=== PATIENT | female | born 1975 | race Caucasian/White ===

== ENCOUNTER → 2018-04-01 08:39 | Outpatient (CLI) | payer OTHER, SELFPAY ==
--- NOTE | 2018-04-01 08:46 | MM_ITS ---
MM Dig screening mamm BI w/CAD CAD Screening COMPARISON: Digital mammograms 06/22/2016 and 6 month follow-up views left breast 01/04/2017 INDICATION: Is a history of breast cancer patient maternal grandmother. TECHNIQUE: Standard CC and MLO images were obtained. R2 CAD reviewed. FINDINGS: Prominent diffuse fibro-glandular densities are seen throughout both breasts. The findings are fairly symmetrical bilaterally. There are stable small nodular density left breast shown to be a cyst on previous ultrasound exam .There is no new or suspicious lesion in either breast and there are no suspicious microcalcifications. IMPRESSION: Moderate diffuse breast density with no suspicious lesion seen BI-RADS Category: 1 Negative RECOMMENDED FOLLOW-UP: 1YR - 1 YEAR FOLLOW-UP (A letter has been sent to the patient regarding results of the study.)
== END ==
PROVIDERS: Family Provider Family Medicine; PCP Physician Assistant; Visit Provider Obstetrics & Gynecology Gynecology
DX: Z12.31 Encounter for screening mammogram for malignant neoplasm of breast (principal)
CPT/HCPCS: 77067

== ENCOUNTER → 2019-04-18 12:30 | Outpatient (CLI) | payer OTHER, SELFPAY | PROVIDERS: Visit Provider Family Medicine | DX: N30.00 Acute cystitis without hematuria (principal) | CPT/HCPCS: 87086; 87088; 87186 ==

== ENCOUNTER → 2019-08-27 09:18 | Outpatient (CLI) | payer OTHER, SELFPAY ==
--- NOTE | 2019-08-27 09:21 | MM_ITS ---
PROCEDURE: MM DIG SCREENING MAMM BI W/CAD Patient Age:44Y CLINICAL INDICATION: SCREENING COMPARISON: DMSB DIG MAMM-SCREEN DIANE from 06/22/2016 DMDXUAVL DIG MAMM-DX UNI ADD VIEWS-LT from 07/06/2016 DMDXUL DIG MAMM-DX UNI-LT W/CAD from 01/04/2017 [facility] MM Dig screening mamm BI w/CAD from 04/01/2018 TECHNIQUE: Standard CC and MLO images were obtained. R2 CAD reviewed. FINDINGS: Left breast: On today's CC view there is a focal 1 cm area of density at the lateral central left breast but there is a corresponding area on the MLO view... this area believe is been present before and in fact there were spot views of this region Jun 2016. On today's CC view it does appear to be denser and more focal although favor this is most likely merely due to summation shadow, as it this density seems in the TM looks the to dissipate and appear stable on the MLO view. No added axillary CC view included today. his areas was highlighted by CAD computer review as wel. It does warrant additional views to further evaluate: Recommend cc and MLO spot view along with a full 90 degree view and and axillary CC view left breast also suggested The right breast appears stable with no new areas of concern . Today's slightly civil engineering manager technique does slightly accentuates the fibroglandular elements both breast IMPRESSION: Left breast-small focal area of density on the lateral breast on CC view is most likely due to summation shadow but does warrant additional spot views and ultrasound to further survey Right breast: Stable unremarkable. Follow-up 1 year on right recommended BI-RAD Category: 0 Need Additional Imaging Evaluation FOLLOW-UP: IMM Immediate Follow-up Recommended Spot views left breast recommended (A letter has been sent to the patient regarding results of the study.) Dictated by: Bert Wilson MD 08/30/2019 10:13 Electronically signed by Bert Wilson MD in [place] 08/30/2019 10:13
== END ==
PROVIDERS: PCP Physician Assistant; Visit Provider Obstetrics & Gynecology Gynecology
DX: Z12.31 Encounter for screening mammogram for malignant neoplasm of breast (principal)
CPT/HCPCS: 77067

== ENCOUNTER → 2019-09-17 15:08 | Outpatient (CLI) | payer OTHER, SELFPAY ==
--- NOTE | 2019-09-17 15:13 | MM_ITS ---
PROCEDURE: 1. MM DIG MAMM DX UNILAT LT CAD 2. US BREAST LT COMPLETE from 09/17/2019 Patient Age:44Y CLINICAL INDICATION: ABN recent screening MAMM: Asymmetric density left breast on recent screening mammogram COMPARISON: DMSB DIG MAMM-SCREEN DIANE from 06/22/2016 DMDXUAVL DIG MAMM-DX UNI ADD VIEWS-LT from 07/06/2016 DMDXUL DIG MAMM-DX UNI-LT W/CAD from 01/04/2017 [facility] MM Dig screening mamm BI w/CAD from 04/01/2018 MM DIG SCREENING MAMM BI W/CAD from 08/27/2019 US BREAST LT COMPLETE from 09/17/2019 TECHNIQUE: CC rolled CC as well views, 90 degree lateral whole breast image obtained.. In addition rolled CC views and axillary CC view view included FINDINGS: The mild asymmetric area of density upper-outer quadrant left breast DIAGNOSTIC MAMMOGRAM LEFT BREAST, including spot views: Area of minimal focal density seen noted on recent screening mammogram appears to compress out on today's additional views and spot views. This density dissipate on one view vs another, with overall pattern similar to previous studies. No persistent suspicious density or mass of significant concern. LEFT BREAST ULTRASOUND including axillary survey was also performed subsequently : Ultrasound revealed no areas of concern at left breast; the entire left breast was surveyed.. A few nonspecific benign the axillary lymph nodes observed with the axillary survey follow-up in August 2020 recommended. Annual follow-up would be important to further assure stability of this mild asymmetry. IMPRESSION: DIAGNOSTIC MAMMOGRAM LEFT BREAST,: The minimal asymmetric area of density noted on recent screening mammogram appears to compress out on today's additional views and spot views--no areas of significant concern left breast LEFT BREAST ULTRASOUND was unremarkable- Follow-up August 2020 recommended to resume annual schedule . Annual follow-up would be important to further confirm stability of the mild asymmetry BI-RAD Category: 2 Benign Finding(s) FOLLOW-UP: 1YR 1 Year Follow-up (A letter has been sent to the patient regarding results of the study.) Dictated by: Bert Wilson MD 09/21/2019 09:38 Electronically signed by Bert Wilson MD in [place] 09/21/2019 09:38
== END ==
PROVIDERS: PCP Physician Assistant; Visit Provider Obstetrics & Gynecology Gynecology
DX: R92.8 Other abnormal and inconclusive findings on diagnostic imaging of breast (principal)
CPT/HCPCS: 76641; 77065

== ENCOUNTER → 2020-06-20 13:18 | Outpatient (CLI) | payer OTHER, SELFPAY ==
[2020-06-21 16:16] LABS: Covid-19 Nasal PCR Sendout Lex NOT DETECTED
--- NOTE | 2020-06-21 16:47 | PC.NURSE ---
notifed patient of negative covid results.
== END ==
PROVIDERS: Visit Provider Internal Medicine Adolescent Medicine
DX: Z03.818 Encounter for observation for suspected exposure to other biological agents ruled out (principal)
CPT/HCPCS: U0004

== ENCOUNTER → 2020-09-06 16:32 | Outpatient (CLI) | payer OTHER, SELFPAY ==
--- NOTE | 2020-09-06 16:36 | MM_ITS ---
PROCEDURE: MM DIG SCREENING MAMM BI W/CAD Digital Breast Tomosynthesis Included CLINICAL INDICATION: SCREENING There is a history of breast cancer in the patient's paternal grandmother. COMPARISON: MG [facility] MM Dig screening mamm BI w/CAD from 04/01/2018 MG MM DIG SCREENING MAMM BI W/CAD from 08/27/2019 MG MM DIG MAMM DX UNILAT LT CAD from 09/17/2019 TECHNIQUE: Standard CC and MLO images and 3D Tomosynthesis was obtained. R2 CAD reviewed. FINDINGS: Moderate scattered diffuse fibroglandular densities are seen throughout both breasts. The findings are fairly symmetrical bilaterally. There is no suspicious lesion in either breast and no suspicious microcalcifications. IMPRESSION: Moderate breast density with no suspicious lesions seen BI-RAD Category: 1 Negative FOLLOW-UP: 1YR 1 Year Follow-up (A letter has been sent to the patient regarding results of the study.) Dictated by: Dr. Jordon Smith MD 09/09/2020 08:30 Dr. Jordon Smith MD in [place] 09/09/2020 08:30
== END ==
PROVIDERS: PCP Physician Assistant; Visit Provider Obstetrics & Gynecology Gynecology
DX: Z12.31 Encounter for screening mammogram for malignant neoplasm of breast (principal)
CPT/HCPCS: 77063; 77067

== ENCOUNTER → 2020-09-19 14:13 | Outpatient (CLI) | payer OTHER, SELFPAY ==
[2020-09-19 14:51] LABS: Hemoglobin A1C 5.3 % (4.0-6.0)
== END ==
PROVIDERS: Visit Provider Physician Assistant
DX: R73.9 Hyperglycemia, unspecified (principal)
CPT/HCPCS: 83036

== ENCOUNTER → 2020-11-04 07:06 | Outpatient (CLI) | payer OTHER, SELFPAY ==
[2020-11-04 08:40] LABS: Coronavirus 19 IgG Antibody Negative (Negative); Coronavirus 19 IgM Antibody Negative (Negative)
== END ==
PROVIDERS: PCP Physician Assistant; Visit Provider Physician Assistant
DX: Z11.52 Encounter for screening for COVID-19 (principal)
CPT/HCPCS: 36415; 86328; U0003

== ENCOUNTER → 2020-11-14 10:41 | Outpatient (CLI) | payer OTHER, SELFPAY ==
--- NOTE | 2020-11-14 10:41 | US_ITS ---
PROCEDURE: US THYROID CLINICAL INDICATION: thyromegaly COMPARISON: No exams were available for comparison FINDINGS: Right lobe: The right lobe is 3.9 x 1.2 x 1.4 cm. In the lower pole medially at its junction with the isthmus there is a 5 mm slightly hypoechoic well-circumscribed nodule. Left lobe: 3.9 x 1 x 1.2 cm. In the upper pole there is a 3 mm hypoechoic possible cystic nodule. In the lower pole there is a 6 mm mixed nodule well-circumscribed in addition, in the lower pole medially there is a 5 mm slightly hypoechoic nodule. Isthmus: A 3 mm hypoechoic nodules present in the right aspect of the isthmus centrally. Additional findings: IMPRESSION: Small bilateral thyroid nodules probably benign. Consider 6-12 month follow-up to confirm stability otherwise negative. Dictated by: Steve Miranda MD 11/14/2020 12:04 Steve Miranda MD in [place] 11/14/2020 12:04
== END ==
PROVIDERS: PCP Physician Assistant; Visit Provider Physician Assistant
DX: E01.0 Iodine-deficiency related diffuse (endemic) goiter (principal)
CPT/HCPCS: 76536

== ENCOUNTER → 2020-11-22 05:50 | Outpatient (CLI) | payer OTHER, SELFPAY | PROVIDERS: PCP Physician Assistant; Visit Provider Physician Assistant | DX: Z20.822 Contact with and (suspected) exposure to COVID-19 (principal); U07.1 COVID-19 | CPT/HCPCS: U0003 ==

== ENCOUNTER → 2020-12-19 13:45 | Outpatient (CLI) | payer OTHER, SELFPAY | PROVIDERS: Visit Provider Physician Assistant | DX: R30.0 Dysuria (principal) | CPT/HCPCS: 87086 ==

== ENCOUNTER → 2021-05-02 13:43 | Outpatient (CLI) | payer OTHER, SELFPAY ==
[2021-05-02 14:20] LABS: Basophils # 0.1 K/mm3 (0-0.2); Eosinophils # 0.3 K/mm3 (0.0-0.4); Eosinophils % 3.7 % (0.1-12.0); Hematocrit 40.6 % (37.0-47.0); Hemoglobin 13.7 g/dL (12.2-16.2); Lymphocytes # 2.5 K/mm3 (0.7-4.5); Lymphocytes % 34.4 % (10-50); Mean Corpuscular HGB Conc 33.8 g/dL (31.8-35.4); Mean Corpuscular Hemoglobin 29.4 pg (27.0-31.2); Monocytes # 0.3 K/mm3 (0.1-1.0); Monocytes % 4.1 % (1.7-9.3); Neutrophils # 4.2 K/mm3 (1.8-7.8); Neutrophils % 56.7 % (37.0-80.0); Platelet Count 337 K/mm3 (142-424); Red Blood Count 4.66 M/mm3 (4.20-5.40); Red Cell Distribution Width 12.9 % (11.5-17.5); White Blood Count 7.4 K/mm3 (4.8-10.8)
[2021-05-02 14:53] LABS: Erythrocyte Sedimentation Rate 16 mm/hr (0-20)
[2021-05-02 15:03] LABS: Free T4 (Free Thyroxine) 0.86 ng/dl (0.78-2.19)
[2021-05-02 16:29] LABS: Alanine Aminotransferase 27 U/L (12-78); Albumin Level 4.2 g/dl (3.5-5.0); Albumin/Globulin Ratio 1.6 (1.1-1.8); Alkaline Phosphatase 110 U/L (38-126); Anion Gap 15.4 mEq/L (5-15); Aspartate Amino Transferase 28 U/L (14-36); Bilirubin,Total 0.5 mg/dl (0.2-1.3); Blood Urea Nitrogen 11 mg/dl (7-17); Carbon Dioxide 28 mmol/L (22.0-30.0); Chloride 101 mmol/L (98-107); Estimated Glomerular Filt Rate 90 ml/min (>60); GFR (African American) 109 ML/MIN (>60); Gamma Glutamyl Transpeptidase 24 U/L (12-43); Globulin 2.7 g/dL (1.3-3.2); Glucose 74 mg/dl (74-100); Potassium 4.4 mmoL/L (3.5-5.1); Sodium 140 mmol/L (136-145); Total Protein,Serum 6.9 g/dl (6.3-8.2)
[2021-05-02 16:35] LABS: C-Reactive Protein 4.5 mg/L (0-4)
[2021-05-02 18:43] LABS: Thyroid Stimulating Hormone 1.18 uIU/mL (0.465-4.68)
[2021-05-02 19:01] LABS: Vitamin B12 541 pg/mL (239-931)
[2021-05-04 05:30] LABS: HIV Screen 4th Generation wRfx Non Reactive (Non Reactive)
[2021-05-04 09:39] LABS: Thyroid Peroxidase Antibodies <9 IU/mL (0-34)
[2021-05-04 10:25] LABS: Hep A Ab, IgM Negative (Negative); Hepatitis B Core Antibody IgM Negative (Negative); Hepatitis B Surface Antigen Negative (Negative); Hepatitis C Antibody <0.1 s/co ratio (0.0-0.9)
[2021-05-04 12:15] LABS: RA Latex Turbid. <10.0 IU/mL (0.0-13.9)
[2021-05-04 13:45] LABS: Peripheral Smear Review Scanned Result
[2021-05-04 14:21] LABS: Anti-Centromere B Antibodies <0.2 AI (0.0-0.9); Anti-DNA (DS) Ab Qn <1 IU/mL (0-9); Anti-Jo-1 <0.2 AI (0.0-0.9); Anti-Smith Antibody <0.2 AI (0.0-0.9); Antichromatin Antibodies <0.2 AI (0.0-0.9); Antiscleroderma-70 Antibodies 0.2 AI (0.0-0.9); RNP Antibodies 0.2 AI (0.0-0.9); Sjogren's Anti-SS-A <0.2 AI (0.0-0.9); Sjogren's Anti-SS-B <0.2 AI (0.0-0.9)
[2021-05-05 16:56] LABS: Thyroid Stimulating Immunoglob <0.10 IU/L (0.00-0.55)
[2021-05-05 23:07] LABS: Anti-Cyclic Citrullinated Pept 5 units (0-19)
== END ==
PROVIDERS: Visit Provider Physician Assistant
DX: L50.9 Urticaria, unspecified (principal); R53.83 Other fatigue
CPT/HCPCS: 80053; 80074; 82607; 82977; 84439; 84443; 84445; 85025; 85651; 86140; 86200; 86225; 86235; 86376; 86431; 86703; G0432

== ENCOUNTER → 2021-05-24 08:21 | Outpatient (CLI) | payer OTHER, SELFPAY ==
--- NOTE | 2021-05-24 08:22 | US_ITS ---
PROCEDURE: US THYROID CLINICAL INDICATION: 6 mth followup COMPARISON: US US THYROID from 11/14/2020 FINDINGS: Right lobe: Right lobe is 3.7 x 1.2 x 1.2 cm. There is a stable hypoechoic 5 mm nodule in the isthmus region on the right adjacent to the lower pole. This is not significantly changed. Left lobe: 3.9 x 1.2 x 1.5 cm. 4 mm cystic nodule upper pole unchanged. 4 mm mixed nodule lower pole unchanged. 5 mm isoechoic nodule mid pole medially unchanged. Isthmus: A five mm slightly hypoechoic nodules present in the central aspect of the isthmus which appears slightly more prominent compared to the previous exam measuring 3 mm. Additional findings: IMPRESSION: Small bilateral thyroid nodules most of which are unchanged. A small nodule in the central aspect of the isthmus appears slightly larger but still with a fairly benign appearance. Continued six-month follow-up suggested. Dictated by: Steve Miranda MD 05/24/2021 16:27 Steve Miranda MD in [place] 05/24/2021 16:27
== END ==
PROVIDERS: PCP Physician Assistant; Visit Provider Physician Assistant
DX: E04.1 Nontoxic single thyroid nodule (principal)
CPT/HCPCS: 76536

== ENCOUNTER → 2021-12-12 09:37 | Outpatient (CLI) | payer BC, SELFPAY ==
--- NOTE | 2021-12-12 09:47 | MM_ITS ---
PROCEDURE INFORMATION: Exam: MG Bilateral Screening 3D Mammography Exam date and time: 12/12/2021 9:47 AM Age: 46 years old Clinical indication: Encounter for screening mammogram for malignant neoplasm of breast TECHNIQUE: Imaging protocol: Bilateral Screening tomosynthesis and 2D mammography including computer-aided detection (CAD) when performed. COMPARISON: 1. MG MM DIG SCREENING MAMM BI W/CAD 09/06/2020 4:39 PM 2. MG MM DIG MAMM DX UNILAT LT CAD 09/17/2019 3:29 PM FINDINGS: MAMMOGRAPHY: Breast composition: The breast tissue is composed of scattered areas of fibroglandular density. Mass: None. Architectural distortion: None. Calcifications: No suspicious calcifications. Asymmetric density: None. Skin thickening: None. Axillary adenopathy: None. IMPRESSION: No mammographic evidence of malignancy. Annual screening is recommended unless otherwise clinically indicated. ASSESSMENT: BI-RADS Category 1: Negative
== END ==
PROVIDERS: PCP Physician Assistant; Visit Provider Physician Assistant
DX: Z12.31 Encounter for screening mammogram for malignant neoplasm of breast (principal)
CPT/HCPCS: 77063; 77067

== ENCOUNTER → 2022-05-23 16:53 | Outpatient (CLI) | payer BC, SELFPAY ==
[2022-05-23 14:15] LABS: Alanine Aminotransferase 26 U/L (12-78); Albumin/Globulin Ratio 1.4 (1.1-1.8); Alkaline Phosphatase 133 U/L (38-126); Anion Gap 10.5 mEq/L (5-15); Aspartate Amino Transferase 31 U/L (14-36); Bilirubin,Total 0.8 mg/dl (0.2-1.3); Blood Urea Nitrogen 10 mg/dl (7-17); Calcium 9.4 mg/dl (8.4-10.2); Carbon Dioxide 28 mmol/L (22.0-30.0); Chloride 104 mmol/L (98-107); Chol/HDL Ratio 5.7 (1-3.5); Cholesterol 300 mg/dl (140-200); Estimated Glomerular Filt Rate 90 ml/min (>60); GFR (African American) 109 ML/MIN (>60); Globulin 2.8 g/dL (1.3-3.2); Glucose 90 mg/dl (74-100); HDL Cholesterol 53 mg/dl (40-60); Potassium 4.5 mmoL/L (3.5-5.1); Sodium 138 mmol/L (136-145); Total Protein,Serum 6.8 g/dl (6.3-8.2); Triglycerides 195 mg/dl (30-150); VLDL Cholesterol 39 mg/dL (0-40)
[2022-05-23 14:19] LABS: Basophils # 0.1 K/mm3 (0-0.2); Basophils % 1.8 % (0.1-2.0); Eosinophils # 0.2 K/mm3 (0.0-0.4); Eosinophils % 3.3 % (0.1-12.0); Hematocrit 44.6 % (37.0-47.0); Hemoglobin 13.9 g/dL (12.2-16.2); Lymphocytes # 2.2 K/mm3 (0.7-4.5); Lymphocytes % 33.1 % (10-50); Mean Corpuscular HGB Conc 31.1 g/dL (31.8-35.4); Mean Corpuscular Hemoglobin 28.6 pg (27.0-31.2); Mean Corpuscular Volume 91.8 fl (81-99); Mean Platelet Volume 9.9 fl (7.4-10.4); Monocytes # 0.3 K/mm3 (0.1-1.0); Monocytes % 4.9 % (1.7-9.3); Neutrophils # 3.9 K/mm3 (1.8-7.8); Neutrophils % 56.9 % (37.0-80.0); Platelet Count 381 K/mm3 (142-424); Red Blood Count 4.86 M/mm3 (4.20-5.40); White Blood Count 6.8 K/mm3 (4.8-10.8)
[2022-05-23 14:25] LABS: Direct LDL Cholesterol 180.25 mg/dL (100-129)
[2022-05-23 14:32] LABS: Free Thyroxine Index 2.5 ug/dL (5.93-13.13); T4 (Thyroxine) 9.9 ug/dl (5.53-11.0); Triiodothryronine (T3) Uptake 25 % (23.5-40.5)
[2022-05-23 14:33] LABS: 25-OH Vitamin D, Total 28.2 ng/mL (30-100); T4 (Thyroxine) 9.6 ug/dl (5.53-11.0)
[2022-05-23 14:45] LABS: Thyroid Stimulating Hormone 1.44 uIU/mL (0.465-4.68)
[2022-05-23 15:54] LABS: Hemoglobin A1C 5.4 % (4.0-6.0)
[2022-05-25 11:16] LABS: C-Peptide 3.6 ng/mL (1.1-4.4); FSH 4.8 mIU/mL (.); LH 7.6 mIU/mL (.); Progesterone 0.2 ng/mL (.); Testosterone,Total 15 ng/dL (4-50)
[2022-05-29 14:17] LABS: Estrogen 127 pg/mL (.)
== END ==
PROVIDERS: PCP Physician Assistant; Visit Provider Physician Assistant
DX: R23.2 Flushing (principal); R73.9 Hyperglycemia, unspecified; Z80.8 Family history of malignant neoplasm of other organs or systems; E55.9 Vitamin D deficiency, unspecified
CPT/HCPCS: 80053; 80061; 82306; 82672; 83001; 83002; 83036; 84144; 84403; 84436; 84443; 84479; 84681; 85025

== ENCOUNTER → 2022-05-28 11:17 | Outpatient (CLI) | payer BC, SELFPAY ==
--- NOTE | 2022-05-28 11:17 | US_ITS ---
FINAL REPORT CLINICAL HISTORY: 1 year follow up thyroid COMPARISON: May 24, 2021 FINDINGS: THYROID ULTRASOUND The right lobe of the thyroid measures 3.8 x 1.3 x 1.2 cm. The left lobe of the thyroid measures 4.0 x 1.5 x 0.9 cm. There is a solid hypoechoic 5 x 4 x 2 mm TI-RADS 4 nodule in the right lobe adjacent to the isthmus stable from the prior exam. In the right lobe is a 4 x 3 x 2 mm cystic TI-RADS 1 nodule. In the mid left thyroid lobe is a 5 x 4 x 4 mm solid hypoechoic TI-RADS 4 nodule. Also in the left lobe is a 5 x 5 x 3 mm solid hypoechoic TI-RADS 4 nodule. All nodules are stable as compared to the prior exam. IMPRESSION: Multiple bilateral thyroid nodules, stable. Reviewed, Interpreted and Dictated by Chris Scott III, MD Transcribed by Joseph Duran Authenticated and . [facility]
== END ==
PROVIDERS: PCP Physician Assistant; Visit Provider Physician Assistant
DX: Z80.8 Family history of malignant neoplasm of other organs or systems (principal); Z79.899 Other long term (current) drug therapy
CPT/HCPCS: 76536

== ENCOUNTER → 2022-12-18 10:12 | Outpatient (CLI) | payer BC, SELFPAY ==
--- NOTE | 2022-12-18 10:12 | MM_ITS ---
PROCEDURE INFORMATION: Exam: MG Bilateral Screening 3D Mammography Exam date and time: 12/18/2022 10:08 AM Age: 47 years old Clinical indication: Screening mammogram. TECHNIQUE: Imaging protocol: Bilateral Screening tomosynthesis and 2D mammography including computer-aided detection (CAD) when performed. COMPARISON: 1. MG MM DIG SCREENING MAMM BI W/CAD 12/12/2021 9:45 AM 2. MG MM DIG SCREENING MAMM BI W/CAD 09/06/2020 4:39 PM 3. MG MM DIG MAMM DX UNILAT LT CAD 09/17/2019 3:29 PM 4. MG MM DIG SCREENING MAMM BI W/CAD 08/27/2019 9:49 AM FINDINGS: MAMMOGRAPHY: Breast composition: There are scattered areas of fibroglandular density. Mass: None. Architectural distortion: No new or suspicious architectural distortion. Calcifications: No new or suspicious calcifications are present Asymmetric density: No new or suspicious asymmetric density is present Skin thickening: None. Axillary adenopathy: None. IMPRESSION: No mammographic evidence of malignancy. Recommend annual screening mammography unless otherwise clinically indicated. ASSESSMENT: BI-RADS category 1: Negative
== END ==
PROVIDERS: PCP Physician Assistant; Visit Provider Physician Assistant
DX: Z12.31 Encounter for screening mammogram for malignant neoplasm of breast (principal)
CPT/HCPCS: 77063; 77067

== ENCOUNTER → 2023-05-04 09:29 | Outpatient (CLI) | payer BC, SELFPAY ==
[2023-05-04 11:11] LABS: Free T4 (Free Thyroxine) 0.95 ng/dl (0.78-2.19)
[2023-05-05 07:38] LABS: Thyroid Peroxidase Antibodies 17 IU/mL (0-34)
[2023-05-07 17:53] LABS: Thyroid Stimulating Immunoglob <0.10 IU/L (0.00-0.55)
== END ==
PROVIDERS: PCP Physician Assistant; Visit Provider Physician Assistant
DX: E03.9 Hypothyroidism, unspecified (principal)
CPT/HCPCS: 36415; 84436; 84439; 84443; 84445; 86376

== ENCOUNTER → 2023-08-30 14:27 | Outpatient (CLI) | payer BC, SELFPAY ==
--- NOTE | 2023-08-30 14:28 | US_ITS ---
FINAL REPORT TECHNIQUE: Real-time grayscale and color ultrasound of the thyroid was performed. CLINICAL HISTORY: thyroid nodule COMPARISON: 05/28/2022 FINDINGS: The thyroid gland measures 38 mm on the right and 37 mm on the left. The isthmus measures 3 mm. Nodules: Right isthmus 4 x 2 x 5 mm stable solid hypoechoic TR 4 nodule. Multiple other small nodules. IMPRESSION: Multiple small nodules measuring up to 5 mm. No follow-up recommended per TI-RADS criteria. Reviewed, Interpreted and Dictated by Chris Scott III, MD Transcribed by Rocio Freedman Authenticated and [facility]
== END ==
LOC: RAD 14:28
PROVIDERS: PCP Physician Assistant; Visit Provider Physician Assistant
DX: E03.9 Hypothyroidism, unspecified (principal)
CPT/HCPCS: 76536

== ENCOUNTER 2024-01-02 11:13 | Outpatient (CLI) | payer BC, OTHER, SELFPAY ==
[2024-01-02 11:34] LABS: Basophils % 0.7 % (0.1-2.0); Eosinophils # 0.3 K/mm3 (0.0-0.4); Eosinophils % 5.2 % (0.1-12.0); Hematocrit 42.9 % (37.0-47.0); Hemoglobin 13.8 g/dL (12.2-16.2); Lymphocytes # 2.2 K/mm3 (0.7-4.5); Lymphocytes % 36.6 % (10-50); Mean Corpuscular HGB Conc 32.2 g/dL (31.8-35.4); Mean Corpuscular Hemoglobin 30.3 pg (27.0-31.2); Mean Corpuscular Volume 94.3 fl (81-99); Mean Platelet Volume 8.8 fl (7.4-10.4); Monocytes # 0.2 K/mm3 (0.1-1.0); Monocytes % 3.3 % (1.7-9.3); Neutrophils # 3.2 K/mm3 (1.8-7.8); Neutrophils % 54.3 % (37.0-80.0); Platelet Count 288 K/mm3 (142-424); Red Blood Count 4.55 M/mm3 (4.20-5.40); Red Cell Distribution Width 12.7 % (11.5-17.5)
[2024-01-02 11:44] LABS: Alanine Aminotransferase 30 U/L (12-78); Albumin Level 3.9 g/dl (3.5-5.0); Albumin/Globulin Ratio 1.7 (1.1-1.8); Alkaline Phosphatase 97 U/L (38-126); Anion Gap 11.8 mEq/L (5-15); Aspartate Amino Transferase 31 U/L (14-36); Bilirubin,Total 0.8 mg/dl (0.2-1.3); Blood Urea Nitrogen 11 mg/dl (7-17); Calcium 9.1 mg/dl (8.4-10.2); Carbon Dioxide 25 mmol/L (22.0-30.0); Chloride 107 mmol/L (98-107); Cholesterol 258 mg/dl (140-200); Estimated Glomerular Filt Rate 107 ml/min (>60); GFR (African American) 129 ML/MIN (>60); Globulin 2.3 g/dL (1.3-3.2); Glucose 120 mg/dl (74-100); HDL Cholesterol 37 mg/dl (40-60); Potassium 3.8 mmoL/L (3.5-5.1); Sodium 140 mmol/L (136-145); Total Protein,Serum 6.2 g/dl (6.3-8.2); Triglycerides 157 mg/dl (30-150); VLDL Cholesterol 31 mg/dL (0-40)
[2024-01-02 11:59] LABS: Direct LDL Cholesterol 151.96 mg/dL (100-129)
[2024-01-02 12:03] LABS: 25-OH Vitamin D, Total 41.4 ng/mL (30-100)
[2024-01-02 12:04] LABS: Free Thyroxine Index 2.3 ug/dL (5.93-13.13); T4 (Thyroxine) 8.7 ug/dl (5.53-11.0); Triiodothryronine (T3) Uptake 27 % (23.5-40.5)
[2024-01-02 13:01] LABS: Hemoglobin A1C 5.6 % (4.0-6.0)
[2024-01-03 08:26] LABS: Thyroid Peroxidase Antibodies <9 IU/mL (0-34)
== END 2024-01-02 23:59 ==
LOC: LAB.DROPOF 11:14
PROVIDERS: PCP Physician Assistant; Visit Provider Physician Assistant
DX: R73.03 Prediabetes (principal); E78.5 Hyperlipidemia, unspecified; E03.9 Hypothyroidism, unspecified; E66.9 Obesity, unspecified; Z68.36 Body mass index [BMI] 36.0-36.9, adult; Z79.899 Other long term (current) drug therapy
CPT/HCPCS: 80053; 80061; 82306; 83036; 84436; 84443; 84479; 85025; 86376

== ENCOUNTER 2024-01-07 08:25 | Outpatient (CLI) | payer OTHER, BC, SELFPAY ==
[2024-01-10 07:43] LABS: Thyroid Stimulating Immunoglob <0.10 IU/L (0.00-0.55)
== END 2024-01-07 23:59 ==
LOC: LAB 08:26
PROVIDERS: PCP Physician Assistant; Visit Provider Physician Assistant
DX: E03.9 Hypothyroidism, unspecified (principal)
CPT/HCPCS: 36415; 84445

== ENCOUNTER 2024-01-16 07:51 | Outpatient (CLI) | payer OTHER, BC, SELFPAY ==
--- NOTE | 2024-01-16 07:51 | MM_ITS ---
PROCEDURE INFORMATION: Exam: MG Bilateral Screening 3D Mammography Exam date and time: 01/16/2024 7:49 AM Age: 48 years old Clinical indication: Screening examination TECHNIQUE: Imaging protocol: Bilateral Screening tomosynthesis and 2D mammography including computer-aided detection (CAD) when performed. COMPARISON: 1. MG MM DIG SCREENING MAMM BI W/CAD 12/18/2022 10:08 AM 2. MG MM DIG SCREENING MAMM BI W/CAD 12/12/2021 9:45 AM FINDINGS: MAMMOGRAPHY: Breast composition: There are scattered areas of fibroglandular density. Mass: Questionable 0.8 cm mass in the middle third of the left approximately 12 o'clock axis. Architectural distortion: None. Calcifications: No suspicious calcifications. Asymmetric density: None. Skin thickening: None. Axillary adenopathy: None. IMPRESSION: Patient to be recalled for spot compression views of the left breast in the CC and MLO projections, a full 90 degree lateral view, and possible left breast ultrasound for further evaluation of a left breast mass. ASSESSMENT: BI-RADS Category 0: Incomplete- Need Additional Imaging Evaluation and/or Prior Mammograms for Comparison.
== END 2024-01-16 23:59 ==
LOC: RAD 07:51
PROVIDERS: PCP Physician Assistant; Visit Provider Physician Assistant
DX: Z12.31 Encounter for screening mammogram for malignant neoplasm of breast (principal)
CPT/HCPCS: 77063; 77067

== ENCOUNTER 2024-02-05 07:51 | Outpatient (CLI) | payer OTHER, BC, SELFPAY ==
--- NOTE | 2024-02-05 07:52 | US_ITS ---
PROCEDURE INFORMATION: Exam: US Left Breast, Complete MG Left Diagnostic Breast Tomosynthesis Exam date and time: 02/05/2024 8:07 AM Age: 48 years old Clinical indication: Callback for additional assessment of possible 0.8 cm mass in the 12 o'clock left breast identified on screening mammogram 01/16/2024 TECHNIQUE: Imaging protocol: Complete ultrasound of all four quadrants of the left breast and the retroareolar regions, including ultrasound of the axilla when performed. Left Diagnostic tomosynthesis and 2D mammography including computer-aided detection (CAD) when performed. Unilateral or bilateral exam. COMPARISON: 09/17/2019,, 12/12/2021, 12/18/2022 FINDINGS: MAMMOGRAPHY: Breast composition: There are scattered areas of fibroglandular density. Breast mammogram findings: There is of a largely obscured 0.8 cm mass approximating 12 o'clock about 9 cm from the left nipple this demonstrates irregular margins and is mostly obscured. No associated suspicious calcifications ULTRASOUND: Breast ultrasound findings: In the region of mammographic interest, 12 o'clock 5 cm from the nipple, there is an irregular hypoechoic morphologically suspicious 0.8 x 0.5 x 0.8 cm mass IMPRESSION: Ultrasound-guided biopsy is recommended to definitively characterize a mammographically new left 12 o'clock morphologically suspicious breast mass ASSESSMENT: BI-RADS category 4: Suspicious
== END 2024-02-05 23:59 | disposition home or self-care (01) ==
LOC: RAD 07:52
PROVIDERS: PCP Physician Assistant; Visit Provider Physician Assistant
DX: R92.8 Other abnormal and inconclusive findings on diagnostic imaging of breast (principal)
CPT/HCPCS: 76641; 77061; 77065; G0279

== ENCOUNTER 2024-02-20 07:30 | Outpatient (CLI) | payer OTHER, BC, SELFPAY ==
--- NOTE | 2024-02-20 07:30 | US_ITS ---
FINAL REPORT CLINICAL HISTORY: abnormal mammogram--left breast mammatome-- dr lainez, left breast nodule FINDINGS: ULTRASOUND-GUIDED LEFT BREAST CORE BIOPSY TECHNIQUE: Limited images were obtained to localize region of interest. Subcentimeter hypoechoic lesion was again localized at 12:00. The left was prepped in a routine sterile fashion and locally anesthetized with 1% lidocaine. Standard written informed consent was obtained. An 11-gauge vacuum assisted hand-held device was utilized. The needle was positioned posterior to the lesion. Multiple vacuum assisted core samples were obtained. The lesion was noted to be significantly smaller following biopsy. A biopsy marker clip was deployed in satisfactory position. Postbiopsy mammogram showed postbiopsy changes with clip in satisfactory position. Procedure was well tolerated . CONCLUSION: 1. Technically successful ultrasound guided core vacuum assisted biopsy of left breast lesion as above. 2. Biopsy marker clip deployed Authenticated and [facility]N
--- NOTE | 2024-02-20 08:39 | MM_ITS ---
FINAL REPORT CLINICAL HISTORY: .s/p bx clip placement left breast nodule with biopsy FINDINGS: MAMMOGRAM LEFT TECHNIQUE: Standard digital 2-D views COMPARISON: 02/05/2024 and 01/06/2024 DENSITY: There are scattered areas of fibroglandular density FINDINGS: Post biopsy marker clip is noted to be in satisfactory position. The biopsy marker clip is noted to be at approximately 12:00. No discrete lesion is seen mammographically. Postbiopsy changes are noted. IMPRESSION: Biopsy marker clip in good position RECOMMENDATION: Pending histopathology evaluation Authenticated and ERN
== END 2024-02-20 23:59 | disposition home or self-care (01) ==
LOC: RAD 07:30
PROVIDERS: PCP Physician Assistant; Visit Provider Physician Assistant
DX: R92.8 Other abnormal and inconclusive findings on diagnostic imaging of breast (principal)
CPT/HCPCS: 19083; 77065; C2618

== ENCOUNTER 2024-04-23 09:50 | Outpatient (CLI) | payer OTHER, BC, SELFPAY | END 2024-04-23 23:59 | disposition home or self-care (01) | LOC: LAB.DROPOF 04-24 09:50 | PROVIDERS: PCP Physician Assistant; Visit Provider Physician Assistant | DX: N39.0 Urinary tract infection, site not specified (principal) | CPT/HCPCS: 87086 ==

== ENCOUNTER 2024-10-06 15:01 | Outpatient (CLI) | payer OTHER, BC, SELFPAY ==
--- NOTE | 2024-10-06 15:07 | CA_ITS ---
FINAL REPORT TECHNIQUE: Color Doppler, duplex Doppler and compression sonography of the left lower extremity deep venous systems was performed. CLINICAL HISTORY: Breast Cancer, Radiation therapy, painful Varicosities COMPARISON: None FINDINGS: There is no evidence of deep venous thrombosis from the level of the groin to the calf. There is superficial thrombophlebitis in a superficial calf vein. IMPRESSION: No evidence of deep venous thrombosis left lower extremity. Superficial thrombophlebitis in a superficial calf vein. Reviewed, Interpreted and Dictated by Chris Scott III, MD Transcribed by Carmela Pizarro Authenticated and [facility]
== END 2024-10-06 23:59 | disposition home or self-care (01) ==
LOC: RT 15:02
PROVIDERS: PCP Nurse Practitioner Family; Visit Provider Nurse Practitioner Family
DX: I80.02 Phlebitis and thrombophlebitis of superficial vessels of left lower extremity (principal)
CPT/HCPCS: 93971

== ENCOUNTER 2024-10-08 02:23 | Emergency (ER) | payer OTHER, BC, SELFPAY ==
[2024-10-08 02:25] VITALS: BP 133/73; PULSE 120; RESP 16; TEMP 37.4; O2SAT 96; BMI 37.4
--- NOTE | 2024-10-08 02:34 | XR_ITS ---
PROCEDURE INFORMATION: Exam: XR Chest Exam date and time: 10/08/2024 2:36 AM Age: 49 years old Clinical indication: Fever; Additional info: Fever unknown source, chemo TECHNIQUE: Imaging protocol: Radiologic exam of the chest. Views: 1 view. COMPARISON: No relevant prior studies available. FINDINGS: Tubes, catheters and devices: Central venous catheter distal tip is in the superior vena cava. Lungs: Unremarkable. No consolidation. Pleural spaces: Unremarkable. No pleural effusion. No pneumothorax. Heart/Mediastinum: Unremarkable. No cardiomegaly. Bones/joints: Unremarkable. IMPRESSION: No evidence of infiltrate or other acute process.
[2024-10-08] MEDS: ACETAMINOPHEN 500MG TAB 1000 MG PO (02:42)
[2024-10-08] MEDS: LACTATED RINGERS 1000ML 1,000 ML 999 ML IV (02:42)
--- NOTE | 2024-10-08 02:47 | [facility].EDGENADL ---
Discharge Plan Disposition Patient Disposition: Home, Self-Care Condition: Good Prescriptions Prescriptions: No Action cholecalciferol (vitamin D3) 25 mcg (1,000 unit) capsule 25 mcg PO DAILY Qty: 90 3RF esomeprazole magnesium [Nexium] 40 mg capsule,delayed release(DR/EC) 40 mg PO DAILY Qty: 90 3RF losartan 25 mg tablet 25 mg PO DAILY Qty: 30 2RF ergocalciferol (vitamin D2) 1,250 mcg (50,000 unit) capsule See Rx Instructions .ROUTE .COMPLEX Qty: 14 0RF Dose Instruction: Take 1 capsule by mouth once a week Rx Instructions: Take 1 capsule by mouth once a week thyroid (pork) [SURGERY MANAGER Thyroid] 30 mg tablet See Rx Instructions .ROUTE .COMPLEX Qty: 30 2RF Dose Instruction: Take 1 tablet by mouth once daily Rx Instructions: Take 1 tablet by mouth once daily lorazepam 0.5 mg tablet 0.5 mg PO Q8H PRN (Reason: anxiety) Qty: 30 0RF Referrals Follow up/Referrals: Dave Metzger APRN [Primary Care Provider] - See instructions Activity Restrictions/Add. Instructions Additional Instructions/Restrictions: Please follow-up with your primary care provider. Please return to the emergency department if you develop any new or worsening symptoms or become concerned for your health. Clinical Impressions Clinical Impression: Fever Qualifiers: Encounter type: initial encounter Print Language Print Language: Croatian Discharge ED Provider: Nj Moore Adult HPI General Chief complaint: Fever Stated complaint: fever Time Seen by Provider: 10/08/24 02:25 Mode of Arrival: Ambulatory Source of Information: Patient Limitations: No Limitations Description of Symptoms (Recalled from ER Triage Doc. by RN): Patient ambulatory to ED with complaints of fever. Patient with hx of breast cancer with last radiation tx on 09/29 and last chemo tx on 07/29. Patient reports that she was instructed by her oncologist that if she ran a fever for greater than 1 hour to go to emergency room. Patient temp at home was 102 orally. Current temp in ER 99.4. No meds prior to arrival. Denies any further complaints at this time. History of Present Illness HPI narrative: 49-year-old female with history of breast cancer stage II status post chemo and radiation, currently on Herceptin, presents for fever. Temp was 102 orally at home. She does not report any symptoms, denies chest pain abdominal pain shortness of breath cough urinary symptoms changes in bowel or bladder function. Last chemo was on 07/29. Last Herceptin infusion was within the last couple of weeks. Related Data Previous Rx's ?Medication ?Instructions ?Recorded cholecalciferol (vitamin D3) 25 25 mcg PO DAILY #90 caps 05/28/22 mcg (1,000 unit) capsule esomeprazole magnesium 40 mg 40 mg PO DAILY #90 caps 08/29/23 capsule,delayed release (Nexium) ergocalciferol (vitamin D2) 1,250 See Rx Instructions .Route 10/22/23 mcg (50,000 unit) capsule .COMPLEX #14 caps losartan 25 mg tablet 25 mg PO DAILY #30 tabs 10/22/23 thyroid (pork) 30 mg tablet (SURGERY MANAGER See Rx Instructions .Route 01/10/24 Thyroid) .COMPLEX #30 tabs lorazepam 0.5 mg tablet 0.5 mg PO Q8H PRN anxiety #30 tabs 03/17/24 Allergies Allergy/AdvReac Type Severity Reaction Status Date / Time lisinopril AdvReac Intermediate Cough Verified 04/23/24 14:47 rosuvastatin (From Crestor) AdvReac Intermediate Verified 04/23/24 14:47 PFSH PFSH Disclaimer: The information contained in this section may have been updated after the patient was seen, as this information can be updated by other users. Medical History (Updated 10/08/24 @ 04:51 by Nj Moore MD) Blood clot in leg Anxiety Hyperlipidemia Hypertension Hypothyroidism Surgical History History of partial hysterectomy Social History Smoking Status: Never smoker alcohol intake: current alcohol intake frequency: holidays/special occasions only substance use type: denies use current occupational status: employed Travel in the last 8 weeks: None Other Medical History Have you received the Pneumonia Vaccine: No ROS Obtained: Yes All systems reviewed & no additional complaints except as documented Physical Exam General General appearance: alert and in no apparent distress Head Head exam: atraumatic and normocephalic Eye Eye exam: Present normal appearance, PERRL and EOMI ENT ENT exam: Present normal oropharynx and normal external ear exam Neck Neck exam: Present normal inspection and full ROM Chest Chest inspection: Present normal inspection and symmetric chest wall rise; Absent tenderness Respiratory Respiratory exam: Present normal lung sounds bilaterally; Absent respiratory distress Cardiovascular Cardiovascular exam: Present regular rate and normal rhythm Abdominal Exam Abdominal exam: Present soft; Absent distention, tenderness or guarding Extremities Exam Extremities exam: Present normal inspection; Absent edema or joint swelling Back Exam Back exam: Present normal inspection; Absent tenderness Neurological Exam Neurological exam: Present alert and oriented X3; Absent motor sensory deficit Psychiatric Psychiatric exam: Present normal affect and normal mood Skin Skin exam: Present warm, dry and normal color Lymphatic Lymphatic Findings: no adenopathy Medical Decision Making Medical Records Medical records reviewed: Yes I reviewed the patient's medical records. Screening: Per USPSTF and CDC recommendations, given the prevalence of disease in our region, it is our hospital?s policy to screen for HIV and viral Hepatitis for all patients aged 18 and over and those with ongoing risk factors. Owen Inquiry Pt receiving controlled substance: No Owen was queried for this patient: No Vital Signs: 10/08/24 02:25 10/08/24 03:03 10/08/24 04:57 Temperature 99.4 F 98.5 F Temperature Source Oral Oral Oral Pulse Rate 92 H Pulse Rate [Left] 120 H Respiratory Rate 16 17 Blood Pressure 119/66 Blood Pressure [Right Arm] 133/73 Blood Pressure Mean [Right Arm] 93 Blood Pressure Source Automatic Cuff Blood Pressure Source [Right Arm] Automatic Cuff Blood Pressure Position Sitting Blood Pressure Position [Right Arm] Sitting 02 Sat by Pulse Oximetry 96 Oxygen Delivery Method Room Air Room Air Lab Data Lab results reviewed: Yes I reviewed the patient's lab results. Lab Results 10/08/24 02:42: WBC 6.1, RBC 4.32, Hgb 13.0, Hct 39.7, MCV 92.0, MCH 30.2, MCHC 32.8, RDW 13.3, Plt Count 254, MPV 8.0, Neut % (Auto) 74.9, Lymph % (Auto) 17.6, Phillips % (Auto) 5.2, Eos % (Auto) 1.7, Baso % (Auto) 0.6, Neut # (Auto) 4.6, Lymph # (Auto) 1.1, Phillips # (Auto) 0.3, Eos # (Auto) 0.1, Baso # (Auto) 0.0, Sodium 135 L, Potassium 4.1, Chloride 103, Carbon Dioxide 27, Anion Gap 9.1, BUN 10, Creatinine 0.80, Estimated Creat Clear 137, Estimated GFR 76, Est GFR ( Amer) 92, Glucose 126 H, Lactate 1.7, Calcium 9.0, Total Bilirubin 0.5, AST 30, ALT 27, Alkaline Phosphatase 102, Total Protein 6.6, Albumin 4.0, Globulin 2.6, Albumin/Globulin Ratio 1.5, HIV 1&2 Antibody Rapid Nonreactive 10/08/24 02:58: Chlamy pneumoniae PCR Not detected, Adenovirus (PCR) Not detected, B. pertussis DNA (PCR) Not detected, Coronavirus OC43 (PCR) Not detected, Coronavirus HKU1 (PCR) Not detected, Coronavirus 229E (PCR) Not detected, SARS-CoV-2 (PCR) Not detected, Coronavirus NL63 (PCR) Not detected, Human Metapneumovir PCR Not detected, Influenza A (H1) PCR Not detected, Influ A (H1N1/09) PCR Not detected, Influenza A (H3) PCR Not detected, Influenza Type A (PCR) Not detected, Influenza Type B (PCR) Not detected, M. pneumoniae (PCR) Not detected, Parainfluenza 1 (PCR) Not detected, Parainfluenza 2 (PCR) Not detected, Parainfluenza 3 (PCR) Not detected, Parainfluenza 4 (PCR) Not detected, RSV (PCR) Not detected, Entero/Rhino (PCR) Not detected 10/08/24 03:42: Urine Color Yellow, Urine Appearance Clear, Urine pH 7.5, Ur Specific Roberts 1.015, Urine Protein Negative, Urine Glucose (UA) Negative, Urine Ketones Negative, Urine Blood Negative, Urine Nitrate Negative, Urine Bilirubin Negative, Urine Urobilinogen 0.2, Ur Leukocyte Esterase Negative, Urine RBC Occasional, Urine WBC None, Ur Squamous Epith Cells 5-10, Urine Bacteria Trace 10/08/24 02:42 10/08/24 02:42 Orders (Tests/Meds): ED MEDICATIONS Discontinued Medications Generic Name Dose Route Start Last Admin Trade Name Freq PRN Reason Stop Dose Admin Acetaminophen 1,000 mg 10/08/24 02:34 10/08/24 02:42 Acetaminophen 500mg Tab PO 10/08/24 02:35 1,000 mg ONCE ONE Administration Lactated Ringer's 1,000 mls @ 999 mls/hr 10/08/24 02:45 10/08/24 02:42 Lactated Ringer's 1000 Ml Bag IV 10/08/24 03:45 999 mls/hr .Q1H1M LESLEY Administration Cefepime HCl 1 gm/ Sodium 50 mls @ 100 mls/hr 10/08/24 02:34 10/08/24 03:06 Chloride IV 10/08/24 02:35 100 mls/hr ONCE ONE Administration ORDERS Category Date Time Status CXR --portable [XR chest portable] Stat Exams 10/08/24 02:34 Completed CBC w/Auto Diff [Complete Blood Count Auto Diff] Stat Lab 10/08/24 02:42 Completed CMP [Comprehensive Metabolic Panel] Stat Lab 10/08/24 02:42 Completed Full Resp Panel w/COVID ([facility]) Routine Lab 10/08/24 02:58 Completed HIV (1&2) Antibody Rapid Stat Lab 10/08/24 02:42 Completed Hep C Ab with Reflex to RNA Stat Lab 10/08/24 02:42 Received Lactic Acid Stat Lab 10/08/24 02:42 Completed UA [Urinalysis and Microscopic] Stat Lab 10/08/24 03:42 Completed Blood Culture Stat Micro 10/08/24 03:03 Received Urine Culture Stat Micro 10/08/24 03:42 Received Medical Decision Narrative: 49-year-old female with history of breast cancer status post chemoradiation and currently therapy presents for fever with unknown source.. History was obtained via interactive discussion with patient, chart review. On arrival, patient is [afebrile, hemodynamically stable, satting appropriately, alert, oriented x4, GCS 15], moving all extremities spontaneously. Full physical exam performed and significant for no significant physical exam abnormalities. Differential includes but is not limited to neutropenic fever, bacteremia, UTI, pneumonia, viral syndrome. Patient was given 1 L IV fluid bolus, IV cefepime for symptomatic management and correction of underlying abnormalities. Workup initiated including CBC CMP UA urine culture blood culture chest x-ray viral panel. On re-evaluation, patient [remains afebrile, HD stable.] Laboratory workup independently interpreted by me and significant for normal cell lines, no evidence of neutropenia. No significant electrolyte derangement, viral panel negative, urine without evidence of infection. Imaging independently interpreted by me and significant for clear lungs bilaterally without focal opacity. See radiology read for full review of final results. Admission was considered, but deemed unnecessary due to patient is not neutropenic and is generally well-appearing. Given patient history, exam and workup, patient's presentation most likely represents fever of unknown source. Interact discussion was had with patient regarding her presentation. She was encouraged to follow-up with her team, monitor for additional symptoms, and she is given return precautions. Procedures Risk/Benefits of Procedure(s) Were Explained: Yes Critical Care Critical Care Time Critical Care Time: No
[2024-10-08 02:54] LABS: Basophils % 0.6 % (0.1-2.0); Eosinophils # 0.1 K/mm3 (0.0-0.4); Eosinophils % 1.7 % (0.1-12.0); Hematocrit 39.7 % (37.0-47.0); Lymphocytes # 1.1 K/mm3 (0.7-4.5); Lymphocytes % 17.6 % (10-50); Mean Corpuscular HGB Conc 32.8 g/dL (31.8-35.4); Mean Corpuscular Hemoglobin 30.2 pg (27.0-31.2); Monocytes # 0.3 K/mm3 (0.1-1.0); Monocytes % 5.2 % (1.7-9.3); Neutrophils # 4.6 K/mm3 (1.8-7.8); Neutrophils % 74.9 % (37.0-80.0); Platelet Count 254 K/mm3 (142-424); Red Blood Count 4.32 M/mm3 (4.20-5.40); Red Cell Distribution Width 13.3 % (11.5-17.5); White Blood Count 6.1 K/mm3 (4.8-10.8)
[2024-10-08 03:00] LABS: Lactic Acid 1.7 mmol/L (0.7-2.1)
[2024-10-08 03:01] LABS: Alanine Aminotransferase 27 U/L (12-78); Albumin/Globulin Ratio 1.5 (1.1-1.8); Alkaline Phosphatase 102 U/L (38-126); Anion Gap 9.1 mEq/L (5-15); Aspartate Amino Transferase 30 U/L (14-36); Bilirubin,Total 0.5 mg/dl (0.2-1.3); Blood Urea Nitrogen 10 mg/dl (7-17); Carbon Dioxide 27 mmol/L (22.0-30.0); Chloride 103 mmol/L (98-107); Creatinine Clearance Estimated 137 mL/min (50-200); Estimated Glomerular Filt Rate 76 ml/min (>60); GFR (African American) 92 ML/MIN (>60); Globulin 2.6 g/dL (1.3-3.2); Glucose 126 mg/dl (74-100); Potassium 4.1 mmoL/L (3.5-5.1); Sodium 135 mmol/L (136-145); Total Protein,Serum 6.6 g/dl (6.3-8.2)
[2024-10-08 03:03] LABS: Adenovirus,PCR Not Detected (NotDetected); Bordetella Pertussis Not Detected (NotDetected); Chlamydophila Pneumoniae, PCR Not Detected (NotDetected); Coronavirus 19, PCR Not Detected (NotDetected); Coronavirus 229E Not Detected (NotDetected); Coronavirus NL63 Not Detected (NotDetected); Coronavirus OC43 Not Detected (NotDetected); Coronovirus HKU1,PCR Not Detected (NotDetected); Human Metapneumovirus Not Detected (NotDetected); Influenza A, PCR Not Detected (NotDetected); Influenza AH1, 2009 Not Detected (NotDetected); Influenza AH1, PCR Not Detected (NotDetected); Influenza AH3,PCR Not Detected (NotDetected); Influenza B, PCR Not Detected (NotDetected); Mycoplasma Pneumoniae, PCR Not Detected (NotDetected); Parainfluenza 1, PCR Not Detected (NotDetected); Parainfluenza 2, PCR Not Detected (NotDetected); Parainfluenza 3, PCR Not Detected (NotDetected); Parainfluenza 4, PCR Not Detected (NotDetected); Respiratory Syncytial Virus Not Detected (NotDetected); Rhinovirus/Enterovirus Not Detected (NotDetected)
[2024-10-08] MEDS: CEFEPIME HCL 1 GM in 0.9 % SODIUM CHLORIDE 50 ML IV (03:06)
[2024-10-08 03:39] LABS: HIV (1&2) Antibody Rapid NONREACTIVE (NONREACTIVE)
[2024-10-08 03:53] LABS: Microscopic, Urine URINE MICROSCOPIC (MICROSCOPIC)
[2024-10-08 03:57] LABS: Appearance,Urine CLEAR (Clear); Bilirubin,Urine Negative (Negative); Blood, Urine Negative (Negative); Color,Urine YELLOW (Yellow); Glucose,Urine (UA) Negative (Negative); Ketones,Urine Negative (Negative); Leukocyte Esterase,Urine Negative (Negative); Nitrate,Urine Negative (Negative); PH,Urine 7.5 (5.0-8.5); Protein,Urine Negative (Negative); Specific Gravity, Urine 1.015 (1.005-1.030); Urobilinogen,Urine 0.2 EU/dl (0.2)
[2024-10-08 04:05] LABS: Bacteria,Urine Trace /lpf; RBC,Urine Occasional #/hpf (0-3)
[2024-10-08 04:57] VITALS: BP 119/66; PULSE 92; RESP 17; TEMP 36.9; O2SAT 94
[2024-10-09 06:11] LABS: HCV Ab Non Reactive (Non Reactive)
== END 2024-10-08 04:58 | disposition home or self-care (01) ==
PROVIDERS: Emergency Provider Emergency Medicine; PCP Nurse Practitioner Family
DX: R50.9 Fever, unspecified (principal)
CPT/HCPCS: 71045; 80053; 81001; 83605; 85025; 86803; 87040; 87086; 87389; 87633; 96361; 96374; 99283; J0692; J7120

== ENCOUNTER 2024-10-10 07:58 | Emergency (ER) | payer OTHER, BC, SELFPAY ==
[2024-10-10 08:11] VITALS: BP 133/83; PULSE 124; RESP 20; TEMP 37.3; O2SAT 96; BMI 38.2
--- NOTE | 2024-10-10 08:32 | ED_ITS ---
Discharge Plan Disposition Patient Disposition: Home, Self-Care Condition: Good Prescriptions Prescriptions: New methylprednisolone 4 mg Tablets,Dose Pack 4 mg PO DIRECTED 6 Days Qty: 21 0RF Rx Instructions: Take 1 pack as directed for 6 days btvuqflassjptsh-nltnbluta-[id number] [Bromfed DM] 2-30-10 mg/5 mL Syrup 5 ml PO Q6H PRN (Reason: Cough) Qty: 240 0RF azithromycin [Zithromax] 250 mg tablet 250 mg PO UD DOSE PK Qty: 6 0RF Rx Instructions: Take two (2) tablets today, then one (1) tablet days #2 thru #5 amoxicillin 500 mg tablet 500 mg PO TID 10 Days Qty: 30 0RF No Action esomeprazole magnesium [Nexium] 40 mg capsule,delayed release(DR/EC) 40 mg PO DAILY Qty: 90 3RF venlafaxine 75 mg capsule,extended release 24hr 75 mg PO DAILY Patient Comments: TAKE ONE CAPSULE BY MOUTH EVERY DAY Referrals Follow up/Referrals: Dave Metzger APRN [Primary Care Provider] - See instructions Activity Restrictions/Add. Instructions Additional Instructions/Restrictions: Drink plenty of fluids. Take tylenol or ibuprofen for pain or fever. Take the medications as directed. Follow up with your regular doctor. GO TO THE ER FOR ANY WORSENING SYMPTOMS Clinical Impressions Clinical Impression: Acute viral syndrome, Acute bronchitis, UTI (urinary tract infection) Instructions Patient Instructions: Acute Bronchitis, DI for Acute Bronchitis Print Language Print Language: Uzbek Discharge ED Provider: Jose Armando Mulligan [facility] General Stated complaint: fever, cough Mode of Arrival: Ambulatory Source of Information: Patient Time Seen by Provider: 10/10/24 08:32 Description of Symptoms (Recalled from Triage Doc. by RN): fever, dry cough, WEAK FEELING, TREATED IN ED ON SATURDAY EVENING, [place]ER[place] ALL TESTS INCLUDING CHEST XRAY, RECIEVED IVFS/ABS, D/C HOME HEENT Symptoms (Recalled from RN notes): No Resp Symptoms (Recalled from RN notes): Yes Skin Symptoms (Recalled from RN notes): No MS Symptoms (Recalled from RN notes): No Functional Status (Recalled from RN notes): WNL Related Data Home Medications ?Medication ?Instructions ?Recorded ?Confirmed venlafaxine 75 mg capsule,extended 75 mg PO DAILY 10/10/24 10/10/24 release 24 hr Previous Rx's ?Medication ?Instructions ?Recorded esomeprazole magnesium 40 mg 40 mg PO DAILY #90 caps 08/29/23 capsule,delayed release (Nexium) azithromycin 250 mg tablet 250 mg PO UD DOSE PK #6 tabs 10/10/24 (Zithromax) ksabatmnhlspkan-gpixrftrmlpfoiu-RB 5 ml PO Q6H PRN Cough #240 mL 10/10/24 2 mg-30 mg-10 mg/5 mL oral syrup (Bromfed DM) methylprednisolone 4 mg tablets in 4 mg PO DIRECTED 6 days #21 tabs 10/10/24 a dose pack amoxicillin 500 mg tablet 500 mg PO TID 10 days #30 tabs 10/15/24 Allergies Allergy/AdvReac Type Severity Reaction Status Date / Time lisinopril AdvReac Intermediate Cough Verified 04/23/24 14:47 rosuvastatin (From Crestor) AdvReac Intermediate Verified 04/23/24 14:47 Worker's Comp Is this a Worker's Comp case?: No [facility] Disclaimer: The information contained in this section may have been updated after the patient was seen, as this information can be updated by other users. Medical History (Updated 10/15/24 @ 08:30 by Jose Armando Mulligan APRN) Blood clot in leg Anxiety Hyperlipidemia Hypertension Hypothyroidism Surgical History History of partial hysterectomy Social History Smoking Status: Never smoker alcohol intake: current alcohol intake frequency: holidays/special occasions only substance use type: denies use current occupational status: employed Travel in the last 8 weeks: None Have you lived/traveled outside US in past 30 days?: No Contact w/someone who lives/traveled outside US past 30 days?: No Exposure to someone with infectious disease in past 14 days?: No Do you have a fever (greater than 100.4 F or 38 C)?: No Have you tested positive for COVID-19: No Exposed to someone with COVID-19 in past 14 days?: No Do you have a sore throat?: No Do you have a cough?: No Do you have any weakness?: No Do you have any diarrhea?: No Are you experiencing any unusual bleeding?: No Do you have any muscle aches/pain?: No Do you have any abdominal pain?: No Are you experiencing loss of taste or smell?: No ROS Obtained: Yes All systems reviewed & no additional complaints except as documented Constitutional Constitutional: Reports chills and Reports fever(s) Eyes Eyes: Denies eye discharge ENT Ears, Nose, Mouth, and Throat: Reports as per HPI Cardiovascular Cardiovascular: Denies chest pain Respiratory Respiratory: Denies chest congestion and Reports cough Gastrointestinal Gastrointestingal: Reports nausea; Denies abdominal pain, constipation, cramping, diarrhea or vomiting Musculoskeletal Musculoskeletal: Denies arthralgias Integumentary/Breasts Skin/Breast: Denies rash Neurologic Neurologic: Denies paresthesias Physical Exam General General appearance: alert and in no apparent distress Eye Eye exam: Present normal appearance, PERRL and EOMI ENT ENT exam: Present mucous membranes moist and normal external ear exam Expanded ENT Exam External ear exam: Present normal external inspection TM/Canal exam: Bilateral TM: erythema and bulging Nose exam: Absent sinus tenderness Nasal speculum exam: Bilateral: normal Mouth exam: Present normal external inspection; Absent drooling Teeth exam: Present normal inspection Throat exam: Present tonsillar erythema and tonsillomegaly Neck Neck exam: Present normal inspection, full ROM and trachea midline; Absent tenderness, lymphadenopathy or thyromegaly Chest Chest inspection: Present normal inspection and symmetric chest wall rise; Absent tenderness or rash Respiratory Respiratory exam: Present normal lung sounds bilaterally; Absent respiratory distress, wheezes, stridor or accessory muscle use Cardiovascular Cardiovascular exam: Present regular rate, normal rhythm and normal heart sounds Abdominal Exam Abdominal exam: Present soft; Absent distention, tenderness, guarding, rebound or rigidity Extremities Exam Extremities exam: Present normal inspection, full ROM and normal capillary refill; Absent tenderness or calf tenderness Back Exam Back exam: Present normal inspection and full ROM; Absent tenderness Neurological Exam Neurological exam: Present alert and oriented X3 Psychiatric Psychiatric exam: Present normal affect and normal mood Skin Skin exam: Present warm, dry, intact and normal color Lymphatic Lymphatic Findings: no adenopathy Medical Decision Making Medical Records Medical records reviewed: No I reviewed the patient's medical records. Screening: Per USPSTF and CDC recommendations, given the prevalence of disease in our region, it is our hospital?s policy to screen for HIV and viral Hepatitis for all patients aged 18 and over and those with ongoing risk factors. Owen Inquiry Pt receiving controlled substance: No Vital Signs: 10/10/24 08:11 Temperature 99.2 F Temperature Source Oral Pulse Rate [Left Radial] 124 H Respiratory Rate 20 Blood Pressure [Left Arm] 133/83 Blood Pressure Mean [Left Arm] 99 02 Sat by Pulse Oximetry 96 Lab Data Lab results reviewed: Yes I reviewed the patient's lab results. 10/10/24 08:43 10/10/24 08:43
[2024-10-10 08:39] LABS: Apearance,Urine Clear (Clear); Bilirubin,Urine Negative (Negative); Blood, Urine Negative (Negative); Color,Urine Yellow (Yellow); Glucose,Urine (UA) Negative (Negative); Ketones,Urine Negative (Negative); PH,Urine 6.5 (5.0-8.5); Protein,Urine Negative (Negative); UTC Leukocyte Esterase,Urine Negative (Negative); UTC Nitrate,Urine Negative (Negative); Urobilinogen,Urine 0.2 EU/dl (0.2)
--- NOTE | 2024-10-10 08:44 | XR_ITS ---
PROCEDURE INFORMATION: Exam: XR Chest Exam date and time: 10/10/2024 8:39 AM Age: 49 years old Clinical indication: Cough and other: Congestion - green; Additional info: Cough, congestion TECHNIQUE: Imaging protocol: Radiologic exam of the chest. Views: 2 views. COMPARISON: CR XR CHEST PORTABLE 10/08/2024 2:36 AM FINDINGS: Tubes, catheters and devices: Right-sided Port-A-Cath terminates in the region of the distal SVC. Lungs: Unremarkable. No consolidation. Pleural spaces: Unremarkable. No pleural effusion. No pneumothorax. Heart/Mediastinum: Unremarkable. No cardiomegaly. Bones/joints: Unremarkable. IMPRESSION: No acute findings.
[2024-10-10 08:58] LABS: UTC Influenza A Antigen Negative (Negative); UTC Influenza B Antigen Negative (Negative)
[2024-10-10 09:09] LABS: Basophils % 0.8 % (0.1-2.0); Eosinophils # 0.1 K/mm3 (0.0-0.4); Eosinophils % 1.8 % (0.1-12.0); Hematocrit 41.1 % (37.0-47.0); Hemoglobin 13.6 g/dL (12.2-16.2); Lymphocytes # 1.2 K/mm3 (0.7-4.5); Lymphocytes % 25.7 % (10-50); Mean Corpuscular Hemoglobin 30.3 pg (27.0-31.2); Mean Corpuscular Volume 91.8 fl (81-99); Mean Platelet Volume 7.9 fl (7.4-10.4); Monocytes # 0.2 K/mm3 (0.1-1.0); Monocytes % 5.3 % (1.7-9.3); Neutrophils % 66.5 % (37.0-80.0); Platelet Count 231 K/mm3 (142-424); Red Blood Count 4.48 M/mm3 (4.20-5.40); Red Cell Distribution Width 12.8 % (11.5-17.5); White Blood Count 4.5 K/mm3 (4.8-10.8)
[2024-10-10 09:23] LABS: Monoscreen (Rapid) Negative (Negative)
[2024-10-10 09:35] LABS: Chloride 103 mmol/L (98-107); Potassium 4.6 mmoL/L (3.5-5.1); Sodium 138 mmol/L (136-145)
[2024-10-10 09:38] LABS: Alanine Aminotransferase 30 U/L (12-78); Albumin/Globulin Ratio 1.5 (1.1-1.8); Alkaline Phosphatase 102 U/L (38-126); Anion Gap 8.6 mEq/L (5-15); Aspartate Amino Transferase 35 U/L (14-36); Bilirubin,Total 0.4 mg/dl (0.2-1.3); Blood Urea Nitrogen 10 mg/dl (7-17); Carbon Dioxide 31 mmol/L (22.0-30.0); Creatinine Clearance Estimated 124 mL/min (50-200); Estimated Glomerular Filt Rate 67 ml/min (>60); GFR (African American) 81 ML/MIN (>60); Globulin 2.6 g/dL (1.3-3.2); Total Protein,Serum 6.6 g/dl (6.3-8.2)
[2024-10-10 09:39] LABS: Calcium 9.5 mg/dl (8.4-10.2); Glucose 107 mg/dl (74-100)
[2024-10-10 10:01] LABS: UTC Strep Screen (Rapid) Negative (Negative)
[2024-10-10 11:05] VITALS: BP 133/83; PULSE 124; RESP 20; TEMP 37.3
[2024-10-10 11:36] LABS: Coronavirus 19, PCR Not Detected (NotDetected); Influenza A, PCR Not Detected (NotDetected); Influenza B, PCR Not Detected (NotDetected)
== END 2024-10-10 11:09 | disposition home or self-care (01) ==
PROVIDERS: Emergency Provider Nurse Practitioner Family; PCP Nurse Practitioner Family
DX: N39.0 Urinary tract infection, site not specified (principal); J20.9 Acute bronchitis, unspecified; B34.9 Viral infection, unspecified; R50.9 Fever, unspecified; R05.9 Cough, unspecified; R53.1 Weakness; R11.0 Nausea
CPT/HCPCS: 71046; 80053; 81003; 85025; 86318; 87086; 87088; 87186; 87636; 87804; 87880; 99212; G0381

== ENCOUNTER 2024-10-13 09:42 | Outpatient (CLI) | payer OTHER, BC, SELFPAY ==
--- NOTE | 2024-10-13 | CA_ITS ---
FINAL REPORT TECHNIQUE: Compression porter scale and Doppler evaluation CLINICAL HISTORY: follow up cancer patient with superficial thrombophlebitis of left anterior lateral varicosed calf vein. Persistent thrombophlebitis of said vessel though very improved with less thrombi COMPARISON: 10/06/2024. FINDINGS: LEFT LOWER EXTREMITY DOPPLER: Femoral and popliteal veins show normal compressibility and flow. Visualized portion of the deep calf veins are patent by Doppler exam. There is residual persistent thrombophlebitis of the left anterior lateral varicose vein, although flow has improved significantly since the prior exam of October 06. IMPRESSION: No evidence of left lower extremity deep venous thrombosis Improvement in flow in the thrombosed superficial left varicose vein since the prior exam of October 06. Reviewed, Interpreted and Dictated by Bharat Tamayo MD Transcribed by Sri Red Authenticated and [facility]
== END 2024-10-13 23:59 | disposition home or self-care (01) ==
LOC: RT 09:43
PROVIDERS: PCP Nurse Practitioner Family; Visit Provider Internal Medicine Hematology & Oncology
DX: I80.02 Phlebitis and thrombophlebitis of superficial vessels of left lower extremity (principal); C50.912 Malignant neoplasm of unspecified site of left female breast; Z17.0 Estrogen receptor positive status [ER+]
CPT/HCPCS: 93971

== ENCOUNTER 2024-10-27 16:00 | Outpatient (RCR) | payer OTHER, BC, SELFPAY | END 2024-10-27 23:59 | disposition home or self-care (01) | LOC: PT 16:00 | PROVIDERS: PCP Physician Assistant; Visit Provider Radiology Radiation Oncology | DX: C50.912 Malignant neoplasm of unspecified site of left female breast (principal); Z17.0 Estrogen receptor positive status [ER+] | CPT/HCPCS: 97110; 97140; 97163 ==

== ENCOUNTER 2024-11-05 12:35 | Outpatient (CLI) | payer OTHER, BC, SELFPAY ==
--- NOTE | 2024-11-05 12:38 | XR_ITS ---
FINAL REPORT CLINICAL HISTORY: PAIN COMPARISON: None FINDINGS: RIGHT KNEE Three views demonstrate no acute fracture or dislocation. The joint spaces appear normal. No acute soft tissue abnormality is seen. IMPRESSION: No acute bony abnormality. Reviewed, Interpreted and Dictated by Judson Baez MD Transcribed by Carmela Pizarro Authenticated and [facility]
== END 2024-11-05 23:59 | disposition home or self-care (01) ==
LOC: RAD 12:36
PROVIDERS: PCP Nurse Practitioner Family; Visit Provider Nurse Practitioner Family
DX: M25.561 Pain in right knee (principal)
CPT/HCPCS: 73562

== ENCOUNTER 2024-11-27 15:00 | Outpatient (RCR) | payer OTHER, BC, SELFPAY | END 2024-11-27 23:59 | disposition home or self-care (01) | LOC: PT 15:00 | PROVIDERS: PCP Physician Assistant; Visit Provider Orthopaedic Surgery | DX: R60.9 Edema, unspecified (principal); C50.912 Malignant neoplasm of unspecified site of left female breast; Z17.0 Estrogen receptor positive status [ER+] | CPT/HCPCS: 97140; 97164 ==

== ENCOUNTER 2024-11-29 14:25 | Emergency (ER) | payer OTHER, BC, SELFPAY ==
[2024-11-29 15:40] VITALS: BP 130/77; PULSE 110; RESP 23; TEMP 37.1; O2SAT 98; BMI 37.5
--- NOTE | 2024-11-29 16:01 | ED_ITS ---
Discharge Plan Disposition Patient Disposition: Home, Self-Care Condition: Good Prescriptions Prescriptions: New azithromycin [Zithromax Z-Matt] 250 mg tablet See Rx Instructions .ROUTE .COMPLEX 5 Days Qty: 6 0RF Rx Instructions: For 250 mg dose pack: take 500 mg today (day 1), then 250 mg for 4 days (days 2-5) methylprednisolone [Medrol (Matt)] 4 mg tablets,dose pack See Rx Instructions .Route .COMPLEX 6 Days Qty: 21 0RF Rx Instructions: taper pack; benzonatate 100 mg capsule 100 mg PO TID PRN (Reason: cough) Qty: 30 0RF No Action esomeprazole magnesium [Nexium] 40 mg capsule,delayed release(DR/EC) 40 mg PO DAILY Qty: 90 3RF venlafaxine 75 mg capsule,extended release 24hr 75 mg PO DAILY Patient Comments: TAKE ONE CAPSULE BY MOUTH EVERY DAY methylprednisolone 4 mg Tablets,Dose Pack 4 mg PO DIRECTED 6 Days Qty: 21 0RF Rx Instructions: Take 1 pack as directed for 6 days uaqernnwkwcjviz-tookqzyou-QE [Bromfed DM] 2-30-10 mg/5 mL Syrup 5 ml PO Q6H PRN (Reason: Cough) Qty: 240 0RF azithromycin [Zithromax] 250 mg tablet 250 mg PO UD DOSE PK Qty: 6 0RF Rx Instructions: Take two (2) tablets today, then one (1) tablet days #2 thru #5 amoxicillin 500 mg tablet 500 mg PO TID 10 Days Qty: 30 0RF fluconazole 150 mg tablet 150 mg PO ONCE Qty: 1 3RF Referrals Follow up/Referrals: Stephanie Olivera APRN [Primary Care Provider] - See instructions Activity Restrictions/Add. Instructions Additional Instructions/Restrictions: * Start antibiotic today. Be sure to complete entire prescription even if feeling better * Monitor temp. Tylenol every 4 hours as needed and / or ibuprofen every 6 hours as needed ( As long as your primary care physician has told you that it ok to take both. For fever/aches/pains ER if no less than 101 despite Tylenol or Motrin * Humidifier/vaporizer or hot steamy shower * *Tessalon Perles will not cause drowsiness but use at bedtime to help stop cough so that you may get some rest. *Start steroid today. Helps with inflammation therefore, cough and wheezing. Follow directions on the package. Reviewed side effects. Patient reports taking them before. Follow up IMMEDIATELY for new or worsening of symptoms OR no noticeable improvement over the next 48-72 hours. 911 immediately for any life threatening symptoms such as chest pain or difficulty breathing Clinical Impressions Clinical Impression: Acute bronchitis Instructions Patient Instructions: Acute Bronchitis Print Language Print Language: Kinyarwanda Discharge ED Provider: Oralia Sorensen [facility] [place] General Stated complaint: sob, cough Mode of Arrival: Ambulatory Source of Information: Patient Limitations: No Limitations Time Seen by Provider: 11/29/24 16:02 Description of Symptoms (Recalled from Triage Doc. by RN): PATIENT C/O PRODUCTIVE COUGH WITH BLOOD-TINGED SPUTUM FOR ALMOST 2 WEEKS HEENT Symptoms (Recalled from RN notes): No Resp Symptoms (Recalled from RN notes): Yes Skin Symptoms (Recalled from RN notes): No MS Symptoms (Recalled from RN notes): No Functional Status (Recalled from RN notes): WNL History of Present Illness Provider Complaint: Patient states that she has a hx of breast cancer States she has had a cough and chest congestion for about 2 weeks and at times she is coughing up thick greenish colored mucous and this morning she noticed it was a little blood tinged States that it is not alot of blood and not any clots States her throat has been irritated and she hasnt had a voice States that she has checked herself several times for COID and those test have been negative but today she came in to get checked Related Data Home Medications ?Medication ?Instructions ?Recorded ?Confirmed venlafaxine 75 mg capsule,extended 75 mg PO DAILY 10/10/24 10/10/24 release 24 hr Previous Rx's ?Medication ?Instructions ?Recorded esomeprazole magnesium 40 mg 40 mg PO DAILY #90 caps 08/29/23 capsule,delayed release (Nexium) azithromycin 250 mg tablet 250 mg PO UD DOSE PK #6 tabs 10/10/24 (Zithromax) qytofauzkwilwjk-ujkqsgupizdlwwp-SZ 5 ml PO Q6H PRN Cough #240 mL 10/10/24 2 mg-30 mg-10 mg/5 mL oral syrup (Bromfed DM) methylprednisolone 4 mg tablets in 4 mg PO DIRECTED 6 days #21 tabs 10/10/24 a dose pack amoxicillin 500 mg tablet 500 mg PO TID 10 days #30 tabs 10/15/24 fluconazole 150 mg tablet 150 mg PO ONCE 1 dose #1 tab 10/15/24 azithromycin 250 mg tablet See Rx Instructions PO .COMPLEX 5 11/29/24 (Zithromax Z-Matt) days #6 tabs benzonatate 100 mg capsule 100 mg PO TID PRN cough #30 caps 11/29/24 methylprednisolone 4 mg tablets in See Rx Instructions .Route 11/29/24 a dose pack (Medrol (Matt)) .COMPLEX 6 days #21 tabs Allergies Allergy/AdvReac Type Severity Reaction Status Date / Time lisinopril AdvReac Intermediate Cough Verified 04/23/24 14:47 rosuvastatin (From Crestor) AdvReac Intermediate Verified 04/23/24 14:47 Worker's Comp Is this a Worker's Comp case?: No [facility] Disclaimer: The information contained in this section may have been updated after the patient was seen, as this information can be updated by other users. Medical History (Updated 11/29/24 @ 17:11 by Oralia Sorensen APRN) Blood clot in leg Anxiety Hyperlipidemia Hypertension Hypothyroidism Surgical History History of partial hysterectomy Social History Smoking Status: Never smoker alcohol intake: current alcohol intake frequency: holidays/special occasions only substance use type: denies use current occupational status: employed Travel in the last 8 weeks: None Have you lived/traveled outside US in past 30 days?: No Contact w/someone who lives/traveled outside US past 30 days?: No Exposure to someone with infectious disease in past 14 days?: No Do you have a fever (greater than 100.4 F or 38 C)?: No Have you tested positive for COVID-19: No Exposed to someone with COVID-19 in past 14 days?: No Do you have a sore throat?: No Do you have a cough?: No Do you have any weakness?: No Do you have any diarrhea?: No Are you experiencing any unusual bleeding?: No Do you have any muscle aches/pain?: No Do you have any abdominal pain?: No Are you experiencing loss of taste or smell?: No ROS Obtained: Yes All systems reviewed & no additional complaints except as documented and Yes Systems reviewed as appropriate & no additional complaints except as documented Constitutional Constitutional: Reports system reviewed and no additional complaints, except as documented, Reports as per HPI, Denies body ache, Denies chills, Denies fever(s) and Denies headache(s) ENT Ears, Nose, Mouth, and Throat: Reports system reviewed and no additional complaints, except as documented, Reports as per HPI, Denies otalgia, Denies headache(s), Denies nasal congestion, Denies nasal discharge, Denies sinus pain, Denies sinus pressure and Denies sore throat Cardiovascular Cardiovascular: Reports system reviewed and no additional complaints, except as documented and Reports as per HPI Respiratory Respiratory: Reports system reviewed and no additional complaints, except as documented, Reports as per HPI, Denies shortness of breath, Reports chest congestion, Reports cough and Reports pain with cough (at times) Gastrointestinal Gastrointestingal: Reports system reviewed and no additional complaints, except as documented and as per HPI Neurologic Neurologic: Denies headache(s) Physical Exam General General appearance: alert and in no apparent distress ENT ENT exam: Present mucous membranes moist Respiratory Respiratory exam: Present normal lung sounds bilaterally; Absent respiratory distress or wheezes Cardiovascular Cardiovascular exam: Present regular rate, normal rhythm and normal heart sounds Abdominal Exam Abdominal exam: Present soft and normal bowel sounds; Absent distention or tenderness Neurological Exam Neurological exam: Present alert, oriented X3 and normal gait Medical Decision Making Medical Records Screening: Per USPSTF and CDC recommendations, given the prevalence of disease in our region, it is our hospital?s policy to screen for HIV and viral Hepatitis for all patients aged 18 and over and those with ongoing risk factors. Owen Inquiry Pt receiving controlled substance: No Owen was queried for this patient: No Vital Signs: 11/29/24 15:40 Temperature 98.8 F Temperature Source Oral Pulse Rate [Right Brachial] 110 H Respiratory Rate 23 Blood Pressure [Right Arm] 130/77 Blood Pressure Mean [Right Arm] 94 Blood Pressure Source [Right Arm] Automatic Cuff Blood Pressure Position [Right Arm] Sitting 02 Sat by Pulse Oximetry 98 Oxygen Delivery Method Room Air Radiology Data #1: Image(s): Chest
--- NOTE | 2024-11-29 16:05 | XR_ITS ---
PROCEDURE INFORMATION: Exam: XR Chest Exam date and time: 11/29/2024 4:07 PM Age: 49 years old Clinical indication: Cough; Prior surgery; Surgery date: 6+ months; Surgery type: Port placement, breast surgery; Additional info: Cough and congestion TECHNIQUE: Imaging protocol: Radiologic exam of the chest. Views: 2 views. COMPARISON: CR XR CHEST 2V 10/10/2024 8:39 AM FINDINGS: Tubes, catheters and devices: MediPort terminates in the superior vena cava Lungs: Unremarkable. No consolidation. Pleural spaces: Unremarkable. No pleural effusion. No pneumothorax. Heart/Mediastinum: Unremarkable. No cardiomegaly. Bones/joints: Unremarkable. IMPRESSION: No acute process
[2024-11-29 17:13] VITALS: BP 130/77; PULSE 110; RESP 23; TEMP 37.1; O2SAT 98
== END 2024-11-29 17:17 | disposition home or self-care (01) ==
PROVIDERS: Emergency Provider Nurse Practitioner; PCP Nurse Practitioner Family
DX: J20.9 Acute bronchitis, unspecified (principal)
CPT/HCPCS: 71046; 99213; G0381

== ENCOUNTER 2024-12-25 16:00 | Outpatient (RCR) | payer OTHER, BC, SELFPAY | END 2024-12-25 23:59 | disposition home or self-care (01) | LOC: PT 16:00 | PROVIDERS: PCP Physician Assistant; Visit Provider Orthopaedic Surgery | DX: I89.0 Lymphedema, not elsewhere classified (principal); C50.912 Malignant neoplasm of unspecified site of left female breast; Z17.0 Estrogen receptor positive status [ER+] | CPT/HCPCS: 97140; 97164 ==

== ENCOUNTER 2025-01-20 16:30 | Outpatient (RCR) | payer OTHER, BC, SELFPAY | END 2025-01-20 23:59 | disposition home or self-care (01) | LOC: PT 16:30 | PROVIDERS: Visit Provider Orthopaedic Surgery | DX: I89.0 Lymphedema, not elsewhere classified (principal); C50.912 Malignant neoplasm of unspecified site of left female breast; Z17.0 Estrogen receptor positive status [ER+] | CPT/HCPCS: 97140 ==

== ENCOUNTER 2025-01-27 16:40 | Outpatient (RCR) | payer OTHER, BC, SELFPAY | END 2025-01-27 23:59 | disposition home or self-care (01) | LOC: PT 16:40 | PROVIDERS: Visit Provider Orthopaedic Surgery | DX: C50.912 Malignant neoplasm of unspecified site of left female breast (principal); I89.0 Lymphedema, not elsewhere classified; Z17.0 Estrogen receptor positive status [ER+] ==

== ENCOUNTER 2025-05-04 12:05 | Outpatient (CLI) | payer OTHER, BC, SELFPAY | END 2025-05-04 23:59 | disposition home or self-care (01) | LOC: DIETICIAN 12:06 | PROVIDERS: PCP Nurse Practitioner Family; Visit Provider Nurse Practitioner Family | DX: R73.03 Prediabetes (principal) | CPT/HCPCS: 97802 ==

== ENCOUNTER 2025-05-07 09:46 | Day surgery (SDC) | payer OTHER, BC, SELFPAY ==
[2025-05-06 11:50] VITALS: BMI 37.9
--- NOTE | 2025-05-07 08:45 | EXP.GEN.HP ---
HPI HPI HPI: Patient is a 49-year-old female who has a history of GERD, hypertension, hyperlipidemia, hypothyroidism, ductal carcinoma of the breast who presents for initial screening colonoscopy. She has somewhat of a family history of colon cancer with her maternal uncle being diagnosed with colon cancer at young age of 46. She has some chronic constipation which has been exacerbated on tamoxifen. [facility] Disclaimer: The information contained in this section may have been updated after the patient was seen, as this information can be updated by other users. Medical History (Updated 05/07/25 @ 10:13 by Chrsi Rouse MD) Endometriosis Seizure disorder History of cataract Breast cancer Blood clot in leg Anxiety Hyperlipidemia Hypertension Hypothyroidism Surgical History (Updated 05/06/25 @ 11:47 by Carie Villegas, RN) History of lumpectomy of left breast History of partial hysterectomy Family History (Updated 05/06/25 @ 11:47 by Carie Villegas RN) Other Family history of cancer Family history of diabetes mellitus type II Family history of myocardial infarction Social History Smoking Status: Never smoker alcohol intake: current alcohol intake frequency: holidays/special occasions only substance use type: denies use current occupational status: employed Travel in the last 8 weeks?: None Have you lived/traveled outside US in past 30 days?: No Contact w/someone who lives/traveled outside US past 30 days?: No Exposure to someone with infectious disease in past 14 days?: No Do you have a fever (greater than 100.4 F or 38 C)?: No Have you tested positive for COVID-19?: No Exposed to someone with COVID-19 in past 14 days?: No Do you have a sore throat?: No Do you have a cough?: No Do you have any weakness?: No Do you have any diarrhea?: No Are you experiencing any unusual bleeding?: No Do you have any muscle aches/pain?: No Do you have any abdominal pain?: No Are you experiencing loss of taste or smell?: No Other Medical History Have you received the Pneumonia Vaccine: No Meds Home Medications and Allergies Home Medications ?Medication ?Instructions ?Recorded ?Confirmed ?Type venlafaxine 75 mg capsule,extended 75 mg PO DAILY 10/10/24 05/07/25 History release 24 hr sodium,potassium,mag sulfates 17.5 See Rx Instructions PO .COMPLEX 04/21/25 05/06/25 Rx gram-3.13 gram-1.6 gram oral soln #354 mL (Suprep Bowel Prep Kit) losartan 25 mg tablet 25 mg PO DAILY 05/06/25 05/07/25 History tamoxifen 20 mg tablet 20 mg PO DAILY 05/06/25 05/07/25 History New Prescriptions to Start Prescriptions: Allergies Allergy/AdvReac Type Severity Reaction Status Date / Time lisinopril AdvReac Intermediate Cough Verified 05/06/25 11:48 rosuvastatin (From Crestor) AdvReac Intermediate Joint Pain Verified 05/06/25 11:48 Exam Data for Last 24 hours I & O for Last 24 hours: Intake & Output 05/04/25 05/05/25 05/06/25 05/07/25 11:59 11:59 11:59 11:59 Weight 228 lb Constitutional Constitutional: no acute distress *Routine HEENT Exam Head: Present normocephalic Eye: Present EOMI and PERRL ENT: Present mucous membranes moist *Routine Neck Exam Neck: Present supple; Absent lymphadenopathy *Routine Respiratory Exam Respiratory: Present CTA bilaterally *Routine Cardiovascular Exam Cardiovascular: Present RRR *Routine Abdominal Exam Abdominal: Present soft and normoactive bowel sounds; Absent tenderness *Routine Rectal Exam Rectal:: deferred *Routine Genitalia Exam Genitalia:: deferred *Routine Extremities Exam Extremities: Absent cyanosis, clubbing or edema *Routine Skin Exam Skin: Present warm; Absent rash *Routine Neurological Exam Neurological: Present alert and oriented X3 Assessment and Plan *Assessment and plan (1) Encounter for screening colonoscopy: Status: Acute Category: Medical Code(s): Z12.11 - Encounter for screening for malignant neoplasm of colon Plan Proceed with colonoscopy.
[2025-05-07] MEDS: LACTATED RINGERS 1000ML 1,000 ML 25 ML IV (09:56)
[2025-05-07 09:58] VITALS: BP 133/78; PULSE 100; RESP 18; TEMP 36.1; O2SAT 96
--- NOTE | 2025-05-07 10:42 | HMH.SCOPE ---
Procedure: Date: 05/07/25 Patient Date of :: 1975 Procedure Performed:: Total colonoscopy to terminal ileum Indications:: Patient is a 49-year-old female who has a history of GERD, hypertension, hyperlipidemia, hypothyroidism, ductal carcinoma of the breast who presents for initial screening colonoscopy. She has somewhat of a family history of colon cancer with her maternal uncle being diagnosed with colon cancer at young age of 46. She has some chronic constipation which has been exacerbated on tamoxifen. . Performing Provider:: Chris Rouse MD Referring Provider:: Tish Olivera Sedation:: MAC sedation Procedure:: Patient history was obtained and appropriate physical examination was performed. Patient's medications and allergies were reviewed. Informed consent was obtained after explaining the benefits, alternatives, and risks of the procedure including, but not limited to, bleeding, perforation, missed lesions, and adverse reaction to anesthesia medications. Patient was transported to endoscopy procedure room. Patient was connected to monitoring devices. Throughout the procedure the patient's blood pressure, pulse, and oxygen saturations were monitored continuously. Patient identification and planned procedure were verified by the staff. Patient was positioned in lateral decubitus position. Digital anorectal exam was performed. Variable stiffness Olympus colonoscope was inserted and advanced under direct visualization to the cecum. Adequacy of the colonic preparation was noted. The colonoscope was advanced a short distance into the terminal ileum. The colonoscope was then slowly withdrawn while carefully examining the color, texture, anatomy, and integrity of the mucosoa circumferentially. Within the rectum retroflexion was performed. Colonoscope was then withdrawn. Impression: Colonic prep was excellent. There were left colon diverticula, otherwise colonoscopy unremarkable. Findings:: Rare left-sided diverticuli Recommendations:: Repeat colonoscopy 7 to 10 years unless otherwise indicated Complications:: None immediately apparent Estimated blood obtained (mL): 0 Colonoscopy Component Colonoscopy Component Was a colonoscopy performed during today's procedure?: Yes Recommended follow up colonoscopy of at least 10 years?: Yes
[2025-05-07 10:44] VITALS: BP 95/54; PULSE 90; RESP 17; TEMP 36.1; O2SAT 97
[2025-05-07 10:54] VITALS: BP 125/80; PULSE 89; RESP 17; TEMP 36.1; O2SAT 98
--- NOTE | 2025-05-07 11:03 | EXP.ANES.CKL ---
[facility] Disclaimer: The information contained in this section may have been updated after the patient was seen, as this information can be updated by other users. Medical History (Updated 05/07/25 @ 10:13 by Chris Rouse MD) Endometriosis Seizure disorder History of cataract Breast cancer Blood clot in leg Anxiety Hyperlipidemia Hypertension Hypothyroidism Surgical History (Updated 05/06/25 @ 11:47 by Carie Villegas RN) History of lumpectomy of left breast History of partial hysterectomy Family History (Updated 05/06/25 @ 11:47 by Carie Villegas RN) Other Family history of cancer Family history of diabetes mellitus type II Family history of myocardial infarction Social History Smoking Status: Never smoker alcohol intake: current alcohol intake frequency: holidays/special occasions only substance use type: denies use current occupational status: employed Travel in the last 8 weeks?: None [facility] Anesthesia Checklist Patient Identification Patient Identification: Arm Band and Family Structural Data Admitted From: Home Planned Operative Procedure/s: Colonoscomy Consent for Planned Operative Procedure(s) Verified: Yes Verified Documents: Surgical Consent and History and Physical NPO Status Verified Time NPO: 00:00 Additional verifications Patient : No Anesthesia Reactions: No Hx Blood Transfusions: No Blood Transfusion Reaction: No Cephalosporin Allergy: No Previous Colonoscopy: No Airway Assessment Mallampati Score:: Class II C-Spine Mobility Assessed: Yes TMJ Mobility Assessed: Yes Dentition: Good Dentition Neurological Assessment Level of Consciousness: Awake, Alert, Appropriate and Follows Commands Hx Seizures: No Numbness or tingling in extremities: No Anesthesia Plan Anesthesia Risk discussed: Yes ASA Class: II Anesthesia Type: MAC
[2025-05-07 11:04] VITALS: BP 128/76; PULSE 86; RESP 18; TEMP 37.2; O2SAT 99
[2025-05-07 11:14] VITALS: BP 120/66; PULSE 85; RESP 18; TEMP 36.1; O2SAT 99
== END 2025-05-07 11:20 | disposition home or self-care (01) ==
PROVIDERS: PCP Nurse Practitioner Family; Visit Provider Surgery
PROC: 0DJD8ZZ Inspection of Lower Intestinal Tract, Via Natural or Artificial Opening Endoscopic (ICD-10-PCS; CPT 45378; principal; 2025-05-07 11:10)
DX: Z12.11 Encounter for screening for malignant neoplasm of colon (principal); C50.912 Malignant neoplasm of unspecified site of left female breast; Z80.0 Family history of malignant neoplasm of digestive organs; K57.30 Diverticulosis of large intestine without perforation or abscess without bleeding; K59.03 Drug induced constipation; T38.6X5A Adverse effect of antigonadotrophins, antiestrogens, antiandrogens, not elsewhere classified, initial encounter; I10 Essential (primary) hypertension; F41.9 Anxiety disorder, unspecified; Z79.899 Other long term (current) drug therapy; Z88.8 Allergy status to other drugs, medicaments and biological substances; Z79.810 Long term (current) use of selective estrogen receptor modulators (SERMs)
CPT/HCPCS: 45378; J2003; J2704; J7120

== ENCOUNTER 2025-05-19 09:20 | Outpatient (CLI) | payer OTHER, BC, SELFPAY ==
--- OUTSIDE RECORDS SUMMARY | 2024-08-04 05:40 | XMS_ITS | Encounter Summary ---
[facility] [address] [place] [address] Care Team Providers Care Foundry Tender Name Role Phone Dalila Willoughby Primary Care Provider [phone] Reason for Visit * Auth/Cert (Routine) Specialty Diagnoses / Procedures Referred By Contac t Referred To Contact Diagnoses Malignant neoplasm of unspecified site of left female breast Referral ID Status Reason Start Date Expiration Date Visits Re quested Visits Authorized [id number] 1 1 Encounter Details Date Type Department Care Team (Late st Contact Info) Description 08/04/2024 5:40 AM EDT Hospital Encounter [facility] ON[facility] [address] [phone] Social History Tobacco Use Types [...] Description 07/15/2025 11:15 AM EDT Office Visit [facility] [address] [facility] [address] [place] [phone] Rocio Kellogg MD [address] [facility] [address] [place] [address] 07/22/2025 9:00 AM EDT Appointment [facility] [address] [facility] [address] [place] [address] 11/17/2025 1:00 PM EST Office Visit [facility] [address] [place] [phone] Maria Guadalupe Escamilla MD [address] [place] [address] 11/18/2025 10:00 AM EST Office Visit [facility] [address] [place] [phone] Gissel Blum APRN [address] [place] [address] documented as of this encounter Visit Diagnoses Not on filedocumented in this encounter Additional Health Concerns Assessment Noted Time PHQ-2 Depression Total Score: 2 04/07/20 24 2:53 PM EDT documented as of this encounter Care Teams Foundry Tender Relationship Specialty Start Date End Date Dalila Willoughby PA [address] [place] [address] PCP - General Physician Mixing Picker Tender 05/07/23 10/21/24 documented as of this encounter
--- OUTSIDE RECORDS SUMMARY | 2024-11-17 15:37 | XMS_ITS | Encounter Summary ---
Author Organization [facility] Address [address] [place] [address] Care Team Providers Care Employee Communications Coordinator Name Role Phone Stephanie Olivera APRN Primary Care Provid er Reason for Visit * Diagnostic Imaging (Routine) - Closed Specialty Diagnoses / Procedures Referred By Contac t Referred To Contact Radiology Diagnoses Nontoxic multinodular goiter Procedures US Thyroid Maria Guadalupe Escamilla MD [address] [employer] [place] [address] [place] [address] Phone: tel: fax: Referral ID Status Reason Start Date Expiration Date Visits Re quested Visits Authorized [id number] Closed 11/17/2024 11/17/2025 1 1 Encounter Details Date Type Department Care Team (Late st Contact Info) Description 11/17/2024 2:37 PM EST Hospital Encounter [facility] ENDOCRINOLOGY [address] [employer] [address] [place] [phone] Social History Tobacco Use Types Packs/Day [...] Description 07/15/2025 11:15 AM EDT Office Visit [facility] HEMATOLOGY & ONCOLOGY [address] [facility] [address] [place] [phone] Rocio Kellogg MD [address] [facility] [address] [place] [address] 07/22/2025 9:00 AM EDT Appointment [facility] [address] [facility] [address] [place] [address] 11/17/2025 1:00 PM EST Office Visit [facility] ENDOCRINOLOGY [address] [place] [address] Maria Guadalupe Escamilla MD [address] [place] [address] 11/18/2025 10:00 AM EST Office Visit [facility] [address] [place] [phone] Gissel Blum APRN [address] [place] [address] documented as of this encounter Procedures Procedure [...] documented as of this encounter Care Teams Employee Communications Coordinator Relationship Specialty Start Date End Date Stephanie Olivera APRN [facility]0 [facility] [address] [facility] [address] [place] [address] PCP - General Family Medicine 10/22/24 documented as of this encounter
--- OUTSIDE RECORDS SUMMARY | 2025-04-09 11:30 | XMS_ITS | Encounter Summary ---
Author Organization [facility] Address [address] [place] [address] Care Team Providers Care Metal Fabrication Supervisor Name Role Phone Stephanie Olivera APRN Primary Care Provid er Reason for Referral * Consultation (Routine) - Pending Review Specialty Diagnoses / Procedures Referred By Contmain t Referred To Contact General Surgery Diagnoses Malignant neoplasm of left breast in female, estrogen receptor positive, unspecified site of breast Procedures CT OFFICE/OUTPATIENT NEW MODERATE MDM 45 MINUTES Dhara Delaney APRN [address] [facility] [address] [place] [address] Phone: tel: fax: Frandy Menendez MD [address] [facility] [address] [place] [address] Phone: tel: fax: Referral ID Status Reason Start Date Expiration Date Visits Requested Visits Authorized Pending Review Specialty Services Required 04/09/2025 07/09/2026 1 1 Encounter Details Date Type Department Care Team (Late st Contact Info) Description 04/09/2025 11:30 AM EDT Office Visit [facility] HEMATOLOGY & ONCOLOGY [address] [facility] [address] [place] [address] Dhara Delaney APRN [address] [facility] [address] [place] [address] Malignant neoplasm of left breast in female, estrogen receptor positive, unspecified site of breast (Primary Dx) Social History Tobacco Use Types Packs/Day Years Used Date Smoking Tobacco: Never Smokeless Tobacco: Never Tobacco Cessation:Counseling Given: Not Answered Alcohol Use Standard Drinks/Week Comments Never 0 [...] on file documented as of this encounter Last Filed Vital Signs Vital Sign Reading Time Taken Comments Blood Pressure 130/84 04/09/2025 11:26 AM EDT Pulse 78 04/09/2025 11:26 AM EDT Temperature 36.2 C (97.1 F) 04/09/2025 11:26 AM EDT Respiratory Rate - - Oxygen Saturation 99% 04/09/2025 11:26 AM EDT Inhaled Oxygen Concentration - - Weight 102 kg (225 lb) 04/09/2025 11:26 AM EDT Height 165.1 cm (5' 5 ) 04/09/2025 11:26 AM EDT Body Mass Index 37.44 04/09/2025 11:26 AM EDT documented in this encounter Progress Notes * Dhara Delaney, JERROD - 04/09/2025 11:30 AM EDT PROBLEM LIST: pT1cN0(i+)M0 ER positive (100%, 3+) CT positive (>95%, 3+) HER2 positive (2+, positive by FISH) invasive ductal carcinoma of the left breast Left breast lumpectomy on 03/27/2024. Pathology showed an intermediate grade invasive ductal carcinoma with micropapillary features measuring 1.1 cm with extensive lymphovascular invasion. Isolated tumor cells in 1 of 2 sentinel lymph nodes. Adjuvant chemotherapy with TCH started 04/15/24. Completed maintenance Herceptin 04/09/2025. Completed radiotherapy to left breast 09/29/2024. Tamoxifen started 12/03/24. Subjective CHIEF COMPLAINT: breast cancer HISTORY OF PRESENT ILLNESS: Martha Gregory returns for follow-up. She is scheduled for her last dose of maintenance Herceptin today. She continues on tamoxifen. She has noticed generalized joint pain and some brain fog since starting the tamoxifen. She continues to have leg pain along with swelling in her legs despite wearing compression stockings. Due to her ongoing leg pain she is going to go to part- time April 27, 2025. She continues to have problems with constipation despite eating prunes and taking MiraLAX daily. About once a week she has to use a laxative. Objective BP 130/84 Pulse 78 Temp 97.1 ??F (36.2 ??C) (Infrared) Ht 165.1 cm (65 ) Wt 102 kg (225 lb) SpO2 99% BMI 37.44 kg/m?? Vitals: 04/09/25 1126 PainSc: 0-No pain ECOG score: 0 General: well appearing female in no acute distress Neuro: alert and oriented HEENT: sclera anicteric, oropharynx clear Lungs: clear bilaterally Skin: no rashes, lesions, bruising, or petechiae Psych: mood and affect appropriate RECENT LABS: Lab Results Component Value Date WBC 5.36 03/18/2025 HGB 11.6 (L) 03/18/2025 HCT 35.2 03/18/2025 MCV 89.8 03/18/2025 PLT 222 03/18/2025 Lab Results Component Value Date GLUCOSE 95 03/18/2025 BUN 10 03/18/2025 CREATININE 0.72 03/18/2025 BCR 13.9 03/18/2025 K 4.0 03/18/2025 CO2 28.0 03/18/2025 CALCIUM 8.8 03/18/2025 ALBUMIN 3.7 03/18/2025 AST 15 03/18/2025 ALT 15 03/18/2025 ASSESSMENT AND PLAN: Martha Gregory is a 49 y.o. 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 She has completed 6 cycles of TCH and now continues on maintenance Herceptin. Today is her last dose of maintenance Herceptin. Tamoxifen was started 12/03/2024. She does have some generalized joint pain related to the tamoxifen. We will plan to continue the tamoxifen for minimum of 5 years. Bilateral diagnostic mammogram on 01/18/2025 was category 3. Left diagnostic mammogram recommended for 6 months. Order has already been placed. Will have our flame hardening machine setter help make arrangements for mammogram due in June. Hot flashes/anxiety: Continue Effexor. Constipation: Increase prune intake and continue Miralax. She is going to try Flaxseeds in her smoothie daily. Reinforced importance of drinking plenty of water with the flaxseed. ICE COMPRESS Study: Neuropathy improved to grade 1. Thyroid nodules: follows with endocrinology. Chronic venous insufficiency: followed by vascular surgeon Dr. Bang Barkley at [facility]. She is wearing compression socks. Nocturnal leg cramps: Improved with magnesium. We also discussed doing some walking and light stretching before bed. Will send a referral to Dr. Menendez to get port removed. Follow-up in 3 months with labs. I spent 46 minutes caring for Martha on this date of service. This time includes time spent by me in the following activities: preparing for the visit, reviewing tests, performing a medically appropriate examination and/or evaluation, counseling and educating the patient/family/caregiver, referring and communicating with other health director long term care, documenting information in the medical record, independently interpreting results and communicating that information with the patient/family/caregiver, ordering test(s), and obtaining a separately obtained history Dhara Delaney APRN [facility] Hematology [facility] Oncology 04/09/2025 CC: documented in this encounter Plan of Treatment Upcoming Encounters Date Type Department Care Team (Late st Contact Info) Description 07/15/2025 11:15 AM EDT Office Visit [facility] HEMATOLOGY & ONCOLOGY [address] [facility] [address] [place] [address] Rocio Kellogg MD [address] [facility] [address] [place] [address] 07/22/2025 9:00 AM EDT Appointment [facility] [address] [facility] [address] [place] [address] 11/17/2025 1:00 PM EST Office Visit [facility] ENDOCRINOLOGY [address] [place] [address] Maria Guadalupe Escamilla MD [address] [place] [address] 11/18/2025 10:00 AM EST Office Visit [facility] [address] [place] [address] Gissel Blum APRN [address] [place] [address] Scheduled Orders Name Type Priority Associated Diagnoses Orde r Schedule CBC & Differential Lab Panel Routine Malignant neoplasm of left breast in female, estrogen receptor positive, unspecified site of breast Expected: 07/01/2025 (Approximate), Expires: 04/09/2026 Comprehensive Metabolic Panel Lab Routine Malignant neoplasm of left breast in female, estrogen receptor positive, unspecified site of breast Expected: 07/01/2025 (Approximate), Expires: 04/10/2026 documented as of this encounter Visit Diagnoses Diagnosis Malignant neoplasm of left breast in female, estrogen receptor positive, unspecified site of breast- Primary documented in this encounter Additional Health Concerns Assessment Noted Time PHQ-2 Depression Total Score: 2 04/07/20 24 2:53 PM EDT documented as of this encounter Care Teams Metal Fabrication Supervisor Relationship Specialty Start Date End Date Stephanie Olivera APRN [address] [facility] [address] [place] [address] PCP - General Family Medicine 10/22/24 documented as of this encounter
--- OUTSIDE RECORDS SUMMARY | 2025-04-09 12:04 | XMS_ITS | Encounter Summary ---
Author Organization [facility] Address [address] [place] [address] Care Team Providers Care Radiation Physicist Name Role Phone Joselin Stephanie Tish ELDER Primary Care Provid er Reason for Visit * Episode Based Medications (Routine) - Authorized Specialty Diagnoses / Procedures Referred By Contac t Referred To Contact Diagnoses Malignant neoplasm of left breast in female, estrogen receptor positive, unspecified site of breast Procedures NM INJ., KANJINTI, 10 MG Rocio Kellogg MD [address] [address] Phone: tel: fax: Referral ID Status Reason Start Date Expiration Date V isits Requested Visits Authorized [id number] Authorized 07/29/2024 04/16/2025 1 1 Encounter Details Date Type Department Care Team (Late st Contact Info) Description 04/09/2025 12:04 PM EDT - 04/09/2025 11:59 PM EDT Hospital Encounter [facility] [address] [place] [phone] Rocio Kellogg MD [address] [place] [address] Malignant neoplasm of left breast in female, estrogen receptor positive, unspecified site of breast (Primary Dx); Port-A-Cath in place Discharge Disposition: Home or Self Care Social History Tobacco Use Types Packs/Day Years [...] on file documented as of this encounter Medications at Time of Discharge albuterol sulfate HFA 108 (90 Base) MCG/ACT inhalerIndication s:Malignant neoplasm of left breast in female, estrogen receptor positive, unspecified site of breast,Upper respiratory tract infection, unspecified type Inhale 2 puffs Every 4 (Four) Hours As Needed for Wheezing or Shortness of Air. 18 g 12/04/2024 furosemide (LASIX) 20 MG tabletIndications :Malignant neoplasm of left breast in female, estrogen receptor positive, unspecified site of breast,Ankle edema, bilateral Take 1 tablet by mouth Daily. For BLE edema 30 tablet 3 02/25/2025 ibuprofen (ADVIL,MOTRIN) 800 MG tablet Take 1 tablet by mouth 3 times a day. 11/02/2024 latanoprost (XALATAN) 0.005 % ophthalmic solution instill 1 drop onto affected eyelid/lashes EVERY DAY 02/02/2025 lidocaine-priloca ine (EMLA) 2.5-2.5 % cream Apply 1 Application topically to the appropriate area as directed As Needed (45-60 minutes prior to port access. Cover with saran/plastic wrap.). 30 g 3 04/01/2024 LORazepam (ATIVAN) 0.5 MG tablet Take 1 tablet by mouth At Night As Needed. losartan (COZAAR) 25 MG tablet Take 1 tablet by mouth Daily. 11/02/2024 Ozempic, 0.25 or 0.5 MG/DOSE, 2 MG/3ML solution pen-injector Inject 0.5 mg under the skin into the appropriate area as directed 1 (One) Time Per Week. 01/01/2025 potassium chloride 10 MEQ CR tablet Take 2 tablets by mouth Daily. Two tablets 60 tablet 3 02/25/2025 tamoxifen (NOLVADEX) 20 MG chemo tablet Take 1 tablet by mouth Daily. 30 tablet 11 12/03/2024 venlafaxine XR (EFFEXOR-XR) 75 MG 24 hr capsuleIndication s:Malignant neoplasm of left breast in female, estrogen receptor positive, unspecified site of breast TAKE ONE CAPSULE BY MOUTH EVERY DAY 30 capsule 6 02/22/2025 documented as of this encounter Plan of Treatment Upcoming Encounters Date Type Department Care Team (Late st Contact Info) Description 07/15/2025 11:15 AM EDT Office Visit [facility] [address] [facility] [address] [place] [phone] Rocio Kellogg MD [address] [facility] [address] [place] [address] 07/22/2025 9:00 AM EDT Appointment [facility] [address] [facility] [address] [place] [address] 11/17/2025 1:00 PM EST Office Visit [facility] [address] [place] [phone] Maria Guadalupe Escamilla MD [address] [facility] [address] [place] [address] 11/18/2025 10:00 AM EST Office Visit [facility] [address] [place] [phone] Gissel Blum APRN [address] [place] [address] documented as of this encounter Procedures Procedure Name Priority Date/Time Associated Diagnosis Comments CBC WITH AUTO DIFFERENTIAL Routine 04/09/2025 12:14 PM EDT Malignant neoplasm of left breast in female, estrogen receptor positive, unspecified site of breast CBC AND DIFFERENTIAL Routine 04/09/2025 12:14 PM EDT Malignant neoplasm of left breast in female, estrogen receptor positive, unspecified site of breast documented in this encounter Results * (ABNORMAL) CBC Auto Differential (04/09/2025 12:14 PM EDT) WBC 5.97 3.40 - 10.80 10*3/mm3 04/09/2025 12:44 PM EDT [facility] RBC 4.02 3.77 - 5.28 10*6/mm3 04/09/2025 12:44 PM EDT [facility] Hemoglobin 11.8(L) 12.0 - 15.9 g/dL 04/09/2025 12:44 PM EDT [facility] Hematocrit 36.4 34.0 - 46.6 % 04/09/2025 12:44 PM EDT [facility] MCV 90.5 79.0 - 97.0 fL 04/09/2025 12:44 PM EDT [facility] MCH 29.4 26.6 - 33.0 pg 04/09/2025 12:44 PM EDT [facility] MCHC 32.4 31.5 - 35.7 g/dL 04/09/2025 12:44 PM EDT [facility] RDW 12.0(L) 12.3 - 15.4 % 04/09/2025 12:44 PM EDT [facility] RDW-SD 40.2 37.0 - 54.0 fl 04/09/2025 12:44 PM EDT [facility] MPV 9.3 6.0 - 12.0 fL 04/09/2025 12:44 PM EDT [facility] Platelets 221 140 - 450 10*3/mm3 04/09/2025 12:44 PM EDT [facility] Neutrophil % 49.9 42.7 - 76.0 % 04/09/2025 12:44 PM EDT [facility] Lymphocyte % 38.7 19.6 - 45.3 % 04/09/2025 12:44 PM EDT [facility] Monocyte % 7.0 5.0 - 12.0 % 04/09/2025 12:44 PM EDT [facility] Eosinophil % 3.9 0.3 - 6.2 % 04/09/2025 12:44 PM EDT [facility] Basophil % 0.3 0.0 - 1.5 % 04/09/2025 12:44 PM EDT [facility] Immature Grans % 0.2 0.0 - 0.5 % 04/09/2025 12:44 PM EDT [facility] Neutrophils, Absolute 2.98 1.70 - 7.00 10*3/mm3 04/09/2025 12:44 PM EDT [facility] Lymphocytes, Absolute 2.31 0.70 - 3.10 10*3/mm3 04/09/2025 12:44 PM EDT [facility] Monocytes, Absolute 0.42 0.10 - 0.90 10*3/mm3 04/09/2025 12:44 PM EDT [facility] Eosinophils, Absolute 0.23 0.00 - 0.40 10*3/mm3 04/09/2025 12:44 PM EDT [facility] Basophils, Absolute 0.02 0.00 - 0.20 10*3/mm3 04/09/2025 12:44 PM EDT [facility] Immature Grans, Absolute 0.01 0.00 - 0.05 10*3/mm3 04/09/2025 12:44 PM EDT [facility] Blood Port / Unknown 04/09/2025 12 :14 PM EDT 04/09/2025 12:39 PM EDT [facility] - 04/09/2025 12:44 PM EDT No manual differential required per Oncology Lab protocol Rocio Kellogg MD LAB BLOOD ORDERABLES Final Resul t [facility]
[address] [place] [address], documented in this encounter Visit Diagnoses Diagnosis Malignant neoplasm of left breast in female, estrogen receptor positive, unspecified site of breast- Primary Port-A-Cath in place documented in this encounter Administered Medications Inactive Administered Medications - up to 3 most recent administrations Medication Order MAR Action Action Date Dose Rate Site heparin injection 500 Units 500 Units, Intravenous, As Needed, Line Care, Starting on Sat04/09/25 at 1214, Use for Implanted Ports.Indications:Port-A-Cath in place Given 04/09/2025 1:40 PM EDT 500 Units sodium chloride 0.9 % infusion 20 mL/hr, Intravenous, Once, On Sat04/09/25 at 1216, For 1 doseIndications:Malignant neoplasm of left breast in female, estrogen receptor positive, unspecified site of breast New Bag 04/09/2025 12:50 PM EDT 20 mL/hr 20 mL/hr trastuzumab-anns (KANJINTI) 620 mg in sodium chloride 0.9 % 279.5 mL chemo IVPB 620 mg (rounded from 624 mg = 6 mg/kg 104 kg Treatment plan Recorded weight), Intravenous, at 559 mL/hr, Administer over 30 Minutes, Once, On Sat04/09/25 at 1246, For 1 dose, Monitor patient for hypersensitivity and infusion reaction. Do NOT administer with dextrose-containing products. Biosimilar use indication: defaulted medication has been selected by insurance preferred product.Indications:Malignant neoplasm of left breast in female, estrogen receptor positive, unspecified site of breast New Bag 04/09/2025 12:59 PM EDT 620 mg 559 mL/hr documented in this encounter Additional Health Concerns Assessment Noted Time PHQ-2 Depression Total Score: 2 04/07/20 2:53 PM EDT documented as of this encounter Care Teams Radiation Physicist Relationship Specialty Start Date End Date Stephanie Olivera APRN [address] [facility] [address] [place] [address] PCP - General Family Medicine 10/22/24 documented as of this encounter
--- OUTSIDE RECORDS SUMMARY | 2025-05-19 09:28 | XMS_ITS | Clinical Summary ---
Author Organization [facility] Address [address] [place] [address] Care Team Providers Care Surveyor Helper Name Role Phone Stephanie Olivera APRN Primary Care Provid er Allergies Active Allergy Reactions Criticality Noted Date Comments Lisinopril Cough High 01/02/2024 Rosuvastatin Myalgia High 01/02/2024 Medications LORazepam (ATIVAN) 0.5 MG tablet Take 1 tablet by mouth At Night As Needed. Active lidocaine-priloc taya (EMLA) 2.5-2.5 % cream Apply 1 Application topically to the appropriate area as directed As Needed (45-60 minutes prior to port access. Cover with saran/plastic wrap.). 30 g 3 4 Active losartan (COZAAR) 25 MG tablet Take 1 tablet by mouth Daily. 5 Active ibuprofen (ADVIL,MOTRIN) 800 MG tablet Take 1 tablet by mouth 3 times a day. 5 Active tamoxifen (NOLVADEX) 20 MG chemo tablet Take 1 tablet by mouth Daily. 30 tablet 11 5 Active albuterol sulfate HFA 108 (90 Base) MCG/ACT inhalerIndicatio ns:Malignant neoplasm of left breast in female, estrogen receptor positive, unspecified site of breast,Upper respiratory tract infection, unspecified type Inhale 2 puffs Every 4 (Four) Hours As Needed for Wheezing or Shortness of Air. 18 g 5 Active Ozempic, 0.25 or 0.5 MG/DOSE, 2 MG/3ML solution pen-injector Inject 0.5 mg under the skin into the appropriate area as directed 1 (One) Time Per Week. 5 Active venlafaxine XR (EFFEXOR-XR) 75 MG 24 hr capsuleIndicatio ns:Malignant neoplasm of left breast in female, estrogen receptor positive, unspecified site of breast TAKE ONE CAPSULE BY MOUTH EVERY DAY 30 capsule 6 5 Active latanoprost (XALATAN) 0.005 % ophthalmic solution instill 1 drop onto affected eyelid/lashes EVERY DAY Active furosemide (LASIX) 20 MG tabletIndication s:Malignant neoplasm of left breast in female, estrogen receptor positive, unspecified site of breast,Ankle edema, bilateral Take 1 tablet by mouth Daily. For BLE edema 30 tablet 3 Active potassium chloride 10 MEQ CR tablet Take 2 tablets by mouth Daily. Two tablets 60 tablet 3 5 Active Active Problems Problem Noted Date Diagnosed Date Port-A-Cath in place 04/15/2024 Malignant neoplasm of left b reast in female, estrogen receptor positive 04/01/2024 Encounters Date Type Department Care Team Description 04/09/2025 12:04 PM EDT - 04/09/2025 11:59 PM EDT Hospital Encounter [facility] [address] [place] [phone] Rocio Kellogg MD Malignant neoplasm of left breast in female, estrogen receptor positive, unspecified site of breast (Primary Dx); Port-A-Cath in place Discharge Disposition: Home or Self Care 04/09/2025 11:30 AM EDT Office Visit [facility] [address] [phone] Dhara Delaney, JERROD Malignant neoplasm of left breast in female, estrogen receptor positive, unspecified site of breast (Primary Dx) 04/09/2025 Travel 03/18/2025 12:58 PM EDT - 03/18/2025 11:59 PM EDT Hospital Encounter [facility] [address] [place] [phone] Rocio Kellogg MD Malignant neoplasm of left breast in female, estrogen receptor positive, unspecified site of breast (Primary Dx); Port-A-Cath in place Discharge Disposition: Home or Self Care 03/18/2025 Travel 02/25/2025 11:30 AM EDT - 02/25/2025 11:59 PM EDT Hospital Encounter [facility] [address] [facility] [address] [place] [phone] Dhara Delaney, ARMHOLE FELLER HANDSTITCHING MACHINE Malignant neoplasm of left breast in female, estrogen receptor positive, unspecified site of breast (Primary Dx); Port-A-Cath in place Discharge Disposition: Home or Self Care 02/25/2025 11:00 AM EDT Office Visit [facility]EMAT[facility] & [facility] [address] [facility] [address] [place] [address] Rocio Kellogg MD Malignant neoplasm of left breast in female, estrogen receptor positive, unspecified site of breast (Primary Dx); Ankle edema, bilateral 02/25/2025 Travel 02/22/2025 Refill [facility] [address] [facility] [address] [place] [address] Rocio Kellogg MD Malignant neoplasm of left breast in female, estrogen receptor positive, unspecified site of breast 02/18/2025 9:57 AM EDT - 02/18/2025 11:59 PM EDT Hospital Encounter [facility] NONINVASIVE LAB [address] [facility] [address]rd [place] [address] Dhara Delaney, ARMHOLE FELLER HANDSTITCHING MACHINE Malignant neoplasm of left breast in female, estrogen receptor positive, unspecified site of breast; Maintenance chemotherapy Discharge Disposition: Home or Self Care 02/18/2025 Travel from Last 3 Months Immunizations Immunization Administration Dates Next Due Hepatitis A 09/08/2018,03/03/2018 Hepatitis B Adult/Adolescent IM 06/23/2019 Tdap 03/17/2013 Family History Medical History Relation Name Comments Cancer Father Nasopharyngeal cancer and leukemia Uterine cancer Maternal Aunt 40s Colon cancer Maternal Uncle 40s Thyroid cancer Niece Metastatic pa pillary thyroid cancer Breast cancer Paternal Grandmother Lung cancer Sister Ovarian cancer Neg Hx Relation Name Status Comments Father Maternal Aunt Alive Maternal Grandfather Maternal Grandmother Maternal Uncle Niece Alive Paternal Grandfather Paternal Grandmother Sister Alive Social History Tobacco Use Types Packs/Day Years [...] on file Sexual Orientation Not on file Last Filed Vital Signs Vital Sign Reading Time Taken Comments Blood Pressure 130/84 04/09/2025 11:26 AM EDT Pulse 78 04/09/2025 11:26 AM EDT Temperature 36.2 C (97.1 F) 04/09/2025 11:26 AM EDT Respiratory Rate 16 03/18/2025 1:20 PM EDT Oxygen Saturation 99% 04/09/2025 11:26 AM EDT Inhaled Oxygen Concentration - - Weight 102 kg (225 lb) 04/09/2025 11:26 AM EDT Height 165.1 cm (5' 5 ) 04/09/2025 11:26 AM EDT Body Mass Index 37.44 04/09/2025 11:26 AM EDT Plan of Treatment Upcoming Encounters Date Type Department Care Team (Late st Contact Info) Description 07/15/2025 11:15 AM EDT Office Visit [facility]EMAT[facility]Y & ONCOLOGY [address] [facility] [address] [place] [phone] Rocio Kellogg MD [address] [facility] [address] [place] [address] 07/22/2025 9:00 AM EDT Appointment [facility] [address] [facility] [address] [place] [address] 11/17/2025 1:00 PM EST Office Visit [facility] [address] [place] [address] Maria Guadalupe Escamilla MD [address] [place] [address] 11/18/2025 10:00 AM EST Office Visit [facility] [address] [place] [phone] Gissel Blum APRN [address] [place] [address] Health Maintenance Due Date Last Done Comments Annual Gynecologic Pelvic and Breast Exam 1975 COVID-19 Vaccine (#1) 1980 Pneumococcal Vaccine 0-49 (1 of 2 - PCV) 1994 COLOGUARD 2020 COLON CANCER SCREENING 5 YEA R SIGMOIDOSCOPY 2020 COLONOSCOPY [address] CANCER SCREENING 2020 CT COLONOGRAPHY 2020 FECAL OCCULT BLOOD TEST 2020 FIT Testing (1 year) 2020 TDAP/TD VACCINES (2 - Td or Tdap) 03/17/2023 013 ANNUAL PHYSICAL 03/03/2024 HEPATITIS C SCREENING 03/03/2024 PT PLAN OF CARE 06/03/2024 03/05/2024 INFLUENZA VACCINE 07/28/2025 MAMMOGRAM 01/18/2027 01/18/2025, 02/05/2024 Procedures Procedure Name Priority Date/Time Associated Diagnosis Comments CBC AND DIFFERENTIAL Routine 04/09/2025 12:14 PM EDT Malignant neoplasm of left breast in female, estrogen receptor positive, unspecified site of breast CBC WITH AUTO DIFFERENTIAL Routine 04/09/2025 12:14 PM EDT Malignant neoplasm of left breast in female, estrogen receptor positive, unspecified site of breast CBC AND DIFFERENTIAL Routine 03/18/2025 1:24 PM EDT Malignant neoplasm of left breast in female, estrogen receptor positive, unspecified site of breast CBC WITH AUTO DIFFERENTIAL Routine 03/18/2025 1:24 PM EDT Malignant neoplasm of left breast in female, estrogen receptor positive, unspecified site of breast COMPREHENSIVE METABOLIC PANEL Routine 03/18/2025 1:24 PM EDT Malignant neoplasm of left breast in female, estrogen receptor positive, unspecified site of breast CBC AND DIFFERENTIAL Routine 02/25/2025 12:13 PM EDT Malignant neoplasm of left breast in female, estrogen receptor positive, unspecified site of breast CBC WITH AUTO DIFFERENTIAL Routine 02/25/2025 12:13 PM EDT Malignant neoplasm of left breast in female, estrogen receptor positive, unspecified site of breast LIMITED 2D ECHO W/ LIMITED DOPPLER, COLOR FLOW AND STRAIN Routine 02/18/2025 10:57 AM EDT Malignant neoplasm of left breast in female, estrogen receptor positive, unspecified site of breast Maintenance chemotherapy MAMMO DIAGNOSTIC DIGITAL TOMOSYNTHESIS BILATERAL W CAD Routine 01/18/2025 3:37 PM EDT Malignant neoplasm of left breast in female, estrogen receptor positive, unspecified site of breast Abnormal mammogram from Last 3 Months or Most Recently Relevant to Health Maintenance Results * (ABNORMAL) CBC Auto Differential (04/09/2025 12:14 PM EDT) Only the most recent of3 resultswithin the time period is included. WBC 5.97 3.40 - 10.80 10*3/mm3 04/09/2025 12:44 PM EDT [facility] RBC 4.02 3.77 - 5.28 10*6/mm3 04/09/2025 12:44 PM EDT [facility] Hemoglobin 11.8(L) 12.0 - 15.9 g/dL 04/09/2025 12:44 PM EDT [facility] Hematocrit 36.4 34.0 - 46.6 % 04/09/2025 12:44 PM EDT [facility] MCV 90.5 79.0 - 97.0 fL 04/09/2025 12:44 PM EDT [facility] MCH 29.4 26.6 - 33.0 pg 04/09/2025 12:44 PM EDT [facility] MCHC 32.4 31.5 - 35.7 g/dL 04/09/2025 12:44 PM EDT [facility] RDW 12.0(L) 12.3 - 15.4 % 04/09/2025 12:44 PM EDT [facility] RDW-SD 40.2 37.0 - 54.0 fl 04/09/2025 12:44 PM EDT [facility] MPV 9.3 6.0 - 12.0 fL 04/09/2025 12:44 PM EDT [facility] Platelets 221 140 - 450 10*3/mm3 04/09/2025 12:44 PM EDT [facility] Neutrophil % 49.9 42.7 - 76.0 % 04/09/2025 12:44 PM EDT [facility] Lymphocyte % 38.7 19.6 - 45.3 % 04/09/2025 12:44 PM EDT [facility] Monocyte % 7.0 5.0 - 12.0 % 04/09/2025 12:44 PM EDT [facility] Eosinophil % 3.9 0.3 - 6.2 % 04/09/2025 12:44 PM EDT [facility] Basophil % 0.3 0.0 - 1.5 % 04/09/2025 12:44 PM EDT [facility] Immature Grans % 0.2 0.0 - 0.5 % 04/09/2025 12:44 PM EDT [facility] Neutrophils, Absolute 2.98 1.70 - 7.00 10*3/mm3 04/09/2025 12:44 PM EDT [facility] Lymphocytes, Absolute 2.31 0.70 - 3.10 10*3/mm3 04/09/2025 12:44 PM EDT [facility] Monocytes, Absolute 0.42 0.10 - 0.90 10*3/mm3 04/09/2025 12:44 PM EDT [facility] Eosinophils, Absolute 0.23 0.00 - 0.40 10*3/mm3 04/09/2025 12:44 PM EDT [facility] Basophils, Absolute 0.02 0.00 - 0.20 10*3/mm3 04/09/2025 12:44 PM EDT [facility] Immature Grans, Absolute 0.01 0.00 - 0.05 10*3/mm3 04/09/2025 12:44 PM EDT [facility] Blood Port / Unknown 04/09/2025 12 :14 PM EDT 04/09/2025 12:39 PM EDT Narrative [facility] - 04/09/2025 12:44 PM EDT No manual differential required per Oncology Lab protocol Rocio Kellogg MD LAB BLOOD ORDERABLES Final Resul t [facility]
[address] [place] [address], * Comprehensive metabolic panel (03/18/2025 1:24 PM EDT) Glucose 95 65 - 99 mg/dL 03/18/2025 2:26 PM EDT [facility] BUN 10 6 - 20 mg/dL 03/18/2025 2:26 PM EDT [facility] Creatinine 0.72 0.57 - 1.00 mg/dL 03/18/2025 2:26 PM EDT [facility] Sodium 142 136 - 145 mmol/L 03/18/2025 2:26 PM EDT [facility] Potassium 4.0 3.5 - 5.2 mmol/L 03/18/2025 2:26 PM T [facility] Chloride 105 98 - 107 mmol/L 03/18/2025 2:26 PM T [facility] CO2 28.0 22.0 - 29.0 mmol/L 03/18/2025 2:26 PM T [facility] Calcium 8.8 8.6 - 10.5 mg/dL 03/18/2025 2:26 PM EDT [facility] Total Protein 6.1 6.0 - 8.5 g/dL 03/18/2025 2:26 PM T [facility] Albumin 3.7 3.5 - 5.2 g/dL 03/18/2025 2:26 PM [facility] ALT (SGPT) 15 1 - 33 U/L 03/18/2025 2:26 PM T [facility] AST (SGOT) 15 1 - 32 U/L 03/18/2025 2:26 PM [facility] Alkaline Phosphatase 101 39 - 117 U/L 03/18/2025 2:26 PM T [facility] Total Bilirubin 0.2 0.0 - 1.2 mg/dL 03/18/2025 2:26 PM T [facility] Globulin 2.4 gm/dL 03/18/2025 2:26 PM [facility] Comment:Calculated Result A/G Ratio 1.5 g/dL 03/18/2025 2:26 PM T [facility] BUN/Creatinine Ratio 13.9 7.0 - 25.0 03/18/2025 2:26 PM [facility] Anion Gap 9.0 5.0 - 15.0 mmol/L 03/18/2025 2:26 PM [facility] eGFR 102.6 >60.0 mL/min/1.7 3 03/18/2025 2:26 PM [facility] Blood Port / Unknown 03/18/2025 1: 24 PM EDT 03/18/2025 1:52 PM EDT Narrative [facility] - 03/18/2025 2:26 PM EDT GFR Categories in Chronic Kidney Disease (CKD) GFR Category GFR (mL/min/1.73) Interpretation G1 90 or greater Normal or high (1) G2 60-89 Mild decrease (1) G3a 45-59 Mild to moderate decrease G3b 30-44 Moderate to severe decrease G4 15-29 Severe decrease G5 14 or less Kidney failure (1)In the absence of evidence of kidney disease, neither GFR category G1 or G2 fulfill the criteria for CKD. eGFR calculation 2020 CKD-EPI creatinine equation, which does not include race as a factor Rocio Kellogg MD LAB BLOOD ORDERABLES Final Resul t [facility]
[address] [place] [address], * LIMITED 2D ECHO W/ LIMITED DOPPLER, COLOR FLOW AND STRAIN (02/18/2025 10:57 AM EDT) EF(MOD-bp) 58.4 % LVIDd 5.1 cm LVIDs 3.6 cm IVSd 0.80 cm LVPWd 1.00 cm FS 29.4 % IVS/LVPW 0.80 cm ESV(cubed) 46.7 ml LV Sys Vol (BSA corrected) 26.0 cm2 EDV(cubed) 132.7 ml LV Gray Vol (BSA corrected) 55.1 cm2 LV mass(C)d 163.6 grams EDV(MOD-sp2) 124.0 ml EDV(MOD-sp4) 114.0 ml ESV(MOD-sp2) 43.0 ml ESV(MOD-sp4) 53.8 ml SV(MOD-sp2) 81.0 ml SV(MOD-sp4) 60.2 ml SVi(MOD-SP2) 39.2 ml/m2 SVi(MOD-SP4) 29.1 ml/m2 EF(MOD-sp2) 65.3 % EF(MOD-sp4) 52.8 % LV V1 max 133.0 cm/sec LV V1 max PG 7.1 mmHg LV V1 mean PG 3.0 mmHg LV V1 VTI 24.3 cm Ao pk vishal 146.0 cm/sec Ao max PG 8.5 mmHg Ao mean PG 4.0 mmHg Ao V2 VTI 28.7 cm Dimensionless Index 0.85 (DI) MR max vishal 225.0 cm/sec MR max PG 20.3 mmHg PA V2 max 122.0 cm/sec LV GLOBAL STRAIN -18.4 % Anatomical Region Laterality Modality Ultrasound Narrative 02/18/2025 12:15 PM EDT Left ventricular systolic function is normal. Calculated left ventricular EF = 58.4% Normal global longitudinal LV strain (GLS) = -18.4%. Left ventricle strain data was reviewed by the physician and found to be accurate. Normal left ventricular cavity size and wall thickness noted. All left ventricular wall segments contract normally. Compared to TTE from Nov 2024, EF and GLS remain normal. Left Ventricle Left ventricular systolic function is normal. Calculated left ventricular EF = 58.4% Normal global longitudinal LV strain (GLS) = -18.4%. Left ventricle strain data was reviewed by the physician and found to be accurate. Normal left ventricular cavity size and wall thickness noted. All left ventricular wall segments contract normally. Right Ventricle Normal right ventricular cavity size and systolic function noted. Left Atrium Normal left atrial cavity size noted. Right Atrium Normal right atrial cavity size noted. Mitral Valve The mitral valve is normal in structure. Mild mitral valve regurgitation is present. Tricuspid Valve The tricuspid valve is structurally normal with no stenosis present. Trace tricuspid valve regurgitation is present. Aortic Valve The aortic valve is structurally normal with no regurgitation present. Pulmonic Valve The pulmonic valve is structurally normal with no regurgitation present. Pericardium The pericardium is normal. There is no evidence of pericardial effusion. . Greater Vessels The inferior vena cava is normally sized. Normal IVC inspiratory collapse of greater than 50% noted. Study Quality The study is technically adequate for diagnosis. Normal sinus was the predominant rhythm observed during the procedure. Dhara Delaney ARM[employer]LE [employer]LL[employer] HANDSTITCHING MACHINE CV ECHO ORDERABLES Final R esult * Mammo Diagnostic Digital Tomosynthesis Bilateral With CAD (01/18/2025 3:37 PM EDT) Anatomical Region Laterality Modality Breast Bilateral Mammography 01/18/2025 3:27 PM EDT Impressions 01/18/2025 3:34 PM EDT 1. No findings suspicious for malignancy on right mammographic imaging. 2. Presumed postoperative/radiation changes in the left breast on baseline mammographic imaging following breast conservation surgery dated 03/27/2024. RECOMMENDATION: Short interval left mammographic follow-up in 6 months. BI-RADS CATEGORY 3, PROBABLY BENIGN. CAD was utilized. The standard false-negative rate of mammography is between 10% and 25%. Complex patterns or increased breast density will markedly elevate the false-negative rate of mammography. A results letter, in lay terminology, will be given to the patient at the conclusion of the exam. _ PHYSICIAN ORDER DIAGNOSTIC 6 MONTH FOLLOW UP MAMMOGRAM AND/OR BREAST ULTRASOUND. DIAGNOSIS: ABNORMAL MAMMOGRAM 01/18/2025 3:[address] Bozena Ramirez MD on Narrative 01/18/2025 3:34 PM EDT BILATERAL DIAGNOSTIC MAMMOGRAM HISTORY: 49-year-old patient who presents for baseline left mammographic imaging following breast conservation surgery dated 03/27/2024 followed by adjuvant radiation therapy. 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 The surgical margins were uninvolved. Isolated tumor cells were identified and 1 of 2 sentinel lymph nodes with no micrometastatic or macro metastatic disease. The patient is currently due for bilateral mammographic imaging. She has no new breast complaints. TECHNIQUE: Bilateral low dose, full field digital CC and MLO views were obtained with tomosynthesis. COMPARISON: 03/27/2024, 02/05/2024, 01/16/2024, 12/18/2022, 12/12/2021, 09/06/2020, 09/17/2019, 08/27/2019 FINDINGS: The breast tissue is almost entirely fatty in density. RIGHT BREAST The fibroglandular pattern is stable. There are no suspicious masses, worrisome calcifications, areas of architectural distortion, or other secondary signs of malignancy. LEFT BREAST There is a focal asymmetry in the mid aspect of the 12:00 region at the patient's lumpectomy site. This finding is felt to reflect postsurgical/radiation changes. Left mammographic imaging is otherwise stable and unremarkable. No suspicious mammographic findings were noted. Dhara Delaney [employer] HANDSTITCHING MACHINE IM MAMMOGRAPHY ORDERABLES Final Result from Last 3 Months or Most Recently Relevant to Health Maintenance Insurance [facility] PPO U[employer] Care Teams Surveyor Helper Relationship Specialty Start Date End Date Stephanie Olivera APRN [address] [facility] [address] [facility] [place] [id number] PCP - General Family Medicine 10/22/24
--- OUTSIDE RECORDS SUMMARY | 2025-05-19 09:28 | XMS_ITS ---
Author Organization [facility] Address [address] [place] [address] Care Team Providers Care Mine Manager Name Role Phone Joselin Stephanie Tish ELDER Primary Care Provid er Active Problems Problem Noted Date Diagnosed Date Port-A-Cath in place 04/15/2024 Malignant neoplasm of left b reast in female, estrogen receptor positive 04/01/2024 Current Treatment and Therapy Plans OP BREAST Trastuzumab Q21D (without Loading Dose)* Plan Start Date:08/18/2024 Plan Provider:Rocio Kellogg MD Linked Problems Malignant neoplasm of left b reast in female, estrogen receptor positive, unspecified site of breast Treatment Medications No medications scheduled. Other Current Plans OP CENTRAL VENOUS ACCESS DEVICE Access, Care, and Maintenance (CVAD)* Plan Start Date:04/15/2024 Plan Provider:Rocio Kellogg MD Linked Problems Port-A-Cath in place Treatment Medications No medications scheduled. Past Treatment and Therapy Plans ONCOLOGY TREATMENT Plan Name Start Date Discontinue Date Treatment Medications Discontinue Reason Plan Provider Cycles OP BREAST TCH Trastuzumab / DOCEtaxel / CARBOplatin AUC=6 04/15/20 24 07/30/2024 CARBOplatin (PARAPLATIN) chemo IVPB (by AUC)DOCEtaxel (TAXOTERE) chemo IVPBpegfilgrastim (NEULASTA ONPRO) Therapy Complete Rocio Kellogg MD 6 of 6 cycles started
--- OUTSIDE RECORDS SUMMARY | 2025-05-19 09:28 | XMS_ITS | Encounter Summary ---
Author Organization [facility] Address [address] [place] [address] Care Team Providers Care Electronic Components Assembler Name Role Phone JoselinJessicaah Tish ELDER Primary Care Provid er Encounter Details Date Type Department Care Team (Latest Contact Info) Description 04/09/2025 Travel Social History Tobacco Use Types Packs/Day Years [...] Description 07/15/2025 11:15 AM EDT Office Visit [facility] & [facility]OGY [address] [facility] [address] [place] [phone] Rocio Kellogg MD [address] [facility] [address] [place] [address] 07/22/2025 9:00 AM EDT Appointment [facility] [address] [place] [address] 11/17/2025 1:00 PM EST Office Visit [facility] END[facility] [address] [place] [address] Maria Guadalupe Escamilla MD [address] [place] [address] 11/18/2025 10:00 AM EST Office Visit [facility] [address] [place] [phone] Gissel Blum APRN [address] [place] [address] documented as of this encounter Visit Diagnoses Not on filedocumented in this encounter Additional Health Concerns Assessment Noted Time PHQ-2 Depression Total Score: 2 04/07/20 24 2:53 PM EDT documented as of this encounter Care Teams Electronic Components Assembler Relationship Specialty Start Date End Date Stephanie Olivera APRN [address] [facility] [address] [place] [address] PCP - General Family Medicine 10/22/24 documented as of this encounter
[2025-05-19 10:11] LABS: Hematocrit 37.2 % (37.0-47.0); Hemoglobin 12.1 g/dL (12.2-16.2); Immature Granulocytes % 0.2 %; Mean Corpuscular HGB Conc 32.5 g/dL (31.8-35.4); Mean Corpuscular Hemoglobin 29.4 pg (27.0-31.2); Mean Corpuscular Volume 90.3 fl (81-99); Nucleated Red Blood Cells % 0 %; Platelet Count 241 K/mm3 (142-424); Red Blood Count 4.12 M/mm3 (4.20-5.40); Red Cell Distribution Width-SD 39.9 fL; White Blood Count 5.5 K/mm3 (4.8-10.8)
[2025-05-19 10:50] LABS: Albumin Level 3.7 g/dl (3.5-5.0); Chloride 104 mmol/L (98-107); Potassium 4.7 mmoL/L (3.5-5.1); Sodium 138 mmol/L (136-145)
[2025-05-19 10:53] LABS: Alanine Aminotransferase 42 U/L (12-78); Albumin/Globulin Ratio 1.5 (1.1-1.8); Alkaline Phosphatase 88 U/L (38-126); Anion Gap 8.7 mEq/L (5-15); Aspartate Amino Transferase 35 U/L (14-36); Bilirubin,Total 0.7 mg/dl (0.2-1.3); Blood Urea Nitrogen 16 mg/dl (7-17); Calcium 9.3 mg/dl (8.4-10.2); Carbon Dioxide 30 mmol/L (22.0-30.0); Cholesterol 220 mg/dl (140-200); Creatinine,Serum 0.70 mg/dl (0.52-1.04); Estimated Glomerular Filt Rate 89 ml/min (>60); GFR (African American) 108 ML/MIN (>60); Globulin 2.5 g/dL (1.3-3.2); Glucose 101 mg/dl (74-100); HDL Cholesterol 46 mg/dl (40-60); Total Protein,Serum 6.2 g/dl (6.3-8.2); Triglycerides 191 mg/dl (30-150)
[2025-05-19 11:05] LABS: Hemoglobin A1C 5.4 % (4.0-6.0)
[2025-05-19 11:21] LABS: Thyroid Stimulating Hormone 0.07 uIU/mL (0.465-4.68)
[2025-05-19 13:46] LABS: Vitamin B12 479 pg/mL (239-931)
[2025-05-20 11:37] LABS: Free T4 (Free Thyroxine) 1.04 ng/dl (0.78-2.19)
== END 2025-05-19 23:59 | disposition home or self-care (01) ==
LOC: LAB 09:21
PROVIDERS: PCP Nurse Practitioner Family; Visit Provider Nurse Practitioner Family
DX: E78.2 Mixed hyperlipidemia (principal); I10 Essential (primary) hypertension; E04.1 Nontoxic single thyroid nodule; Z00.00 Encounter for general adult medical examination without abnormal findings
CPT/HCPCS: 36415; 80053; 80061; 82607; 83036; 84439; 84443; 85025

== ENCOUNTER 2025-06-11 13:44 | Outpatient (CLI) | payer BC, SELFPAY ==
--- OUTSIDE RECORDS SUMMARY | 2024-08-04 05:40 | XMS_ITS | Encounter Summary ---
[facility] Address [address] [place] [address] Care Team Providers Care Roofer Assistant Name Role Phone Dalila Willoughby Primary Care Provider [phone] Reason for Visit * Auth/Cert (Routine) Specialty Diagnoses / Procedures Referred By Contac t Referred To Contact Diagnoses Malignant neoplasm of unspecified site of left female breast Referral ID Status Reason Start Date Expiration Date Visits Re quested Visits Authorized [id number] 1 1 Encounter Details Date Type Department Care Team (Late st Contact Info) Description 08/04/2024 5:40 AM EDT Hospital Encounter [facility] [address] [phone] Social History Tobacco Use Types [...] Information Value Date Recorded Sex Assigned at Not on file Legal Sex Female 9:46 AM EDT Gender Identity Not on file Sexual Orientation Not on file documented as of this encounter Functional Status documented as of this encounter Plan of Treatment Upcoming Encounters Date Type Department Care Team (Late st Contact Info) Description 07/15/2025 11:15 AM EDT Office Visit [facility] [address] [facility] [address] [place] [phone] Rocio Kellogg MD [address] [facility] [address] [place] [address] 07/22/2025 9:00 AM EDT Appointment [facility] [address] [facility] [address] [place] [address] 11/17/2025 1:00 PM EST Office Visit [facility] ENDOCRIN[facility] [address] [place] [phone] Maria Guadalupe Escamilla MD [address] [place] [address] 11/18/2025 10:00 AM EST Office Visit [facility] [address] [place] [phone] Gissel Blum APRN [address] [place] [address] documented as of this encounter Visit Diagnoses Not on filedocumented in this encounter Additional Health Concerns Assessment Noted Time PHQ-2 Depression Total Score: 2 04/07/20 24 2:53 PM EDT documented as of this encounter Care Teams Roofer Assistant Relationship Specialty Start Date End Date aDlila Willoughby PA [address] [place] [address] PCP - General Physician Crowning Inspector 05/07/23 10/21/24 documented as of this encounter
--- OUTSIDE RECORDS SUMMARY | 2024-11-17 15:37 | XMS_ITS | Encounter Summary ---
Author Organization [facility] Address [address] [place] [address] Care Team Providers Care Wind Instrument Repairer Name Role Phone Stephanie Olivera APRN Primary Care Provid er Reason for Visit * Diagnostic Imaging (Routine) - Closed Specialty Diagnoses / Procedures Referred By Contac t Referred To Contact Radiology Diagnoses Nontoxic multinodular goiter Procedures US Thyroid Maria Guadalupe Escamilla MD [address] [employer] [place] [address] [place] [address] Phone: tel: fax: Referral ID Status Reason Start Date Expiration Date Visits Re quested Visits Authorized [id number] Closed 11/17/2024 11/17/2025 1 1 Encounter Details Date Type Department Care Team (Late st Contact Info) Description 11/17/2024 2:37 PM EST Hospital Encounter [facility] ENDOCRINOLOGY [address] [place] [address] [place] [phone] Social History Tobacco Use Types Packs/Day Years [...] Description 07/15/2025 11:15 AM EDT Office Visit [facility] HEMATOLOGY & ONCOLOGY [address] [facility] [address] [place] [phone] Rocio Kellogg MD [address] [facility] [address] [place] [address] 07/22/2025 9:00 AM EDT Appointment [facility] [address] [facility] [address] [place] [address] 11/17/2025 1:00 PM EST Office Visit [facility] ENDOCRINOLOGY [address] [place] [address] Maria Guadalupe Escamilla MD [address] [place] [address] 11/18/2025 10:00 AM EST Office Visit [facility] [address] [place] [phone] Gissel Blum APRN [address] [place] [address] documented as of this encounter Procedures Procedure [...] documented as of this encounter Care Teams Wind Instrument Repairer Relationship Specialty Start Date End Date Stephanie Olivera APRN [facility] [address] [facility] [address] [place] [address] PCP - General Family Medicine 10/22/24 documented as of this encounter
--- OUTSIDE RECORDS SUMMARY | 2025-06-11 13:47 | XMS_ITS ---
Author Organization [employer] [facility] Address [address] [place] [address] Care Team Providers Care Hobbing Machine Operator Name Role Phone Joselin Stephanie Tish ELDER [...]
--- OUTSIDE RECORDS SUMMARY | 2025-06-11 13:47 | XMS_ITS | Clinical Summary ---
Author Organization [facility] Address [address] [place] [address] Care Team Providers Care Roofing Machine Tender Name Role Phone Stephanie Olivera APRN Primary [...] - 04/09/2025 11:59 PM EDT Hospital Encounter [facility]COL[facility] [address] [place] [phone] Rocio Kellogg MD Malignant neoplasm of left breast in female, estrogen receptor positive, unspecified site of breast (Primary Dx); Port-A-Cath in place Discharge Disposition: Home or Self Care 04/09/2025 11:30 AM EDT Office Visit [facility] HEMATOLOGY & ONCOLOGY [address] [facility] [address] [place] [address] Dhara Delaney, JERROD Malignant neoplasm of left breast in female, estrogen receptor positive, unspecified site of breast (Primary Dx) 04/09/2025 Travel 03/18/2025 12:58 PM EDT - 03/18/2025 11:59 PM EDT Hospital Encounter [facility] OUT[facility]COL[facility]Y [address] [place] [phone] Rocio Kellogg MD Malignant neoplasm of left breast in female, estrogen receptor positive, unspecified site of breast (Primary Dx); Port-A-Cath in place Discharge Disposition: Home or Self Care 03/18/2025 Travel from Last 3 Months Immunizations Immunization [...] Description 07/15/2025 11:15 AM EDT Office Visit [facility] HEMATOLOGY & ONCOLOGY [address] [facility] [address] [place] [address] Rocio Kellogg MD [address] [facility] [address] [place] [address] 07/22/2025 9:00 AM EDT Appointment [facility] [address] [facility] [address] [place] [address] 11/17/2025 1:00 PM EST Office Visit [facility] ENDOCRINOLOGY [address] [place] [address] Maria Guadalupe Escamilla MD [address] [place] [address] 11/18/2025 10:00 AM EST Office Visit [facility] [address] [place] [phone] Gissel Blum APRN [address] [place] [address] Health Maintenance Due Date Last Done Comments Annual Gynecologic Pelvic an d Breast Exam 1975 COVID-19 Vaccine (#1) 1980 [...] 03/05/2024 INFLUENZA VACCINE 07/28/2025 MAMMOGRAM 01/18/2027 01/18/2025, 02/25, 03/09/2024, Additional history exists Procedures Procedure Name Priority Date/Time Associated Diagnosis Comments SCANNED - LABS 05/19/2025 CBC AND DIFFERENTIAL Routine 04/09/2025 12:14 PM [...] estrogen receptor positive, unspecified site of breast MAMMO DIAGNOSTIC DIGITAL TOMOSYNTHESIS BILATERAL W CAD Routine 01/18/2025 3:37 PM EDT Malignant neoplasm of left breast in female, estrogen receptor positive, unspecified site of breast Abnormal mammogram from Last 3 Months or Most Recently Relevant to Health Maintenance Results * LABS SCANNED (05/19/2025) Stephanie Olivera APRN LAB BLOOD ORDERABLES Final Result * (ABNORMAL) CBC Auto Differential (04/09/2025 12:14 PM EDT) Only the most recent of2 resultswithin the time period is included. WBC 5.97 3.40 - 10.80 10*3/mm3 04/09/2025 12:44 PM EDT [facility] RBC 4.02 3.77 - 5.28 10*6/mm3 04/09/2025 12:44 PM EDT [facility] Hemoglobin 11.8(L) 12.0 - 15.9 g/dL 04/09/2025 12:44 PM EDT [facility] Hematocrit 36.4 34.0 - 46.6 % 04/09/2025 12:44 PM EDT [facility] MCV 90.5 79.0 - 97.0 fL 04/09/2025 12:44 PM EDT [facility] MCH 29.4 26.6 - 33.0 pg 04/09/2025 12:44 PM EDT [facility] MCHC 32.4 31.5 - 35.7 g/dL 04/09/2025 12:44 PM EDT [facility] RDW 12.0(L) 12.3 - 15.4 % 04/09/2025 12:44 PM EDT [facility] RDW-SD 40.2 37.0 - 54.0 fl 04/09/2025 12:44 PM EDT [facility] MPV 9.3 6.0 - 12.0 fL 04/09/2025 12:44 PM EDT [facility] Platelets 221 140 - 450 10*3/mm3 04/09/2025 12:44 PM EDT [facility] Neutrophil % 49.9 42.7 - 76.0 % 04/09/2025 12:44 PM EDT [facility] Lymphocyte % 38.7 19.6 - 45.3 % 04/09/2025 12:44 PM EDT [facility] Monocyte % 7.0 5.0 - 12.0 % 04/09/2025 12:44 PM EDT [facility] Eosinophil % 3.9 0.3 - 6.2 % 04/09/2025 12:44 PM EDT [facility] Basophil % 0.3 0.0 - 1.5 % 04/09/2025 12:44 PM EDT [facility] Immature Grans % 0.2 0.0 - 0.5 % 04/09/2025 12:44 PM EDT [facility] Neutrophils, Absolute 2.98 1.70 - 7.00 10*3/mm3 04/09/2025 12:44 PM EDT [facility] Lymphocytes, Absolute 2.31 0.70 - 3.10 10*3/mm3 04/09/2025 12:44 PM EDT [facility] Monocytes, Absolute 0.42 0.10 - 0.90 10*3/mm3 04/09/2025 12:44 PM EDT [facility] Eosinophils, Absolute 0.23 0.00 - 0.40 10*3/mm3 04/09/2025 12:44 PM EDT [facility] Basophils, Absolute 0.02 0.00 - 0.20 10*3/mm3 04/09/2025 12:44 PM EDT [facility] Immature Grans, Absolute 0.01 0.00 - 0.05 10*3/mm3 04/09/2025 12:44 PM EDT [facility] Blood Port / Unknown 04/09/2025 12 :14 PM EDT 04/09/2025 12:39 PM EDT Narrative [facility] - 04/09/2025 12:44 PM EDT No manual differential required per Oncology Lab protocol us Rocio Kellogg MD LAB BLOOD ORDERABLES Final Resul t [facility]
[address] [place] [address], * Comprehensive metabolic panel (03/18/2025 1:24 PM EDT) Glucose 95 65 - 99 mg/dL 03/18/2025 2:26 PM EDT [facility] BUN 10 6 - 20 mg/dL 03/18/2025 2:26 PM EDT [facility] Creatinine 0.72 0.57 - 1.00 mg/dL 03/18/2025 2:26 PM EDT [facility] Sodium 142 136 - 145 mmol/L 03/18/2025 2:26 PM EDT [facility] Potassium 4.0 3.5 - 5.2 mmol/L 03/18/2025 2:26 PM EDT [facility] Chloride 105 98 - 107 mmol/L 03/18/2025 2:26 PM EDT [facility] CO2 28.0 22.0 - 29.0 mmol/L 03/18/2025 2:26 PM EDT [facility] Calcium 8.8 8.6 - 10.5 mg/dL 03/18/2025 2:26 PM EDT [facility] Total Protein 6.1 6.0 - 8.5 g/dL 03/18/2025 2:26 PM EDT [facility] Albumin 3.7 3.5 - 5.2 g/dL 03/18/2025 2:26 PM [facility] ALT (SGPT) 15 1 - 33 U/L 03/18/2025 2:26 PM [facility] AST (SGOT) 15 1 - 32 U/L 03/18/2025 2:26 PM EDT [facility] Alkaline Phosphatase 101 39 - 117 U/L 03/18/2025 2:26 PM T [facility] Total Bilirubin 0.2 0.0 - 1.2 mg/dL 03/18/2025 2:26 PM EDT [facility] Globulin 2.4 gm/dL 03/18/2025 2:26 PM T [facility] Comment:Calculated Result A/G Ratio 1.5 g/dL 03/18/2025 2:26 PM T [facility] BUN/Creatinine Ratio 13.9 7.0 - 25.0 03/18/2025 2:26 PM EDT [facility] Anion Gap 9.0 5.0 - 15.0 mmol/L 03/18/2025 2:26 PM EDT [facility] eGFR 102.6 >60.0 mL/min/1.7 3 03/18/2025 2:26 PM EDT [facility] Blood Port / Unknown 03/18/2025 1: 24 PM EDT 03/18/2025 1:52 PM EDT Narrative [facility] - 03/18/2025 2:26 PM EDT [...] MD LAB BLOOD ORDERABLES Final Resul t [facility]
[address] [place] [address], * Mammo Diagnostic Digital Tomosynthesis Bilateral With [...] suspicious mammographic findings were noted. Dhara Delaney APRN IMG MAMMOGRAPHY ORDERABLES Final Result from Last 3 Months or Most Recently Relevant to Health Maintenance Insurance [facility] PPO U[employer] Care Teams Roofing Machine Tender Relationship Specialty Start Date End Date Stephanie Olivera APRN [address] [facility] [address] [facility] [place] [id number] PCP - General Family Medicine 10/22/24
[2025-06-11 13:58] LABS: Microscopic, Urine URINE MICROSCOPIC (MICROSCOPIC)
[2025-06-11 14:12] LABS: Bilirubin,Urine Negative (Negative); Color,Urine YELLOW (Yellow); Glucose,Urine (UA) Negative (Negative); Ketones,Urine Negative (Negative); Leukocyte Esterase,Urine Negative (Negative); PH,Urine 6.5 (5.0-8.5); Protein,Urine Negative (Negative); Specific Gravity, Urine 1.010 (1.005-1.030); Urobilinogen,Urine 0.2 EU/dl (0.2)
[2025-06-11 16:03] LABS: Bacteria,Urine 1+ /lpf
== END 2025-06-11 23:59 | disposition home or self-care (01) ==
LOC: LAB 13:45
PROVIDERS: PCP Nurse Practitioner Family; Visit Provider Nurse Practitioner Family
DX: R30.0 Dysuria (principal)
CPT/HCPCS: 81001; 87086

== ENCOUNTER → 2025-07-28 06:35 | Outpatient (CLI) | payer BC, SELFPAY ==
--- OUTSIDE RECORDS SUMMARY | 2024-08-04 05:40 | XMS_ITS | Encounter Summary ---
[facility] [address] [place] [address] Care Team Providers Care Marine Pilot Name Role Phone Dalila Willoughby Primary Care Provider [phone] Reason for Visit * Auth/Cert (Routine) Specialty Diagnoses / Procedures Referred By Contac t Referred To Contact Diagnoses Malignant neoplasm of unspecified site of left female breast Referral ID Status Reason Start Date Expiration Date Visits Re quested Visits Authorized [id number] 1 1 Encounter Details Date Type Department Care Team (Late st Contact Info) Description 08/04/2024 5:40 AM EDT Hospital Encounter [facility] [address] [address] Social History Tobacco Use Types [...] on file documented as of this encounter Functional Status documented as of this encounter Plan of Treatment Upcoming Encounters Date Type Department Care Team (Late st Contact Info) Description 07/28/2025 9:00 AM EDT Office Visit [facility] [address] [facility] [address] [place] [phone] Frandy Menendez MD [address] [facility] [address] [place] [address] 10/15/2025 11:00 AM EST Office Visit [facility] HEMATOLOGY & ONCOLOGY [address] [facility] [address] [place] [phone] Dhara Delaney, RELISH BLENDER [address] [facility] [address] [place] [address] 11/17/2025 1:00 PM EST Office Visit [facility] ENDOCRINOLOGY [address] [place] [phone] Maria Guadalupe Escamilla MD [address] [place] [address] 11/18/2025 10:00 AM EST Office Visit [facility] [address] [place] [phone] Gissel Blum, RELISH BLENDER [address] [place] [address] 02/03/2026 10:00 AM EDT Office Visit [facility] ENDOCR[facility] [address] [place] [phone] Maria Guadalupe Escamilla MD [address] [place] [address] documented as of this encounter Visit Diagnoses Not on filedocumented in this encounter Additional Health Concerns Assessment Noted Time PHQ-2 Depression Total Score: 2 04/07/20 24 2:53 PM EDT documented as of this encounter Care Teams Marine Pilot Relationship Specialty Start Date End Date Dalila Willoughby PA [address] [place] [address] PCP - General Physician Interventional Nurse 05/07/23 10/21/24 documented as of this encounter
--- OUTSIDE RECORDS SUMMARY | 2024-11-17 15:37 | XMS_ITS | Encounter Summary ---
Author Organization [facility] Address [address] [place] [address] Care Team Providers Care Chief Accounting Officer Name Role Phone Stephanie Olivera APRN Primary Care Provid er Reason for Visit * Diagnostic Imaging (Routine) - Closed Specialty Diagnoses / Procedures Referred By Contac t Referred To Contact Radiology Diagnoses Nontoxic multinodular goiter Procedures US Thyroid Maria Guadalupe Escamilla MD [address] [employer] [place] [address] [place] [address] Phone: tel: fax: Referral ID Status Reason Start Date Expiration Date Visits Re quested Visits Authorized [id number] Closed 11/17/2024 11/17/2025 1 1 Encounter Details Date Type Department Care Team (Late st Contact Info) Description 11/17/2024 2:37 PM EST Hospital Encounter [facility] ENDOCRINOLOGY [address] [place] [phone] Social History Tobacco Use Types Packs/Day [...] Description 07/28/2025 9:00 AM EDT Office Visit [facility] GENERAL SURGERY [address]60 [facility] [address] [place] [address] Frandy Menendez MD [address]60 [facility] [address] [place] [address] 10/15/2025 11:00 AM EST Office Visit [facility] HEMATOLOGY & ONCOLOGY 1700 [facility] [address] [place] [address] Dhara Delaney, CLIENT SERVICES ACCOUNT MANAGER [address] [facility] [address] [place] [address] 11/17/2025 1:00 PM EST Office Visit [facility] ENDOCRINOLOGY [address] [place] [address] Maria Guadalupe Escamilla MD [address] [facility] [address] [place] [address] 11/18/2025 10:00 AM EST Office Visit [facility] [address] [place] [phone] Gissel Blum, CLIENT SERVICES ACCOUNT MANAGER [address] [place] [address] 02/03/2026 10:00 AM EDT Office Visit [facility] ENDOCRINOLOGY [address] [place] [phone] Maria Guadalupe Escamilla MD 30[address] [facility] [address] [place] [address] documented as of this encounter Procedures Procedure [...] documented as of this encounter Care Teams Chief Accounting Officer Relationship Specialty Start Date End Date Stephanie Olivera APRN 1210 [facility] [address] [place] [address] PCP - General Family Medicine 10/22/24 documented as of this encounter
--- OUTSIDE RECORDS SUMMARY | 2025-07-15 10:45 | XMS_ITS | Encounter Summary ---
Author Organization [facility] Address [address] [place] [phone] Care Team Providers Care Sonography Technologist Name Role Phone Stephanie Olivera APRN Primary Care Provid er Encounter Details Date Type Department Care Team (Late st Contact Info) Description 07/15/2025 10:45 AM EDT Lab [facility] [address] [place] [phone] Malignant neoplasm of left breast in female, [...] 07/28/2025 9:00 AM EDT Office Visit [facility] GENERAL SURGERY [address] [facility] [address] [place] [address] Frandy Menendez MD [address] [facility] 202 [place] [address] 10/15/2025 11:00 AM EST Office Visit [facility] HEMATOLOGY & ONCOLOGY [address] [facility] [address] [place] [address] Dhara Delaney, SPEECH AND HEARING DIRECTOR [address] [facility] [address] [place] [address] 11/17/2025 1:00 PM EST Office Visit [facility] ENDOCRINOLOGY [address] [place] [phone] Maria Guadalupe Escamilla MD [address] [place] [address] 11/18/2025 10:00 AM EST Office Visit [facility] [address] [place] [address] Gissel Blum, SPEECH AND HEARING DIRECTOR [address] [place] [address] 02/03/2026 10:00 AM EDT Office Visit [facility] ENDOCRINOLOGY [address] [place] [phone] Maria Guadalupe Escamilla MD [address] [place] [address] documented as of this encounter Procedures Procedure [...] CBC Auto Differential (07/15/2025 10:46 AM EDT) Pathologist [facility] WBC 7.13 3.40 - 10.80 10*3/mm3 07/15/2025 10:48 AM EDT [facility] RBC 4.53 3.77 - 5.28 10*6/mm3 07/15/2025 10:48 AM EDT [facility] Hemoglobin 13.2 12.0 - 15.9 g/dL 07/15/2025 10:48 AM EDT [facility] Hematocrit 41.1 34.0 - 46.6 % 07/15/2025 10:48 AM EDT [facility] MCV 90.7 79.0 - 97.0 fL 07/15/2025 10:48 AM EDT [facility] MCH 29.1 26.6 - 33.0 pg 07/15/2025 10:48 AM EDT [facility] MCHC 32.1 31.5 - 35.7 g/dL 07/15/2025 10:48 AM EDT [facility] RDW 12.2(L) 12.3 - 15.4 % 07/15/2025 10:48 AM EDT [facility] RDW-SD 41.3 37.0 - 54.0 fl 07/15/2025 10:48 AM EDT [facility] MPV 9.4 6.0 - 12.0 fL 07/15/2025 10:48 AM EDT [facility] Platelets 271 140 - 450 10*3/mm3 07/15/2025 10:48 AM EDT [facility] Neutrophil % 54.9 42.7 - 76.0 % 07/15/2025 10:48 AM EDT [facility] Lymphocyte % 35.5 19.6 - 45.3 % 07/15/2025 10:48 AM EDT [facility] Monocyte % 6.5 5.0 - 12.0 % 07/15/2025 10:48 AM EDT [facility] Eosinophil % 2.9 0.3 - 6.2 % 07/15/2025 10:48 AM EDT [facility] Basophil % 0.1 0.0 - 1.5 % 07/15/2025 10:48 AM EDT [facility] Immature Grans % 0.1 0.0 - 0.5 % 07/15/2025 10:48 AM EDT [facility] Neutrophils, Absolute 3.91 1.70 - 7.00 10*3/mm3 07/15/2025 10:48 AM EDT [facility] Lymphocytes, Absolute 2.53 0.70 - 3.10 10*3/mm3 07/15/2025 10:48 AM EDT [facility] Monocytes, Absolute 0.46 0.10 - 0.90 10*3/mm3 07/15/2025 10:48 AM EDT [facility] Eosinophils, Absolute 0.21 0.00 - 0.40 10*3/mm3 07/15/2025 10:48 AM EDT [facility] Basophils, Absolute 0.01 0.00 - 0.20 10*3/mm3 07/15/2025 10:48 AM EDT [facility] Immature Grans, Absolute 0.01 0.00 - 0.05 10*3/mm3 07/15/2025 10:48 AM T [facility] Blood Venipuncture / Unknown 07/15/2025 10:46 AM EDT 07/15/2025 10:46 AM EDT Dhara Delaney SPEECH AND HEARING DIRECTOR LAB BLOOD ORDERABLES Final Result [facility]
[address] [place] [address], * Comprehensive Metabolic Panel (07/15/2025 10:46 AM EDT) Glucose 87 65 - 99 mg/dL 07/15/2025 11:31 AM EDT [facility] BUN 13.4 6.0 - 20.0 mg/dL 07/15/2025 11:31 AM EDT [facility] Creatinine 0.83 0.57 - 1.00 mg/dL 07/15/2025 11:31 AM EDT [facility] Sodium 138 136 - 145 mmol/L 07/15/2025 11:31 AM EDT [facility] Potassium 3.6 3.5 - 5.2 mmol/L 07/15/2025 11:31 AM EDT [facility] Comment:Slight hemolysis det ected by analyzer. Result may be falsely elevated. Chloride 102 98 - 107 mmol/L 07/15/2025 11:31 AM EDT [facility] CO2 26.0 22.0 - 29.0 mmol/L 07/15/2025 11:31 AM EDT [facility] Calcium 8.9 8.6 - 10.5 mg/dL 07/15/2025 11:31 AM EDT [facility] Total Protein 6.6 6.0 - 8.5 g/dL 07/15/2025 11:31 AM EDT [facility] Albumin 4.1 3.5 - 5.2 g/dL 07/15/2025 11:31 AM EDT [facility] ALT (SGPT) 25 1 - 33 U/L 07/15/2025 11:31 AM EDT [facility] AST (SGOT) 21 1 - 32 U/L 07/15/2025 11:31 AM EDT [facility] Alkaline Phosphatase 107 39 - 117 U/L 07/15/2025 11:31 AM EDT [facility] Total Bilirubin 0.3 0.0 - 1.2 mg/dL 07/15/2025 11:31 AM EDT [facility] Globulin 2.5 gm/dL 07/15/2025 11:31 AM EDT [facility] Comment:Calculated Result A/G Ratio 1.6 g/dL 07/15/2025 11:31 AM EDT [facility] BUN/Creatinine Ratio 16.1 7.0 - 25.0 07/15/2025 11:31 AM EDT [facility] Anion Gap 10.0 5.0 - 15.0 mmol/L 07/15/2025 11:31 AM EDT [facility] eGFR 86.5 >60.0 mL/min/1.7 3 07/15/2025 11:31 AM EDT [facility] Blood Venipuncture / Unknown 07/15/2025 10:46 AM EDT 07/15/2025 10:46 AM EDT Narrative [facility] - 07/15/2025 11:31 AM EDT [...] does not include race as a factor hDara Delaney APRN LAB BLOOD ORDERABLES Final Result [facility]
[id number] [place] [address], documented in this encounter Visit Diagnoses Diagnosis Malignant neoplasm of left breast in female, estrogen receptor positive, unspecified site of breast documented in this encounter Additional Health Concerns Assessment Noted Time PHQ-2 Depression Total Score: 2 04/07/20 24 2:53 PM EDT documented as of this encounter Care Teams Sonography Technologist Relationship Specialty Start Date End Date Stephanie Olivera APRN [address] [place] [address] [place] [id number] PCP - General Family Medicine 10/22/24 documented as of this encounter
--- OUTSIDE RECORDS SUMMARY | 2025-07-15 11:15 | XMS_ITS | Encounter Summary ---
[facility] Address [address] [place] [id number] Care Team Providers Care Jerker Name Role Phone Joselin Stephanie Tish ELDER Primary Care Provid er Encounter Details Date Type Department Care Team (Late st Contact Info) Description 07/15/2025 11:15 AM EDT Office Visit [facility] HEMATOLOGY & ONCOLOGY [address] [phone] Rocio Kellogg MD [address]00 [place] [address] Malignant neoplasm of left breast in female, [...] Sign Reading Time Taken Comments Blood Pressure 134/90 07/15/2025 11:16 AM EDT Pulse 96 07/15/2025 11:16 AM EDT Temperature 36.3 C (97.3 F) 07/15/2025 11:16 AM EDT Respiratory Rate 18 07/15/2025 11:16 AM EDT Oxygen Saturation 98% 07/15/2025 11:16 AM EDT Inhaled Oxygen Concentration - - Weight 105 kg (232 lb 4.8 oz) 07/15/2025 11:16 A M EDT Height 165.1 cm (5' 5 ) 07/15/2025 11:16 AM EDT Body Mass Index 38.66 07/15/2025 11:16 AM EDT documented in this encounter Progress Notes * Rocio Kellogg MD - 07/15/2025 11:15 AM EDT PROBLEM LIST: pT1cN0(i+)M0 ER positive (100%, 3+) IL positive (>95%, 3+) HER2 positive (2+, positive [...] ILLNESS: Martha Gregory returns for follow-up. She continues on tamoxifen. She says she has had some increased anxiety. She is now working part-time. She has had some urinary symptoms including urgency. She was checked for UTI but the culture was negative. Objective BP 134/90 Pulse 96 Temp 97.3 ??F (36.3 ??C) (Temporal) Resp 18 Ht 165.1 cm (65 ) Wt 105 kg (232 lb 4.8 oz) SpO2 98% BMI 38.66 kg/m?? Vitals: 07/15/25 1116 PainSc: 2 ECOG score: 0 General: well appearing female in no acute distress Neuro: alert and oriented HEENT: sclera anicteric, oropharynx clear Lungs: clear bilaterally Skin: no rashes, lesions, bruising, or petechiae Psych: mood and affect appropriate RECENT LABS: Lab Results Component Value Date WBC 7.13 07/15/2025 HGB 13.2 07/15/2025 HCT 41.1 07/15/2025 MCV 90.7 07/15/2025 PLT 271 07/15/2025 Lab Results Component Value Date GLUCOSE 87 07/15/2025 BUN 13.4 07/15/2025 CREATININE 0.83 07/15/2025 BCR 16.1 07/15/2025 K 3.6 07/15/2025 CO2 26.0 07/15/2025 CALCIUM 8.9 07/15/2025 ALBUMIN 4.1 07/15/2025 AST 21 07/15/2025 ALT 25 07/15/2025 ASSESSMENT AND PLAN: Martha Gregory is a 49 y.o. 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 Tamoxifen was started 12/03/2024. She does have some generalized joint pain related to the tamoxifen.We will plan to continue the tamoxifen for minimum of 5 years. Bilateral diagnostic mammogram on 01/18/2025 was category 3. She has a follow-up mammogram scheduledfor next week. Hot flashes/anxiety: Continue Effexor. She would like to try increasing the dose to 150 mg. I sent a prescription for this. Urinary symptoms: She has urgency and irritation, but has not had documented infection. I think shecould benefit from vaginal estrogen cream. Prescription sent to the pharmacy. She can use this twice a week. ICE COMPRESS Study: Neuropathy improved to grade 1. Thyroid nodules: follows with endocrinology. Hyperglycemia: Appointment with endocrinology tomorrow. We discussed that there can be increased insulin resistance associated with menopause/mental changes Chronic venous insufficiency: followed by vascular surgeon Dr. Bang Barkley at [facility]. Follow-up in 3 months with labs. I spent 32 minutes caring for Martha on this date of service. This time includes time spent by me in the following activities: preparing for the visit, reviewing tests, performing a medically appropriate examination and/or evaluation, counseling and educating the patient/family/caregiver, referring and communicating with other health resident care manager rn, documenting information in the medical record, independently interpreting results and communicating that information with the patient/family/caregiver, ordering medications, and ordering test(s) Rocio Kellogg MD [facility] Hematology and Oncology 07/15/2025 CC: documented in this encounter Plan of Treatment Upcoming Encounters Date Type Department Care Team (Late st Contact Info) Description 07/28/2025 9:00 AM EDT Office Visit [facility] GENERAL SURGERY [address] [facility] [address] [place] [address] Frandy Menendez MD 1760 [facility] 202 [place] [address] 10/15/2025 11:00 AM EST Office Visit [facility] HEMATOLOGY & ONCOLOGY [address] [facility] [address] [place] [address] Dhara Delaney, ALTERATION WORKER 17[address] [facility] [address] [place] [address] 11/17/2025 1:00 PM EST Office Visit [facility] ENDOCRINOLOGY [address] [place] [address] Maria Guadalupe Escamilla MD [address] [place] [address] 11/18/2025 10:00 AM EST Office Visit [facility] 1700 [place] [address] Gissel Blum, ALTERATION WORKER 17[address] [place] [address] 02/03/2026 10:00 AM EDT Office Visit [facility] ENDOCRINOLOGY [address] [place] [address] Maria Guadalupe Escamilla MD [address] [facility] [address] [place] [address] Scheduled Orders Name Type Priority Associated Diagnoses Orde r Schedule CBC & Differential Lab Panel Routine Malignant neoplasm of left breast in female, estrogen receptor positive, unspecified site of breast Expected: 10/14/2025, Expires: 07/15/2026 Comprehensive Metabolic Panel Lab Routine Malignant neoplasm of left breast in female, estrogen receptor positive, unspecified site of breast Expected: 10/14/2025, Expires: 07/15/2026 documented as of this encounter Visit Diagnoses Diagnosis Malignant neoplasm of left breast in female, estrogen receptor positive, unspecified site of breast documented in this encounter Additional Health Concerns Assessment Noted Time PHQ-2 Depression Total Score: 2 04/07/20 24 2:53 PM EDT documented as of this encounter Care Teams Jerker Relationship Specialty Start Date End Date Stephanie Olivera APRN [facility] [address] [facility] [address] [place] [address] PCP - General Family Medicine 10/22/24 documented as of this encounter
--- OUTSIDE RECORDS SUMMARY | 2025-07-16 08:15 | XMS_ITS | Encounter Summary ---
Author Organization [facility] Address [address] [place] [address] Care Team Providers Care Rn Complex Care Name Role Phone Stephanie Olivera APRN Primary Care Provid er Reason for Visit * Reason Comments Nontoxic multinodular goiter Follow up Pre-diabetes Sugar has been spiki ngPCP gave dexcom Encounter Details Date Type Department Care Team (Late st Contact Info) Description 07/16/2025 8:15 AM EDT Office Visit [facility]CRINOLOGY [address] [facility] [address] [place] [address] Maria Guadalupe Escamilla MD [address] [place], [place] [id number] Controlled type 2 diabetes mellitus without complication, without long-term current use of insulin (Primary Dx); Nontoxic multinodular goiter; Hypoglycemia Social History Tobacco Use Types Packs/Day Years [...] Sign Reading Time Taken Comments Blood Pressure 111/64 07/16/2025 8:03 AM EDT Pulse 92 07/16/2025 8:03 AM EDT Temperature - - Respiratory Rate - - Oxygen Saturation 98% 07/16/2025 8:03 AM EDT Inhaled Oxygen Concentration - - Weight 106 kg (234 lb) 07/16/2025 8:03 AM EDT Height 165.1 cm (5' 5 ) 07/16/2025 8:03 AM EDT Body Mass Index 38.94 07/16/2025 8:03 AM EDT documented in this encounter Progress Notes * Maria Guadalupe Escamilla MD - 07/16/2025 8:15 AM EDT Images from the original note were not included. Nontoxic multinodular goiter (Follow up) and Pre-diabetes (Sugar has been spiking/PCP gave dexcom) Subjective Martha Gregory is a 49 y.o. female. she is being seen for follow-up Thyroid nodules dx in 2020. Patient has a positive FH of metastatic papillary thyroid cancer, she has started with u/s screening in 2020. Ultrasound revealed 3-4 mm small nodules. Yearly u/s reports reviewed. The largest nodule measures 5 mm. Abnormal thyroid function test - took [employer] thyroid for a year for abnormal free thyroxine index(back in 2022). No change in sx and she stopped it. She has hx of breast cancer, s/p surgery, XRT and on immunotherapy now. Patient presented to the visit after developing hyperglycemia 2-3 weeks ago. She reported episodes of blurry vision and shaky spells when the glucose drops to 88. She had tested during blurry vision episode and glucose was 200 on several occasions. She has started using sensor and we have reviewed the labs. She has postprandial glucose excursions to 200 with quick change to 80. In the past she has tried metformin and discontinued due to GI side effects. Semaglutide caused severe constipation. Patient started watching the diet and glucose. She does not drink sodas or juices. She has a strongfamily history of diabetes. She has gained some weight after starting tamoxifen Medications: Current Outpatient Medications: albuterol sulfate HFA 108 (90 Base) MCG/ACT inhaler, Inhale 2 puffs Every 4 (Four) Hours As Needed for Wheezing or Shortness of Air., Disp: 18 g, Rfl: 0 Continuous Glucose Sensor (Dexcom G7 Sensor[place] [facility] [place] Use 1 each Every 10 (Ten) Days., Disp: 3 each, Rfl: 11 estradiol (ESTRACE VAGINAL) 0.1 MG/GM vaginal cream, Insert 1 g into the vagina 2 (Two) Times a Week., Disp: 42.5 g, Rfl: 12 ibuprofen (ADVIL,MOTRIN) 800 MG tablet, Take 1 tablet by mouth 3 times a day., Disp: , Rfl: losartan (COZAAR) 25 MG tablet, Take 1 tablet by mouth Daily., Disp: , Rfl: tamoxifen (NOLVADEX) 20 MG chemo tablet, Take 1 tablet by mouth Daily., Disp: 30 tablet, Rfl: 11 venlafaxine XR (EFFEXOR-XR) 150 MG 24 hr capsule, Take 1 capsule by mouth Daily., Disp: 30 capsule,Rfl: 5 Tirzepatide (MOUNJARO) 2.5 MG/0.5ML solution auto-injector, Inject 2.5 mg under the skin into the appropriate area as directed 1 (One) Time Per Week., Disp: 2 mL, Rfl: 0 Review of Systems Constitutional: Positive for diaphoresis, fatigue and unexpected weight gain. Gastrointestinal: Positive for constipation. Endocrine: Positive for heat intolerance and polydipsia. Musculoskeletal: Positive for arthralgias, back pain, joint swelling and myalgias. Skin: Positive for rash. Objective Vitals: 07/16/25 0803 BP: 111/64 BP Location: Right arm Patient Position: Sitting Cuff Size: Adult Pulse: 92 SpO2: 98% Weight: 106 kg (234 lb) Height: 165.1 cm (65 ) Body mass index is 38.94 kg/m??. Physical Exam Vitals reviewed. Constitutional: Appearance: Normal appearance. She is obese. Cardiovascular: Rate and Rhythm: Normal rate and regular rhythm. Pulses: Normal pulses. Heart sounds: Normal heart sounds. Pulmonary: Effort: Pulmonary effort is normal. Breath sounds: Normal breath sounds. Musculoskeletal: General: Swelling (1+) present. Neurological: Mental Status: She is alert and oriented to person, place, and time. Psychiatric: Mood and Affect: Mood normal. Thought Content: Thought content normal. Results for orders placed or performed in visit on 07/16/25 POC Glycosylated Hemoglobin (Hb A1C) Collection Time: 07/16/25 8:14 AM Specimen: Blood Result Value Ref Range Hemoglobin A1C 5.7 4.5 - 5.7 % Lot Number [id number] Expiration Date 01/28/2027 POC Glucose, Blood Collection Time: 07/16/25 8:14 AM Specimen: Blood Result Value Ref Range Glucose 125 70 - 130 mg/dL Lot Number [id number] Expiration Date 12/18/2025 Thyroid ultrasound 11/17/24 Real time high resolution imaging of the thyroid gland was performed in transverse and longitudinalplanes. The right lobe measured 4.28 cm L x 1.18 cm AP x 1.32 cm in TV dimension. The isthmus measured 0.38 cm in thickness. The left thyroid lobe measured 4.44 cm L x 1.02 cm AP x 1.02 cm in TV dimension. Thyroid gland is homogeneous and contains multiple small nodules. Most of the nodules are less than6 mm in size Nodule 1 is located in the right lower lobe and measures 0.59 x 0.34 x 0.43 cm (L X AP X TV). This nodule issolid, homogeneous, hypoechoic with well-defined margins, and Grade II vascularity on Color Flow Doppler. It has no artifacts Nodule 2 is located in the isthmus and measures 0.35 x 0.26 x 0.38 cm (L X AP X TV). This nodule is solid, homogeneous, hypoechoic with well-defined margins, and Grade II vascularity on Color Flow Doppler. Ithas no artifacts Nodule 3 is located in the left mid lobe and measures 0.52 x 0.3 x 0.4 cm (L X AP X TV). This nodule is solid, homogeneous, hypoechoic with well-defined margins, and Grade I vascularity on Color Flow Doppler.It has no artifacts Nodule 4 is located in the left lower lobe and measures 0.66 x 0.29 x 0.53 cm (L X AP X TV). This nodule is solid, homogeneous, hypoechoic with well-defined margins, and Grade I vascularity on Color Flow Doppler. It has no artifacts No pathologic lymph nodes were seen. Assessment: Small bilateral 5 mm nodules. The appearance has not changed significantly since last ultrasound in 2022 Repeat ultrasound in 12 months Assessment/Plan: Problem List Items Addressed This Visit Endocrine and Metabolic Nontoxic multinodular goiter Other Visit Diagnoses Controlled type 2 diabetes mellitus without complication, without long-term current use of insulin - Primary Relevant Medications Tirzepatide (MOUNJARO) 2.5 MG/0.5ML solution auto-injector Continuous Glucose Sensor (Dexcom G7 Sensor) misc Other Relevant Orders POC Glycosylated Hemoglobin (Hb A1C) (Completed) POC Glucose, Blood (Completed) Hypoglycemia Relevant Medications Tirzepatide (MOUNJARO) 2.5 MG/0.5ML solution auto-injector Continuous Glucose Sensor (Dexcom G7 Sensor) misc The nodules are small, 5-6 mm and they are stable compared to previous study. Repeat u/s every 12-18 months New onset diabetes - she has several episode of glucose over 200 which is diagnostic of diabetes. Christian reviewed diabetes in detail with the patient today. All questions have been answered to her satisfaction. We have discussed the goals of HgbA1C, glucose testing frequency, consistent carbohydrate diet and diabetes complication prevention. Patient was recommended to increase exercise activity and follow ADA recommended diet. The literature with the examples of meal plan was provided to patient and healthy eating instructions reviewed. We have discussed the following concepts: [facility] diabetic complications discussed. , diabetic Sick Day rules reviewed, handout given: maintain increased fluid intake, check glucose frequently and call the office if glucose is >400. If nausea/vomiting occurs, present to the ER. , home glucose monitoring emphasized, carbohydrate counting discussed in detail, written exchange diet given, patient was recommended to increase exercise activity to at least 30 minutes 5 days per week., all medications, side effects and compliance discussed carefully, teaching on subcutaneous self injection and use of pen provided, Hypoglycemia management and prevention reviewed., and Dietary recommendations ex plained and examples of healthy meals provided Start Mounjaro 2.5 mg weekly. She has tried metformin and Ozempic in the past and developed severe diarrhea with the first medication and constipation with Ozempic. CGM downloaded and reviewed: Patient is 94% in range with 6% hyperglycemia. She has postprandial excursion to 200, improved after dietary modifications were made. Her symptoms occurred during glucosefluctuation from 180 -200 to 80 postprandially. Return in about 4 months (around 11/15/2025). documented in this encounter Plan of Treatment Upcoming Encounters Date Type Department Care Team (Late st Contact Info) Description 07/28/2025 9:00 AM EDT Office Visit [facility] GENERAL SURGERY [address]60 [facility] 202 [place] [phone] Frandy Menendez MD 1760 [facility] 202 [place] [address] 10/15/2025 11:00 AM EST Office Visit [facility] HEMATOLOGY & ONCOLOGY 1700 [facility] [address] [place] [phone] Dhara Delaney, DELIVERY TRUCK DRIVER HEAVY 1700 [facility] [address] [place] [address] 11/17/2025 1:00 PM EST Office Visit [facility] ENDOCRINOLOGY [address] [place] [address] Maria Guadalupe Escamilla MD [address] [place] [address] 11/18/2025 10:00 AM EST Office Visit [facility] 1700 [place] [phone] Gissel Blum, DELIVERY TRUCK DRIVER HEAVY [address] [place] [address] 02/03/2026 10:00 AM EDT Office Visit [facility] ENDOCRINOLOGY [address] [place] [address] Maria Guadalupe Escamilla MD [address] [place] [address] documented as of this encounter Procedures Procedure Name Priority Date/Time Associated Diagnosis Comments POCT GLUCOSE, BLD (NON STRIP) Routine 07/16/2025 8:14 AM EDT Controlled type 2 diabetes mellitus without complication, without long-term current use of insulin POCT GLYCOSYLATED HEMOGLOBIN (HGB A1C) Routine 07/16/2025 8:14 AM EDT Controlled type 2 diabetes mellitus without complication, without long-term current use of insulin documented in this encounter Results * POC Glucose, Blood (07/16/2025 8:14 AM EDT) Glucose 125 70 - 130 mg/dL Lot Number [id number] Expiration Date 12/18/2025 Blood 07/16/2025 8:14 AM EDT Maria Guadalupe Box MD POINT OF CARE TEST ORDERABLES Final Result * POC Glycosylated Hemoglobin (Hb A1C) (07/16/2025 8:14 AM EDT) Hemoglobin A1C 5.7 4.5 - 5.7 % [facility] Lot Number [id number] [facility] Expiration Date 01/28/2027 [facility] Blood 07/16/2025 8:14 AM EDT Maria Guadalupe Box MD POINT OF CARE TEST ORDERABLES Final Result [facility]
[address] [place] [address], documented in this encounter Visit Diagnoses Diagnosis Controlled type 2 diabetes mellitus without complication, without long-term current use of insulin- Primary Nontoxic multinodular goiter Hypoglycemia Hypoglycemia, unspecified documented in this encounter Additional Health Concerns Assessment Noted Time PHQ-2 Depression Total Score: 2 04/07/20 24 2:53 PM EDT documented as of this encounter Care Teams Rn Complex Care Relationship Specialty Start Date End Date Stephanie Olivera APRN [address] [place] [facility] [address] [place] [address] PCP - General Family Medicine 10/22/24 documented as of this encounter
--- OUTSIDE RECORDS SUMMARY | 2025-07-22 09:00 | XMS_ITS | Encounter Summary ---
Author Organization [facility] Address [address] [place] [address] Care Team Providers Care Information Clerk Automobile Club Name Role Phone Stephanie Olivera APRN Primary [...] With CAD CHG DIGITAL BREAST TOMOSYNTHESIS BILATERAL IN TOMOSYNTHESIS, MAMMO Frandy Menendez MD [address] [place] [id number] Phone: tel: fax: Referral ID Status Reason Start Date Expiration Date Visits Re quested Visits Authorized [id number] Closed 04/22/2025 06/10/2025 1 1 Encounter Details Date Type Department Care Team (Late st Contact Info) Description 07/22/2025 9:00 AM EDT - 07/22/2025 11:59 PM EDT Hospital Encounter [facility] [address] [place] [address] Frandy Menendez MD 1760 [facility] 202 [place] [address] Malignant neoplasm of overlapping sites of left [...] each Every 10 (Ten) Days. 3 each 07/16/2025 estradiol (ESTRACE VAGINAL) 0.1 MG/GM vaginal cream Insert 1 g into the vagina 2 (Two) Times a Week. 42.5 g 12 07/15/2025 ibuprofen (ADVIL,MOTRIN) 800 MG tablet Take 1 tablet by mouth 3 times a day. 11/02/2024 losartan (COZAAR) 25 MG tablet Take 1 tablet by mouth Daily. 11/02/2024 tamoxifen (NOLVADEX) 20 MG chemo tablet Take 1 tablet by mouth Daily. 30 tablet 11 12/03/2024 Tirzepatide (MOUNJARO) 2.5 MG/0.5ML solution auto-injector Inject 2.5 mg under the skin into the appropriate area as directed 1 (One) Time Per Week. 2 mL 07/16/2025 venlafaxine XR (EFFEXOR-XR) 150 MG 24 hr capsuleIndication s:Malignant neoplasm of left breast in female, estrogen receptor positive, unspecified site of breast Take 1 capsule by mouth Daily. 30 capsule 5 07/15/2025 documented as of this encounter Plan of Treatment Upcoming Encounters Date Type Department Care Team (Late st Contact Info) Description 07/28/2025 9:00 AM EDT Office Visit [facility] GENERAL SURGERY 1760 [facility] 202 [place] [address] Frandy Menendez MD 1760 [facility] 202 [place] [address] 10/15/2025 11:00 AM EST Office Visit [facility] HEMATOLOGY & ONCOLOGY 1700 [facility] [address] [place] [address] Dhara Delaney, SPORTS MEDICINE TRAINER [address]00 [facility] [address] [place] [address] 11/17/2025 1:00 PM EST Office Visit [facility] ENDOCRINOLOGY [address] [facility] 100 [place] [address] Maria Guadalupe Escamilla MD [address] [address] 11/18/2025 10:00 AM EST Office Visit [facility] [address]00 [place] [address] Gissel Blum, SPORTS MEDICINE TRAINER [address] [place] [address] 02/03/2026 10:00 AM EDT Office Visit [facility] ENDOCRINOLOGY [address] [place] [phone] Maria Guadalupe Escamilla MD [address] [address] documented as of this encounter Procedures Procedure [...] the visit. 07/22/2025 12:54 PM by Sara Panda MD on Narrative 07/22/2025 12:54 PM EDT [...] documented as of this encounter Care Teams Information Clerk Automobile Club Relationship Specialty Start Date End Date Stephanie Olivera APRN [facility] [address] [address] PCP - General Family Medicine 10/22/24 documented as of this encounter
--- OUTSIDE RECORDS SUMMARY | 2025-07-28 06:38 | XMS_ITS ---
Author Organization [facility] Address [address] [place] [address] Care Team Providers Care Machine Operator Picker Name Role Phone Joselin Stephanie Tish JERROD Primary Care Provid er Active Problems Problem Noted Date Diagnosed Date Nontoxic multinodular goiter 07/16/2025 Port-A-Cath in place 04/15/2024 Malignant neoplasm of left b reast in female, estrogen receptor positive 04/01/2024 Current Treatment and Therapy Plans OP BREAST Trastuzumab Q21D (without Loading Dose)* Plan Start Date:08/18/2024 Plan Provider:Roico Kellogg MD Linked Problems Malignant neoplasm of [...]
--- OUTSIDE RECORDS SUMMARY | 2025-07-28 06:38 | XMS_ITS | Encounter Summary ---
Author Organization [facility] Address [address] [place] [address] Care Team Providers Care Water Hydrant Installer Name Role Phone Joselin Stephanie Tish ELDER Primary Care Provid er Encounter Details Date Type Department Care Team (Latest Contact Info) Description 07/22/2025 Travel Social History Tobacco Use Types Packs/Day [...] Description 07/28/2025 9:00 AM EDT Office Visit [facility] GENERAL SURGERY 1760 [facility] 202 [place] [address] Frandy Menendez MD 1760 [facility] 202 [place] [address] 10/15/2025 11:00 AM EST Office Visit [facility] HEMATOLOGY & ONCOLOGY 1700 [facility] 1100 [place] [address] Dhara Delaney, BUCKLE STRINGER 1700 [facility] [address] [place] [address] 11/17/2025 1:00 PM EST Office Visit [facility] ENDOCR[facility]OLOGY [address] [place] [phone] Maria Guadalupe Escamilla MD [address] [place] [address] 11/18/2025 10:00 AM EST Office Visit [facility] [address]00 [place] [address] Gissel Blum, BUCKLE STRINGER [address]00 [place] [address] 02/03/2026 10:00 AM EDT Office Visit [facility] ENDOCR[facility]OLOG[facility] [address] [place] [address] Maria Guadalupe Escamilla MD [address] [facility] [address] [address] documented as of this encounter Visit Diagnoses Not on filedocumented in this encounter Additional Health Concerns Assessment Noted Time PHQ-2 Depression Total Score: 2 04/07/20 24 2:53 PM EDT documented as of this encounter Care Teams Water Hydrant Installer Relationship Specialty Start Date End Date Stephanie Olivera BUCKLE STRINGER 1210 [facility] [address] [facility] 2A [place] [address] PCP - General Family Medicine 10/22/24 documented as of this encounter
--- OUTSIDE RECORDS SUMMARY | 2025-07-28 06:38 | XMS_ITS | Encounter Summary ---
Author Organization [facility] Address [address] [place] [address] Care Team Providers Care Overedge Sewer Name Role Phone JoselinJessicaah Tish ELDER Primary Care Provid er Encounter Details Date Type Department Care Team (Latest Contact Info) Description 07/15/2025 Travel Social History Tobacco Use Types Packs/Day [...] Description 07/28/2025 9:00 AM EDT Office Visit [facility] GENERAL SURGERY 1760 [facility] 202 [place] [address] Frandy Menendez MD 1760 [facility] 202 [place] [address] 10/15/2025 11:00 AM EST Office Visit [facility] HEMATOLOGY & ONCOLOGY [address] [facility] [address] [place] [address] Dhara Delaney, MODEL ENGINE MECHANIC [address] [facility] [address] [place] [address] 11/17/2025 1:00 PM EST Office Visit [facility] ENDOCRINOLOGY [address] [place] [address] Maria Guadalupe Escamilla MD [address] [place] [address] 11/18/2025 10:00 AM EST Office Visit [facility] [address]00 [place] [address] Gissel Blum, MODEL ENGINE MECHANIC [address]00 [place] [address] 02/03/2026 10:00 AM EDT Office Visit [facility] ENDOCRINOLOGY [address] [place] [address] Maria Guadalupe Escamilla MD [address] [facility] [address] [address] documented as of this encounter Visit Diagnoses Not on filedocumented in this encounter Additional Health Concerns Assessment Noted Time PHQ-2 Depression Total Score: 2 04/07/20 24 2:53 PM EDT documented as of this encounter Care Teams Overedge Sewer Relationship Specialty Start Date End Date Stephanie Olivera MODEL ENGINE MECHANIC 1210 [facility] [address] [facility] 2A [place] [address] PCP - General Family Medicine 10/22/24 documented as of this encounter
--- OUTSIDE RECORDS SUMMARY | 2025-07-28 06:38 | XMS_ITS | Clinical Summary ---
Author Organization [facility] Address [address] [place] [address] Care Team Providers Care Policy Analyst Name Role Phone Stephanie Olivera APRN Primary Care Provid er Allergies Active Allergy Reactions Criticality Noted Date Comments Lisinopril Cough High 01/02/2024 Rosuvastatin Myalgia High 01/02/2024 Medications losartan (COZAAR) 25 MG tablet Take 1 tablet by mouth Daily. 11/02/19 25 Active ibuprofen (ADVIL,MOTRIN) 800 MG tablet Take 1 tablet by mouth 3 times a day. 11/02/19 25 Active tamoxifen (NOLVADEX) 20 MG chemo tablet Take 1 tablet by mouth Daily. 30 tablet 11 12/03/19 25 Active albuterol sulfate HFA 108 (90 Base) MCG/ACT inhalerIndicati ons:Malignant neoplasm of left breast in female, estrogen receptor positive, unspecified site of breast,Upper respiratory tract infection, unspecified type Inhale 2 puffs Every 4 (Four) Hours As Needed for Wheezing or Shortness of Air. 18 g 12/04/19 25 Active venlafaxine XR (EFFEXOR-XR) 150 MG 24 hr capsuleIndicati ons:Malignant neoplasm of left breast in female, estrogen receptor positive, unspecified site of breast Take 1 capsule by mouth Daily. 30 capsule 5 07/15/20 25 Active estradiol (ESTRACE VAGINAL) 0.1 MG/GM vaginal cream Insert 1 g into the vagina 2 (Two) Times a Week. 42.5 g 12 07/15/20 25 Active Tirzepatide (MOUNJARO) 2.5 MG/0.5ML solution auto-injector Inject 2.5 mg under the skin into the appropriate area as directed 1 (One) Time Per Week. 2 mL 07/16/20 25 Active Continuous Glucose Sensor (Dexcom G7 Sensor) miscIndications :Controlled type 2 diabetes mellitus without complication, without long-term current use of insulin,Hypogly cemia Use 1 each Every 10 (Ten) Days. 3 each 07/16/20 25 Active LORazepam (ATIVAN) 0.5 MG tablet Take 1 tablet by mouth At Night As Needed. 025 Discontinue d(Patient Reported Not Taking) lidocaine-prilo aristeo (EMLA) 2.5-2.5 % cream Apply 1 Application topically to the appropriate area as directed As Needed (45-60 minutes prior to port access. Cover with saran/plastic wrap.). 30 g 3 04/01/20 24 025 Discontinue d(Patient Reported Not Taking) Ozempic, 0.25 or 0.5 MG/DOSE, 2 MG/3ML solution pen-injector Inject 0.5 mg under the skin into the appropriate area as directed 1 (One) Time Per Week. 01/02/20 025 Discontinue d(Patient Reported Not Taking) venlafaxine XR (EFFEXOR-XR) 75 MG 24 hr capsuleIndicati ons:Malignant neoplasm of left breast in female, estrogen receptor positive, unspecified site of breast TAKE ONE CAPSULE BY MOUTH EVERY DAY 30 capsule 6 02/23/20 025 Discontinue d(Reorder) latanoprost (XALATAN) 0.005 % ophthalmic solution instill 1 drop onto affected eyelid/lashes EVERY DAY 02/03/20 25 025 Discontinue d(Patient Reported Not Taking) furosemide (LASIX) 20 MG tabletIndicatio ns:Malignant neoplasm of left breast in female, estrogen receptor positive, unspecified site of breast,Ankle edema, bilateral Take 1 tablet by mouth Daily. For BLE edema 30 tablet 3 02/26/20 25 025 Discontinue d(Patient Reported Not Taking) potassium chloride 10 MEQ CR tablet Take 2 tablets by mouth Daily. Two tablets 60 tablet 3 05/11/16 24 025 Discontinue d(Patient Reported Not Taking) Continuous Glucose Sensor (Dexcom G7 Sensor) misc Use. 025 Discontinue d(Reorder) Active Problems Problem Noted Date Diagnosed Date Nontoxic multinodular goiter 07/16/2025 Port-A-Cath in place 04/15/2024 Malignant neoplasm of left b reast in female, estrogen receptor positive 04/01/2024 Encounters Date Type Department Care Team Description 07/22/2025 9:00 AM EDT - 07/22/2025 11:59 PM EDT Hospital Encounter [facility] [address] [facility] [address] [place] [address] Frandy Menendez MD Malignant neoplasm of overlapping sites of left female breast, unspecified estrogen receptor status Discharge Disposition: Home or Self Care 07/22/2025 Travel 07/16/2025 8:15 AM EDT Office Visit [facility] ENDOCRINOLOGY [address] [facility] [address] [place] [address] Maria Guadalupe Escamilla MD Controlled type 2 diabetes mellitus without complication, without long-term current use of insulin (Primary Dx); Nontoxic multinodular goiter; Hypoglycemia 07/15/2025 11:15 AM EDT Office Visit [facility] HEMATOLOGY & ONCOLOGY [address] [facility] [address] [place] [address] Rocio Kellogg MD Malignant neoplasm of left breast in female, estrogen receptor positive, unspecified site of breast 07/15/2025 10:45 AM EDT Lab [facility] [address] [place] [address] Malignant neoplasm of left breast in female, estrogen receptor positive, unspecified site of breast 07/15/2025 Travel from Last 3 Months Immunizations Immunization Administration Dates Next Due Hepatitis A 09/08/2018,03/03/2018 Hepatitis B Adult/Adolescent IM 06/23/2019 Tdap 03/17/2013 Family History Medical History Relation Name Comments Diabetes Brother An Type 2 diabetes Hypertension Brother An Obesity Brother An Cancer Father Quoc Nasal pharyngea l carcinoma leukaemia Uterine cancer Maternal Aunt 40s Colon cancer Maternal Uncle 1 40s Cancer Maternal Uncle 2 Gene Colon cance r Hypertension Mother Carolina Obesity Mother Carolina Thyroid cancer Niece Metastatic pa pillary thyroid cancer Breast cancer Paternal Grandmother Kailee Cancer Paternal Grandmother Kailee Breast cancer Cancer Sister Sheyla Lung cancer Non small cell Lung cancer Sister Sheyla Obesity Sister Sheyla Ovarian cancer Neg Hx Relation Name Status Comments Brother An Alive Father Quoc Maternal Aunt Alive Maternal Grandfather Maternal Grandmother Maternal Uncle 1 Maternal Uncle 2 Gene Alive Mother Carolina Alive Niece Alive Paternal Grandfather Paternal Grandmother Kailee Sister Sheyla Alive Social History Tobacco Use Types Packs/Day [...] Pulse 92 07/16/2025 8:03 AM EDT Temperature 36.3 C (97.3 F) 07/15/2025 11:16 AM EDT Respiratory Rate 18 07/15/2025 11:16 AM EDT Oxygen Saturation 98% 07/16/2025 8:03 AM EDT Inhaled Oxygen Concentration - - Weight 106 kg (234 lb) 07/16/2025 8:03 AM EDT Height 165.1 cm (5' 5 ) 07/16/2025 8:03 AM EDT Body Mass Index 38.94 07/16/2025 8:03 AM EDT Plan of Treatment Upcoming Encounters Date Type Department Care Team (Late st Contact Info) Description 07/28/2025 9:00 AM EDT Office Visit [facility] GENERAL SURGERY [address] [facility] [address] [place] [phone] Frandy Menendez MD [address] [facility] [address] [place] [address] 10/15/2025 11:00 AM EST Office Visit [facility] HEMATOLOGY & ONCOLOGY [address] [facility] [address] [place] [address] Dhara Delaney, NUMERICAL CONTROL OPERATOR [address] [facility] [address] [place] [address] 11/17/2025 1:00 PM EST Office Visit [facility] ENDOCRIN[facility]Y [address] [place] [phone] Maria Guadalupe Escamilla MD [address] [place] [address] 11/18/2025 10:00 AM EST Office Visit [facility] [address] [place] [phone] Gissel Blum, NUMERICAL CONTROL OPERATOR [address] [place] [address] 02/03/2026 10:00 AM EDT Office Visit [facility] END[facility]CR[facility] [address] [place] [phone] Maria Guadalupe Escamilla MD [address] [place] [address] Health Maintenance Due Date Last Done Comments Annual Gynecologic Pelvic an d Breast Exam 1975 DIABETIC EYE EXAM 1985 DIABETIC FOOT EXAM 1985 URINE MICROALBUMIN-CREATININ E RATIO (uACR) 1985 Pneumococcal Vaccine 0-49 (1 of 2 - PCV) 1994 Hepatitis B (2 of 3 - 19+ 3- dose series) 07/21/2019 06/23/2019 COLOGUARD 2020 COLON CANCER SCREENING 5 YEA R SIGMOIDOSCOPY 2020 COLONOSCOPY 2020 [address] CANCER SCREENING 2020 CT COLONOGRAPHY 2020 FECAL OCCULT BLOOD TEST 2020 FIT Testing (1 year) 2020 TDAP/TD VACCINES (2 - Td or Tdap) 03/17/2023 013 ANNUAL PHYSICAL 03/03/2024 HEPATITIS C SCREENING 03/03/2024 PT PLAN OF CARE 06/03/2024 03/05/2024 INFLUENZA VACCINE 05/28/2025 HEMOGLOBIN A1C 01/13/2026 07/16/2025, 11/19/2024 MAMMOGRAM 07/22/2027 07/22/2025, 12/27, 03/09/2024, Additional history exists Procedures Procedure Name Priority Date/Time Associated Diagnosis Comments MAMMO DIAGNOSTIC DIGITAL TOMOSYNTHESIS LEFT W CAD Routine 07/22/2025 10:52 AM EDT Malignant neoplasm of overlapping sites of left female breast, unspecified estrogen receptor status POCT GLUCOSE, BLD (NON STRIP) Routine 07/16/2025 8:14 AM EDT Controlled type 2 diabetes mellitus without complication, without long-term current use of insulin POCT GLYCOSYLATED HEMOGLOBIN (HGB A1C) Routine 07/16/2025 8:14 AM EDT Controlled type 2 diabetes mellitus without complication, without long-term current use of insulin CBC AND DIFFERENTIAL Routine 07/15/2025 10:46 AM EDT Malignant neoplasm of left breast in female, estrogen receptor positive, unspecified site of breast CBC WITH AUTO DIFFERENTIAL Routine 07/15/2025 10:46 AM EDT Malignant neoplasm of left breast in female, estrogen receptor positive, unspecified site of breast COMPREHENSIVE METABOLIC PANEL Routine 07/15/2025 10:46 AM EDT Malignant neoplasm of left breast in female, estrogen receptor positive, unspecified site of breast SCANNED - LABS 07/06/2025 SCANNED - LABS 05/19/2025 from Last 3 Months Results * Mammo Diagnostic Digital Tomosynthesis Left [...] MD IMG MAMMOGRAPHY ORDERABLE S Final Result * POC Glucose, Blood (07/16/2025 8:14 AM EDT) Glucose 125 70 - 130 mg/dL Lot Number [id number] Expiration Date 12/18/2025 Blood 07/16/2025 8:14 AM EDT Maria Guadalupe Box MD POINT OF CARE TEST ORDERABLES Final Result * POC Glycosylated Hemoglobin (Hb A1C) (07/16/2025 8:14 AM EDT) Hemoglobin A1C 5.7 4.5 - 5.7 % [facility] Lot Number [id number] [facility] Expiration Date 01/28/2027 [facility] Blood 07/16/2025 8:14 AM EDT Maria Guadalupe Box MD POINT OF CARE TEST ORDERABLES Final Result [facility]
[address] [place] [address], * (ABNORMAL) CBC Auto Differential (07/15/2025 10:46 AM EDT) WBC 7.13 3.40 - 10.80 10*3/mm3 07/15/2025 10:48 AM EDT [facility] RBC 4.53 3.77 - 5.28 10*6/mm3 07/15/2025 10:48 AM EDT [facility] Hemoglobin 13.2 12.0 - 15.9 g/dL 07/15/2025 10:48 AM EDT [facility] Hematocrit 41.1 34.0 - 46.6 % 07/15/2025 10:48 AM EDT [facility] MCV 90.7 79.0 - 97.0 fL 07/15/2025 10:48 AM [facility] MCH 29.1 26.6 - 33.0 pg 07/15/2025 10:48 AM [facility] MCHC 32.1 31.5 - 35.7 g/dL 07/15/2025 10:48 AM [facility] RDW 12.2(L) 12.3 - 15.4 % 07/15/2025 10:48 AM [facility] RDW-SD 41.3 37.0 - 54.0 fl 07/15/2025 10:48 AM [facility] MPV 9.4 6.0 - 12.0 fL 07/15/2025 10:48 AM [facility] Platelets 271 140 - 450 10*3/mm3 07/15/2025 10:48 AM [facility] Neutrophil % 54.9 42.7 - 76.0 % 07/15/2025 10:48 AM [facility] Lymphocyte % 35.5 19.6 - 45.3 % 07/15/2025 10:48 AM [facility] Monocyte % 6.5 5.0 - 12.0 % 07/15/2025 10:48 AM [facility] Eosinophil % 2.9 0.3 - 6.2 % 07/15/2025 10:48 AM [facility] Basophil % 0.1 0.0 - 1.5 % 07/15/2025 10:[facility] Immature Grans % 0.1 0.0 - 0.5 % 07/15/2025 10:48 AM [facility] Neutrophils, Absolute 3.91 1.70 - 7.00 10*3/mm3 07/15/2025 10:48 [facility] Lymphocytes, Absolute 2.53 0.70 - 3.10 10*3/mm3 07/15/2025 10:48 [facility] Monocytes, Absolute 0.46 0.10 - 0.90 10*3/mm3 07/15/2025 10:48 AM EDT [facility] Eosinophils, Absolute 0.21 0.00 - 0.40 10*3/mm3 07/15/2025 10:48 AM EDT [facility] Basophils, Absolute 0.01 0.00 - 0.20 10*3/mm3 07/15/2025 10:48 AM EDT [facility] Immature Grans, Absolute 0.01 0.00 - 0.05 10*3/mm3 07/15/2025 10:48 AM EDT [facility] Blood Venipuncture / Unknown 07/15/2025 10:46 AM EDT 07/15/2025 10:46 AM EDT Dhara Delaney NUMERICAL CONTROL OPERATOR LAB BLOOD ORDERABLES Final Result [facility]
[address] [place] [address], * Comprehensive Metabolic Panel (07/15/2025 10:46 AM EDT) Glucose 87 65 - 99 mg/dL 07/15/2025 11:31 AM T [facility] BUN 13.4 6.0 - 20.0 mg/dL 07/15/2025 11:31 AM T [facility] Creatinine 0.83 0.57 - 1.00 mg/dL 07/15/2025 11:31 AM EDT [facility] Sodium 138 136 - 145 mmol/L 07/15/2025 11:31 AM EDT [facility] Potassium 3.6 3.5 - 5.2 mmol/L 07/15/2025 11:31 AM T [facility] Comment:Slight hemolysis det ected by analyzer. Result may be falsely elevated. Chloride 102 98 - 107 mmol/L 07/15/2025 11:31 AM EDT [facility] CO2 26.0 22.0 - 29.0 mmol/L 07/15/2025 11:31 AM [facility] Calcium 8.9 8.6 - 10.5 mg/dL 07/15/2025 11:31 AM [facility] Total Protein 6.6 6.0 - 8.5 g/dL 07/15/2025 11:31 AM [facility] Albumin 4.1 3.5 - 5.2 g/dL 07/15/2025 11:31 AM [facility] ALT (SGPT) 25 1 - 33 U/L 07/15/2025 11:31 AM [facility] AST (SGOT) 21 1 - 32 U/L 07/15/2025 11:31 AM [facility] Alkaline Phosphatase 107 39 - 117 U/L 07/15/2025 11:31 AM [facility] Total Bilirubin 0.3 0.0 - 1.2 mg/dL 07/15/2025 11:31 AM [facility] Globulin 2.5 gm/dL 07/15/2025 11:31 AM [facility] Comment:Calculated Result A/G Ratio 1.6 g/dL 07/15/2025 11:31 AM [facility] BUN/Creatinine Ratio 16.1 7.0 - 25.0 07/15/2025 11:31 AM [facility] Anion Gap 10.0 5.0 - 15.0 mmol/L 07/15/2025 11:31 AM [facility] eGFR 86.5 >60.0 mL/min/1.7 3 07/15/2025 11:31 AM [facility] Blood Venipuncture / Unknown 07/15/2025 10:46 AM EDT 07/15/2025 10:46 AM [facility] - 07/15/2025 11:31 AM EDT GFR [...] not include race as a factor Dhara Pagan Rhett NUMERICAL CONTROL OPERATOR LAB BLOOD ORDERABLES Final Result [facility]
[address] [place] [address], * LABS SCANNED (07/06/2025) Only the most recent of2 resultswithin the time period is included. Stephanie Olivera NUMERICAL CONTROL OPERATOR LAB BLOOD ORDERABLES Final Result from Last 3 Months Insurance Care Teams Policy Analyst Relationship Specialty Start Date End Date Stephanie Olivera APRN [address] [facility] [address] [place] [address] PCP - General Family Medicine 10/22/24
== END ==
LOC: SL 06:36
PROVIDERS: PCP Physician Assistant; Visit Provider Physician Assistant
DX: R06.81 Apnea, not elsewhere classified (principal)
CPT/HCPCS: G0399

== ENCOUNTER 2025-08-11 06:40 | Outpatient (CLI) | payer BC, SELFPAY ==
--- OUTSIDE RECORDS SUMMARY | 2024-08-04 05:40 | XMS_ITS | Encounter Summary ---
[facility] Address [address] [place] [address] Care Team Providers Care Energy Efficiency Finance Manager Name Role Phone Dalila Willoughby Primary Care Provider [phone] Reason for Visit * Auth/Cert (Routine) Specialty Diagnoses / Procedures Referred By Contac t Referred To Contact Diagnoses Malignant neoplasm of unspecified site of left female breast Referral ID Status Reason Start Date Expiration Date Visits Re quested Visits Authorized [id number] 1 1 Encounter Details Date Type Department Care Team (Late st Contact Info) Description 08/04/2024 5:40 AM EDT Hospital Encounter [facility] [address] [address] Social History Tobacco Use Types [...] Care Team (Late st Contact Info) Description 10/15/2025 11:00 AM EST Office Visit [facility] [address] [facility] [address] [place] [phone] Dhara Delaney, BACON STRINGER [address] [facility] [address] [place] [address] 11/17/2025 1:00 PM EST Office Visit [facility] [address] [place] [phone] Maria Guadalupe Escamilla MD [address] [place] [address] 11/18/2025 10:00 AM EST Office Visit [facility] [address] [place] [address] Gissel Blum, BACON STRINGER [address] [place] [address] 02/03/2026 10:00 AM EDT Office Visit [facility] [address] [place] [phone] Maria Guadalupe Escamilla MD [address] [facility] [address] [facility] [address] [place] [address] 08/03/2026 9:00 AM EDT Office Visit [facility] [address] [place] [phone] Frandy Menendez MD [address] [facility] [address] [place] [address] documented as of this encounter Visit Diagnoses Not on filedocumented in this encounter Additional Health Concerns Assessment Noted Time PHQ-2 Depression Total Score: 2 04/07/20 24 2:53 PM EDT documented as of this encounter Care Teams Energy Efficiency Finance Manager Relationship Specialty Start Date End Date Dalila Willoughby PA [address] [place] [address] PCP - General Physician Senior Administrator Support 05/07/23 10/21/24 documented as of this encounter
--- OUTSIDE RECORDS SUMMARY | 2024-11-17 15:37 | XMS_ITS | Encounter Summary ---
Author Organization [facility] Address [address] [place] [address] Care Team Providers Care Pipe Installer Name Role Phone Stephanie Olivera APRN Primary Care Provid er Reason for Visit * Diagnostic Imaging (Routine) - Closed Specialty Diagnoses / Procedures Referred By Contac t Referred To Contact Radiology Diagnoses Nontoxic multinodular goiter Procedures US Thyroid Maria Guadalupe Escamilla MD [address] [employer] [address] [place] [address] Phone: tel: fax: Referral ID Status Reason Start Date Expiration Date Visits Re quested Visits Authorized [id number] Closed 11/17/2024 11/17/2025 1 1 Encounter Details Date Type Department Care Team (Late st Contact Info) Description 11/17/2024 2:37 PM EST Hospital Encounter [facility] ENDOCRINOLOGY [address] [place] [phone] Social History Tobacco Use Types Packs/Day [...] Description 10/15/2025 11:00 AM EST Office Visit [facility] HEMATOLOGY & ONCOLOGY [address] [facility] [address] [place] [address] Dhara Delaney, FISCAL SPECIALIST [address]00 [facility] [address] [place] [address] 11/17/2025 1:00 PM EST Office Visit [facility] ENDOCRINOLOGY [address] [place] [address] Maria Guadalupe Escamilla MD [address] [place] [address] 11/18/2025 10:00 AM EST Office Visit [facility] [address] [place] [phone] Gissel Blum, FISCAL SPECIALIST [address] [place] [address] 02/03/2026 10:00 AM EDT Office Visit [facility] ENDOCRINOLOGY [address] [place] [address] Maria Guadalupe Escamilla MD [address] [place] [address] 08/03/2026 9:00 AM EDT Office Visit [facility] GENERAL SURGERY [address] [facility] [place] [address] Frandy Menendez MD [address] [place] [address] documented as of this encounter Procedures Procedure Name Priority Date/Time Associated Diagnosis Comments US THYROID Routine 11/17/2024 2:37 PM EST Nontoxic multinodular goiter documented in this encounter Results * US Thyroid (11/17/2024 2:37 PM EST) Narrative SYSTEMGENERATED, DOCUMENTATION - 11/17/2024 2:37 PM EST Please see performing physician's note for result. us Maria Guadalupe Box MD IM US ORDERABLES Final Result documented in this encounter Visit Diagnoses Not on filedocumented in this encounter Additional Health Concerns Assessment Noted Time PHQ-2 Depression Total Score: 2 04/07/20 24 2:53 PM EDT documented as of this encounter Care Teams Pipe Installer Relationship Specialty Start Date End Date Stephanie Olivera APRN [address]10 [facility] [address] [place] [address] PCP - General Family Medicine 10/22/24 documented as of this encounter
--- OUTSIDE RECORDS SUMMARY | 2025-07-15 10:45 | XMS_ITS | Encounter Summary ---
Author Organization [facility] Address [address] [place] [id number] Care Team Providers Care Skip Operator Name Role Phone Stephanie Olivera APRN Primary Care Provid er Encounter Details Date Type Department Care Team (Late st Contact Info) Description 07/15/2025 10:45 AM EDT Lab [facility] [address] [place] [phone] Malignant neoplasm of left breast in female, estrogen receptor positive, unspecified site of breast Social History Tobacco Use Types Packs/Day Years Used Date Smoking Tobacco: Never Smokeless Tobacco: Never Alcohol Use Standard Drinks/Week Comments Never 0 (1 standard drink = 0.6 oz pur e alcohol) Abuse Screen Answer Date Recorded Feels Unsafe at Home or Work/School no 04/01/2024 Feels Threatened by Someone no 0 02/2024 Does Anyone Try to Keep You [...] 10/15/2025 11:00 AM EST Office Visit [facility] HEMATOLOGY & ONCOLOGY [address] [facility] [address] [place] [address] Dhara Delaney, WELDING MACHINE OPERATOR/TENDER [address] [facility] [address] [place] [address] 11/17/2025 1:00 PM EST Office Visit [facility] ENDOCRINOLOGY [address] [facility] [address] [place] [phone] Maria Guadalupe Escamilla MD [address] [facility] [address] [place] [address] 11/18/2025 10:00 AM EST Office Visit [facility] [address] [place] [address] Gissel Blum APRN [address] [place] [address] 02/03/2026 10:00 AM EDT Office Visit [facility] ENDOCRINOLOGY [address] [facility] [address] [facility] [address] [place] [phone] Maria Guadalupe Escamilla MD [address] [facility] [address] [address] 08/03/2026 9:00 AM EDT Office Visit [facility] GENERAL SURGERY [address] [place] [phone] Frandy Menendez MD [address] [facility] [address] [place] [address] documented as of this encounter Procedures Procedure Name Priority Date/Time Associated Diagnosis Comments CBC WITH AUTO DIFFERENTIAL Routine 07/15/2025 10:46 AM EDT Malignant neoplasm of left breast in female, estrogen receptor positive, unspecified site of breast CBC AND DIFFERENTIAL Routine 07/15/2025 10:46 AM EDT Malignant neoplasm of left breast in female, estrogen receptor positive, unspecified site of breast COMPREHENSIVE METABOLIC PANEL Routine 07/15/2025 10:46 AM EDT Malignant neoplasm of left breast in female, estrogen receptor positive, unspecified site of breast documented in this encounter Results * (ABNORMAL) CBC Auto Differential (07/15/2025 10:46 AM EDT) WBC 7.13 3.40 - 10.80 10*3/mm3 07/15/2025 10:48 AM EDT [facility] RBC 4.53 3.77 - 5.28 10*6/mm3 07/15/2025 10:48 AM EDT [facility] Hemoglobin 13.2 12.0 - 15.9 g/dL 07/15/2025 10:48 AM EDT [facility] Hematocrit 41.1 34.0 - 46.6 % 07/15/2025 10:48 AM EDT [facility] MCV 90.7 79.0 - 97.0 fL 07/15/2025 10:48 AM EDT [facility] MCH 29.1 26.6 - 33.0 pg 07/15/2025 10:48 AM EDT [facility] MCHC 32.1 31.5 - 35.7 g/dL 07/15/2025 10:48 AM EDT [facility] RDW 12.2(L) 12.3 - 15.4 % 07/15/2025 10:48 AM EDT [facility] RDW-SD 41.3 37.0 - 54.0 fl 07/15/2025 10:48 AM EDT [facility] MPV 9.4 6.0 - 12.0 fL 07/15/2025 10:48 AM EDT [facility] Platelets 271 140 - 450 10*3/mm3 07/15/2025 10:48 AM EDT [facility] Neutrophil % 54.9 42.7 - 76.0 % 07/15/2025 10:48 AM EDT [facility] Lymphocyte % 35.5 19.6 - 45.3 % 07/15/2025 10:48 AM EDT [facility] Monocyte % 6.5 5.0 - 12.0 % 07/15/2025 10:48 AM EDT [facility] Eosinophil % 2.9 0.3 - 6.2 % 07/15/2025 10:48 AM EDT [facility] Basophil % 0.1 0.0 - 1.5 % 07/15/2025 10:48 AM EDT [facility] Immature Grans % 0.1 0.0 - 0.5 % 07/15/2025 10:48 AM EDT [facility] Neutrophils, Absolute 3.91 1.70 - 7.00 10*3/mm3 07/15/2025 10:48 AM EDT [facility] Lymphocytes, Absolute 2.53 0.70 - 3.10 10*3/mm3 07/15/2025 10:48 AM EDT [facility] Monocytes, Absolute 0.46 0.10 - 0.90 10*3/mm3 07/15/2025 10:48 AM EDT [facility] Eosinophils, Absolute 0.21 0.00 - 0.40 10*3/mm3 07/15/2025 10:48 [address] [facility] Basophils, Absolute 0.01 0.00 - 0.20 10*3/mm3 07/15/2025 10:48 AM EDT [facility] Immature Grans, Absolute 0.01 0.00 - 0.05 10*3/mm3 07/15/2025 10:48 AM T [facility] Blood Venipuncture / Unknown 07/15/2025 10:46 AM EDT 07/15/2025 10:46 AM EDT Dhara Delaney WELDING MACHINE OPERATOR/TENDER LAB BLOOD ORDERABLES Final Result [facility]
[address] [place] [address], * Comprehensive Metabolic Panel (07/15/2025 10:46 AM EDT) Glucose 87 65 - 99 mg/dL 07/15/2025 11:31 AM EDT [facility] BUN 13.4 6.0 - 20.0 mg/dL 07/15/2025 11:31 AM EDT [facility] Creatinine 0.83 0.57 - 1.00 mg/dL 07/15/2025 11:31 AM EDT [facility] Sodium 138 136 - 145 mmol/L 07/15/2025 11:31 AM EDT [facility] Potassium 3.6 3.5 - 5.2 mmol/L 07/15/2025 11:31 AM EDT [facility] Comment:Slight hemolysis det ected by analyzer. Result may be falsely elevated. Chloride 102 98 - 107 mmol/L 07/15/2025 11:31 AM EDT [facility] CO2 26.0 22.0 - 29.0 mmol/L 07/15/2025 11:31 AM EDT [facility] Calcium 8.9 8.6 - 10.5 mg/dL 07/15/2025 11:31 AM EDT [facility] Total Protein 6.6 6.0 - 8.5 g/dL 07/15/2025 11:31 AM EDT [facility] Albumin 4.1 3.5 - 5.2 g/dL 07/15/2025 11:31 AM EDT [facility] ALT (SGPT) 25 1 - 33 U/L 07/15/2025 11:31 AM EDT [facility] AST (SGOT) 21 1 - 32 U/L 07/15/2025 11:31 AM EDT [facility] Alkaline Phosphatase 107 39 - 117 U/L 07/15/2025 11:31 AM EDT [facility] Total Bilirubin 0.3 0.0 - 1.2 mg/dL 07/15/2025 11:31 AM EDT [facility] Globulin 2.5 gm/dL 07/15/2025 11:31 AM EDT [facility] Comment:Calculated Result A/G Ratio 1.6 g/dL 07/15/2025 11:31 AM EDT [facility] BUN/Creatinine Ratio 16.1 7.0 - 25.0 07/15/2025 11:31 AM EDT [facility] Anion Gap 10.0 5.0 - 15.0 mmol/L 07/15/2025 11:31 AM EDT [facility] eGFR 86.5 >60.0 mL/min/1.7 3 07/15/2025 11:31 AM EDT [facility] Blood Venipuncture / Unknown 07/15/2025 10:46 AM EDT 07/15/2025 10:46 AM EDT Narrative [facility] - 07/15/2025 11:31 AM EDT GFR Categories in Chronic Kidney Disease [...] does not include race as a factor Dhara Delaney APRN LAB BLOOD ORDERABLES Final Result [facility]
[address] [place] [address], documented in this encounter Visit Diagnoses Diagnosis Malignant neoplasm of left breast in female, estrogen receptor positive, unspecified site of breast documented in this encounter Additional Health Concerns Assessment Noted Time PHQ-2 Depression Total Score: 2 04/07/20 24 2:53 PM EDT documented as of this encounter Care Teams Skip Operator Relationship Specialty Start Date End Date Stephanie Olivera APRN [address] [place] [address] PCP - General Family Medicine 10/22/24 documented as of this encounter
--- OUTSIDE RECORDS SUMMARY | 2025-07-15 11:15 | XMS_ITS | Encounter Summary ---
[facility] [address] [place] [phone] Care Team Providers Care Turbine Blade Assembler Name Role Phone Joselin Stephanie Tish JERROD Primary Care Provid er Encounter Details Date Type Department Care Team (Late st Contact Info) Description 07/15/2025 11:15 AM EDT Office Visit [facility] HEMATOLOGY & ONCOLOGY [address] [phone] Rocio Kellogg MD [address]00 [place] [address] Malignant neoplasm of left breast in female, [...] PROBLEM LIST: pT1cN0(i+)M0 ER positive (100%, 3+) DE positive (>95%, 3+) HER2 positive (2+, positive [...] by vascular surgeon Dr. Bang Barkley at [facility]. Follow-up in 3 months with labs. I spent 32 minutes caring for Martha on this date of service. This time includes time spent by me in the following activities: preparing for the visit, reviewing tests, performing a medically appropriate examination and/or evaluation, counseling and educating the patient/family/caregiver, referring and communicating with other health home care rn, documenting information in the medical record, independently interpreting results and communicating that information with the patient/family/caregiver, ordering medications, and ordering test(s) Rocio Kellogg MD [facility] Hematology and Oncology 07/15/2025 CC: documented in this encounter Plan of Treatment Upcoming Encounters Date Type Department Care Team (Late st Contact Info) Description 10/15/2025 11:00 AM EST Office Visit [facility] HEMATOLOGY & ONCOLOGY [address] [facility] [address] [place] [phone] Dhara Delaney, ENVIRONMENTAL HEALTH PHYSICIAN [address] [facility] [address] [place] [address] 11/17/2025 1:00 PM EST Office Visit [facility] ENDOCRINOLOGY [address] [place] [phone] Maria Guadalupe Escamilla MD [address] [place] [address] 11/18/2025 10:00 AM EST Office Visit [facility] [address] [place] [phone] Gissel Blum, ENVIRONMENTAL HEALTH PHYSICIAN 17[address] [place] [address] 02/03/2026 10:00 AM EDT Office Visit [facility] ENDOCRINOLOGY [address] [place] [phone] Maria Guadalupe Escamilla MD [address] [place] [address] 08/03/2026 9:00 AM EDT Office Visit [facility] GENERAL SURGERY [address] [facility] [place] [place] [address] Frandy Menendez MD [address] [place] [address] Scheduled Orders Name Type Priority Associated Diagnoses [...] documented as of this encounter Care Teams Turbine Blade Assembler Relationship Specialty Start Date End Date Stephanie Olivera APRN [address] [facility] [address] [place] [address] PCP - General Family Medicine 10/22/24 documented as of this encounter
--- OUTSIDE RECORDS SUMMARY | 2025-07-16 08:15 | XMS_ITS | Encounter Summary ---
Author Organization [facility] Address [address] [place] [address] Care Team Providers Care Oil Well Directional Surveyor Name Role Phone Stephanie Olivera APRN Primary Care Provid er Reason for Visit * Reason Comments Nontoxic multinodular goiter Follow up Pre-diabetes Sugar has been spiki ngPCP gave dexcom Encounter Details Date Type Department Care Team (Late st Contact Info) Description 07/16/2025 8:15 AM EDT Office Visit [facility]OLOGY [address] [facility] [address] [place] [address] Maria Guadalupe Escamilla MD [address] [place], [place] [id number] Controlled type 2 diabetes mellitus without complication, [...] mm. Abnormal thyroid function test - took COLOR ADVISER thyroid for a year for abnormal free [...] 0 Continuous Glucose Sensor (Dexcom G7 Sensor) [facility], Use 1 each Every 10 (Ten) Days., [...] reviewed. We have discussed the following concepts: prison diabetic complications discussed. , diabetic Sick Day [...] Description 10/15/2025 11:00 AM EST Office Visit [facility] HEMATOLOGY & ONCOLOGY [address] [facility] [address] [place] [address] Dhara Delaney, COMMUNICATIONS SUPERVISOR [address] [facility] [address] [place] [address] 11/17/2025 1:00 PM EST Office Visit [facility] ENDOCRINOLOGY [address] [place] [address] Maria Guadalupe Escamilla MD [address] [place] [address] 11/18/2025 10:00 AM EST Office Visit [facility] [address]00 [place] [address] Gissel Blum, COMMUNICATIONS SUPERVISOR [address]00 [place] [address] 02/03/2026 10:00 AM EDT Office Visit [facility] END[facility] [address] [place] [address] Maria Guadalupe Escamilla MD [address] [place] [address] 08/03/2026 9:00 AM EDT Office Visit [facility] GENERAL SURGERY [address]00 [place] [address] Frandy Menendez MD 1760 [facility] 202 [place] [address] documented as of this encounter Procedures Procedure [...] Hemoglobin A1C 5.7 4.5 - 5.7 % [facility] Lot Number [id number] [facility] Expiration Date 01/28/2027 [facility] Blood 07/16/2025 8:14 AM EDT Maria Guadalupe Box MD POINT OF CARE TEST ORDERABLES Final Result [facility]
[address] [place] [address], documented in this encounter Visit Diagnoses Diagnosis Controlled type 2 diabetes mellitus without complication, without long-term current use of insulin- Primary Nontoxic multinodular goiter Hypoglycemia Hypoglycemia, unspecified documented in this encounter Additional Health Concerns Assessment Noted Time PHQ-2 Depression Total Score: 2 04/07/20 24 2:53 PM EDT documented as of this encounter Care Teams Oil Well Directional Surveyor Relationship Specialty Start Date End Date Stephanie Olivera APRN [address] [place] [address] PCP - General Family Medicine 10/22/24 documented as of this encounter
--- OUTSIDE RECORDS SUMMARY | 2025-07-22 09:00 | XMS_ITS | Encounter Summary ---
Author Organization [facility] Address [address] [place] [address] Care Team Providers Care Rolling Attendant Name Role Phone Stephanie Olivera APRN Primary Care Provid er Reason for Visit * Diagnostic Imaging (Routine) - Closed Specialty Diagnoses / Procedures Referred By Contac t Referred To Contact Radiology Diagnoses Malignant neoplasm of overlapping sites of left female breast, unspecified estrogen receptor status Procedures Mammo Diagnostic Digital Tomosynthesis Left With CAD Mammo Diagnostic Left With CAD Mammo Diagnostic Digital Tomosynthesis Bilateral With CAD CHG DIGITAL BREAST TOMOSYNTHESIS BILATERAL NV TOMOSYNTHESIS, MAMMO Frandy Menendez MD [address] [place] [id number] Phone: tel: fax: Referral ID Status Reason Start Date Expiration Date Visits Re quested Visits Authorized [id number] Closed 04/22/2025 06/10/2025 1 1 Encounter Details Date Type Department Care Team (Late st Contact Info) Description 07/22/2025 9:00 AM EDT - 07/22/2025 11:59 PM EDT Hospital Encounter [facility] [address] [place] [address] Frandy Menendez MD 1760 [facility] 202 [place] [address] Malignant neoplasm of overlapping sites of left female breast, unspecified estrogen receptor status Discharge Disposition: Home or Self Care Social [...] or Shortness of Air. 18 g 12/04/2024 Continuous Glucose Sensor (Dexcom G7 Sensor) miscIndications:C ontrolled type 2 diabetes mellitus without complication, without long-term current use of insulin,Hypoglyce fara Use 1 each Every 10 (Ten) Days. 3 each 11 07/16/2025 ibuprofen (ADVIL,MOTRIN) 800 MG tablet Take 1 tablet by mouth 3 times a day. 11/02/2024 losartan (COZAAR) 25 MG tablet Take 1 tablet by mouth Daily. 11/02/2024 tamoxifen (NOLVADEX) 20 MG chemo tablet Take 1 tablet by mouth Daily. 30 tablet 12/03/2024 venlafaxine XR (EFFEXOR-XR) 150 MG 24 hr capsuleIndication s:Malignant neoplasm of left breast in female, estrogen receptor positive, unspecified site of breast Take 1 capsule by mouth Daily. 30 capsule 5 07/15/2025 estradiol (ESTRACE VAGINAL) 0.1 MG/GM vaginal cream Insert 1 g into the vagina 2 (Two) Times a Week. 42.5 g 12 07/15/2025 Tirzepatide (MOUNJARO) 2.5 MG/0.5ML solution auto-injector Inject 2.5 mg under the skin into the appropriate area as directed 1 (One) Time Per Week. 2 mL 07/16/2025 documented as of this encounter Plan of Treatment Upcoming Encounters Date Type Department Care Team (Late st Contact Info) Description 10/15/2025 11:00 AM EST Office Visit [facility] HEMATOLOGY & ONCOLOGY [address]00 [facility] [address] [place] [address] Dhara Delaney APRN [address]00 [facility] [address] [place] [address] 11/17/2025 1:00 PM EST Office Visit [facility] ENDOCR[facility] [address] [place] [address] Maria Guadalupe Escamilla MD [address] [place] [address] 11/18/2025 10:00 AM EST Office Visit [facility] [address]00 [place] [address] Gissel Blum APRN 1700 [place] [address] 02/03/2026 10:00 AM EDT Office Visit [facility] [address] [place] [address] Maria Guadalupe Escamilla MD [address] [place] [address] 08/03/2026 9:00 AM EDT Office Visit [facility] GENERAL SURGERY [address] [facility] [place] [address] Frandy Menendez MD [address] [facility] [address] [place] [address] documented as of this encounter Procedures Procedure Name Priority Date/Time Associated Diagnosis Comments MAMMO DIAGNOSTIC DIGITAL TOMOSYNTHESIS LEFT W CAD Routine 07/22/2025 10:52 AM EDT Malignant neoplasm of overlapping sites of left female breast, unspecified estrogen receptor status documented in this encounter Results * Mammo Diagnostic Digital Tomosynthesis Left With CAD (07/22/2025 10:52 AM EDT) Anatomical Region Laterality Modality Breast Left Mammography 07/22/2025 12:5 1 PM EDT Impressions 07/22/2025 12:54 PM EDT Postsurgical changes on the left at 12:00, no mammographic findings worrisome for malignancy. ACR BI-RADS CATEGORY: 3, PROBABLY BENIGN RECOMMENDATION: 6-month follow-up according to the lumpectomy protocol. The patient will be due for bilateral breast imaging at that time. CAD was utilized. The standard false-negative rate of mammography is between 10% and 25%. Complex patterns or increased breast density will markedly elevate the false-negative rate of mammography. A letter, in lay terminology, with the results of this exam was given to the patient at the time of the visit. 07/22/2025 12:54 PM by Sara aPnda MD on Narrative 07/22/2025 12:54 PM EDT LEFT DIGITAL DIAGNOSTIC MAMMOGRAM WITH TOMOSYNTHESIS CLINICAL HISTORY: Short-term interval follow-up according to the lumpectomy protocol. Breast conservation surgery on 03/27/2024 followed by adjuvant radiation therapy. TECHNIQUE: 2D and tomosynthesis CC and MLO views were obtained. COMPARISON: Prior comparisons from 01/18/2025 as well as previous images prior to the patient surgery from 02/20/2024, 02/05/2024, 01/16/2024 as well as 12/18/2022 and 12/12/2021. MAMMOGRAM FINDINGS: There are scattered areas of fibroglandular density. Presumed postsurgical changes are noted within the 12:00 left breast. Spot compression imaging demonstrates findings that are consistent with postsurgical scar. There glandular pattern is overall stable with no new masses, areas of nonsurgical distortion or suspicious microcalcifications. us Frandy Menendez MD IMG MAMMOGRAPHY ORDERABLE S Final Result documented in this encounter Visit Diagnoses Diagnosis Malignant neoplasm of overlapping sites of left female breast, unspecified estrogen receptor status documented in this encounter Additional Health Concerns Assessment Noted Time PHQ-2 Depression Total Score: 2 04/07/20 24 2:53 PM EDT documented as of this encounter Care Teams Rolling Attendant Relationship Specialty Start Date End Date Stephanie Olivera APRN [address] [place] [address] [place] [address] PCP - General Family Medicine 10/22/24 documented as of this encounter
--- OUTSIDE RECORDS SUMMARY | 2025-07-28 09:00 | XMS_ITS | Encounter Summary ---
Author Organization [facility] Address [address] [place] [address] Care Team Providers Care Register Repairer Name Role Phone JoselinJessicaah Tish ELDER Primary Care Provid er Reason for Visit * Reason Comments Follow-up 6 MONTH LEFT, BREAST CANCER Encounter Details Date Type Department Care Team (Late st Contact Info) Description 07/28/2025 9:00 AM EDT Office Visit [facility] GENERAL SURGERY [address] [facility] [address] [place] [address] Frandy Menendez MD [address] [facility] [address] [place] [address] Malignant neoplasm of overlapping sites of left breast in female, estrogen receptor positive (Primary Dx) Social History Tobacco Use Types [...] Sign Reading Time Taken Comments Blood Pressure 144/87 07/28/2025 8:56 AM EDT Pulse - - Temperature - - Respiratory Rate - - Oxygen Saturation - - Inhaled Oxygen Concentration - - Weight 108 kg (237 lb) 07/28/2025 8:56 AM EDT Height 65 cm (2' 1.59 ) 07/28/2025 8:56 AM EDT Body Mass Index 254.43 07/28/2025 8:56 AM EDT documented in this encounter Progress Notes * Frandy Menendez MD - 07/28/2025 9:00 AM EDTAssociated Problem(s): Malignant neoplasm of left breast in female, estrogen receptor positive Cancer Staging ypT1, ypN0(sn), cM0, G2, ER+, MO+, HER2+ Stage IA (cT1, cN0, cM0, G2, ER+, MO+, HER2+) Patient is status post left breast lumpectomy and sentinel for biopsy on 03/27/2024 She completed TCH and radiation On tamoxifen and following up with Dr. Kellogg Left diagnostic mammogram on 06/2025 with BI-RADS 3 Bilateral diagnostic mammogram in December 2025 Routine self breast exams Follow-up with Dr. Kellogg * Frandy Menendez MD - 07/28/2025 9:00 AM EDT Name: Martha Gregory Date: 07/28/25 Referring provider: Stephanie Olivera* Subjective: Martha Gregory is a 49 y.o. female referred for evaluation of diagnosed carcinoma of the left breast. The patient was initially referred for surgical evaluation of an abnormal mammogram. The patient subsequently underwent lumpectomy left with sentinel lymph node biopsy (date - 03/27/2024). Patient received TCH. She completed the course and is currently on tamoxifen. She is follow-up with Dr. Kellogg. Recent left diagnostic mammogram on 06/2025 with BI- RADS 3. She had mild complaints of left arm lymphedema and using a pump. Findings at that time were the following: Tumor size: 11 mm Tumor grade: 2 with LVI Estrogen Receptor: Positive Progesterone Receptor: Positive Her-2 babak: Positive Lymph node status: Isolated tumor The following portions of the patient's history were reviewed and updated as appropriate: allergies, current medications, past family history, past medical history, past social history, past surgicalhistory, and problem list. Review of Systems Pertinent items are noted in HPI. Objective: Vitals: 07/28/25 0856 BP: 144/87 Body mass index is 254.43 kg/m??. Physical Exam Lungs: clear to auscultation bilaterally Heart: regular rate and rhythm, S1, S2 normal, no murmur, click, rub or gallop Breasts: normal appearance, no masses Symmetric No nipple inversion or discharge Left lumpectomy and axillary incisions have healed well Left arm with no lymphedema Assessment/Plan: Assessment & Plan Malignant neoplasm of overlapping sites of left breast in female, estrogen receptor positive Cancer Staging ypT1, ypN0(sn), cM0, G2, ER+, MO+, HER2+ Stage IA (cT1, cN0, cM0, G2, ER+, MO+, HER2+) Patient is status post left breast lumpectomy and sentinel for biopsy on 03/27/2024 She completed TCH and radiation On tamoxifen and following up with Dr. Kellogg Left diagnostic mammogram on 06/2025 with BI-RADS 3 Bilateral diagnostic mammogram in December 2025 Routine self breast exams Follow-up with Dr. Kellogg Return in about 1 year (around 07/28/2026). Frandy Menendez MD documented in this encounter Plan of Treatment Upcoming Encounters Date Type Department Care Team (Late st Contact Info) Description 10/15/2025 11:00 AM EST Office Visit [facility] HEMATOLOGY & ONCOLOGY [address] [facility] [address] [place] [address] Dhara Delaney, PRIMARY TEACHER [address] [facility] [address] [place] [address] 11/17/2025 1:00 PM EST Office Visit [facility] ENDOCRINOLOGY [address] [place] [address] Maria Guadalupe Escamilla MD [address] [place] [address] 11/18/2025 10:00 AM EST Office Visit [facility] [address] [place] [phone] Gissel Blum, PRIMARY TEACHER [address] [place] [address] 02/03/2026 10:00 AM EDT Office Visit [facility]CR[facility] [address] [place] [phone] Maria Guadalupe Escamilla MD [address] [facility] [address] [facility] [address] [place] [address] 08/03/2026 9:00 AM EDT Office Visit [facility] GENERAL SURGERY [address] [place] [phone] Frandy Menendez MD [address] [facility] [address] [place] [address] documented as of this encounter Visit Diagnoses Diagnosis Malignant neoplasm of overlapping sites of left breast in female, estrogen receptor positive- Primary documented in this encounter Additional Health Concerns Assessment Noted Time PHQ-2 Depression Total Score: 2 04/07/20 24 2:53 PM EDT documented as of this encounter Care Teams Register Repairer Relationship Specialty Start Date End Date Stephanie Olivera APRN [address] [place] [address] [address] [facility] [address] [place] [address] PCP - General Family Medicine 10/22/24 documented as of this encounter
--- NOTE | 2025-08-11 06:42 | MR_ITS ---
FINAL REPORT TECHNIQUE: Multiplanar and multisequence imaging the right knee was obtained without contrast. CLINICAL HISTORY: PAIN AND SWELLING IN RIGHT KNEE. POSTERIOR KNEE PAIN FINDINGS: Bones: There is no acute fracture or marrow edema. The joint space is preserved. There is a partial-thickness cartilage defect of the medial patellar facet. No full-thickness cartilage defect is seen. Menisci: There is an oblique tear of the posterior horn of the lateral meniscus and a vertical tear at the posterior horn of the medial meniscus. Anterior horns of the medial and lateral menisci are intact. Ligaments: No cruciate or collateral ligament tear is present. Tendons/Muscles: The quadriceps and patellar tendons are intact. The biceps femoris tendon and iliotibial tract are intact. The popliteus tendon is unremarkable. Other: There is a joint effusion. A popliteal cyst is noted. Remaining soft tissues are normal. IMPRESSION: Tears of the posterior horns of the medial and lateral menisci. Cartilage defect of the medial patellar facet. Reviewed, Interpreted and Dictated by Gloria Alex MD Transcribed by Irasema Macdonald Authenticated and [facility]
--- OUTSIDE RECORDS SUMMARY | 2025-08-11 06:42 | XMS_ITS | Clinical Summary ---
Author Organization [facility] Address [address] [place] [address] Care Team Providers Care Beauty Culturist Name Role Phone Stephanie Olivera APRN Primary [...] Week. 42.5 g 12 07/15/20 25 Active Additional Information Patient not taking.Reported on 07/28/2025 Continuous Glucose Sensor (Dexcom G7 Sensor) miscIndications :Controlled type 2 diabetes mellitus without complication, without long-term current use of insulin,Hypogly cemia Use 1 each Every 10 (Ten) Days. 3 each 07/16/20 25 Active Tirzepatide (MOUNJARO) 2.5 MG/0.5ML solution auto-injector Inject 2.5 mg under the skin into the appropriate area as directed 1 (One) Time Per Week. 6 mL 07/31/20 25 Active LORazepam (ATIVAN) 0.5 MG tablet [...] MOUTH EVERY DAY 30 capsule 6 02/23/20 25 025 Discontinue d(Reorder) latanoprost (XALATAN) 0.005 % ophthalmic solution instill 1 drop onto affected eyelid/lashes EVERY DAY 02/03/20 025 Discontinue d(Patient Reported Not Taking) furosemide [...] mouth Daily. Two tablets 60 tablet 3 02/26/20 25 025 Discontinue d(Patient Reported Not Taking) Continuous Glucose Sensor (Dexcom G7 Sensor) [facility] Use. 025 Discontinue d(Reorder) Tirzepatide (MOUNJARO) 2.5 MG/0.5ML solution auto-injector Inject 2.5 mg under the skin into the appropriate area as directed 1 (One) Time Per Week. 2 mL 07/16/20 025 Discontinue d(Reorder) Active Problems Problem Noted Date Diagnosed Date Nontoxic multinodular goiter 07/16/2025 Port-A-Cath in place 04/15/2024 Malignant neoplasm of left b reast in female, estrogen receptor positive 04/01/2024 Cancer Staging:Pathologic stage from 03/27/2024: ypT1, ypN0(sn), cM0, G2, ER+, MN+, HER2+ - Signed by Frandy Menendez MD on 07/28/2025 Clinical:Stage IA(cT1, cN0, cM0, G2, ER+, MN+, HER2+) - Signed by Frandy Menendez MD on 07/28/2025 Assessment & Plan (07/28/2025 9:37 AM EDT): Cancer Staging ypT1, ypN0(sn), cM0, G2, ER+, MN+, HER2+ Stage IA (cT1, cN0, cM0, G2, ER+, MN+, HER2+) Patient is status post left breast lumpectomy and sentinel for biopsy on 03/27/2024 She completed TCH and radiation On tamoxifen and following up with Dr. Kellogg Left diagnostic mammogram on 06/2025 with BI-RADS 3 Bilateral diagnostic mammogram in December 2025 Routine self breast exams Follow-up with Dr. Kellogg Encounters Date Type Department Care Team Description 08/03/2025 [facility] HEMATOLOGY & ONCOLOGY [address] [place] [address] Dhara Delaney, NEEDLE PUNCH MACHINE OPERATOR HELPER Malignant neoplasm of left breast in female, estrogen receptor positive, unspecified site of breast 08/02/2025 Prior Authorization [facility] [address] [facility] [address] [place] [address] Ade Becker 07/30/2025 Refill [facility] [address] [facility] [address] [facility] [address] [place] [address] Maria Guadalupe Escamilla MD 07/28/2025 9:00 AM EDT Office Visit [facility] GENERAL SURGERY [address] [facility] [address] [place] [address] Frandy Menendez MD Malignant neoplasm of overlapping sites of left breast in female, estrogen receptor positive (Primary Dx) 07/28/2025 Travel 07/22/2025 9:00 AM EDT - 07/22/2025 11:59 PM EDT Hospital Encounter [facility] BREAST CENTER [address] [facility] [address] [place] [address] Frandy Menendez MD Malignant neoplasm of overlapping sites of left female breast, unspecified estrogen receptor status Discharge Disposition: Home or Self Care 07/22/2025 Travel 07/16/2025 8:15 AM EDT Office Visit [facility] [address] [facility] [address] [place] [address] Maria Guadalupe Escamilla MD Controlled type 2 diabetes mellitus without complication, without long-term current use of insulin (Primary Dx); Nontoxic multinodular goiter; Hypoglycemia 07/15/2025 11:15 AM EDT Office Visit [facility] HEMATOLOGY & ONCOLOGY [address] [facility] [address] [place] [address] Rocio Kellogg MD Malignant neoplasm of left breast in female, estrogen receptor positive, unspecified site of breast 07/15/2025 10:45 AM EDT Lab [facility] ONCOLOGY LAB [address] [place] [address] Malignant neoplasm of left breast in female, [...] 1 Maternal Uncle 2 Gene Alive Mother Carolnia Alive Niece Alive Paternal Grandfather Paternal Grandmother [...] Pressure 144/87 07/28/2025 8:56 AM EDT Pulse 92 07/16/2025 8:03 AM EDT Temperature 36.3 C (97.3 F) 07/15/2025 11:16 AM EDT Respiratory Rate 18 07/15/2025 11:16 AM EDT Oxygen Saturation 98% 07/16/2025 8:03 AM EDT Inhaled Oxygen Concentration - - Weight 108 kg (237 lb) 07/28/2025 8:56 AM EDT Height 65 cm (2' 1.59 ) 07/28/2025 8:56 AM EDT Body Mass Index 254.43 07/28/2025 8:56 AM EDT Plan of Treatment Upcoming Encounters Date Type Department Care Team (Late st Contact Info) Description 10/15/2025 11:00 AM EST Office Visit [facility] HEMATOLOGY & ONCOLOGY [address] [facility] [address] [place] [address] Dhara Delaney, NEEDLE PUNCH MACHINE OPERATOR HELPER [address] [facility] [address] [place] [address] 11/17/2025 1:00 PM EST Office Visit [facility] ENDOCRIN[facility] [address] [place] [address] Maria Guadalupe Escamilla MD [address] [place] [address] 11/18/2025 10:00 AM EST Office [facility] [address] [place] [address] Gissel Blum, NEEDLE PUNCH MACHINE OPERATOR HELPER [address] [place] [address] 02/03/2026 10:00 AM EDT Office Visit [facility] END[facility] [address] [place] [address] Maria Guadalupe Escamilla MD [address] [place] [address] 08/03/2026 9:00 AM EDT Office Visit [facility] GENERAL SURGERY [address] [place] [address] Frandy Menendez MD [address] [facility] [address] [place] [phone] Health Maintenance Due Date Last Done Comments Annual Gynecologic Pelvic an d Breast Exam 1975 DIABETIC EYE EXAM 1985 DIABETIC FOOT EXAM 1985 URINE MICROALBUMIN-CREATININ E RATIO (uACR) 1985 Pneumococcal Vaccine 50+ (1 of 2 - PCV) 1994 ZOSTER VACCINE (1 of 2) 1994 Hepatitis B (2 of 3 - [...] areas of nonsurgical distortion or suspicious microcalcifications. Frandy Menendez MD IMG MAMMOGRAPHY ORDERABLE S Final Result * POC Glucose, Blood (07/16/2025 8:14 AM EDT) Pathologist [facility] [place] Glucose 125 70 - 130 mg/dL Lot Number [id number] Expiration Date 12/18/2025 Blood 07/16/2025 8:14 AM EDT Maria Guadalupe Box MD POINT OF CARE TEST ORDERABLES Final Result * POC Glycosylated Hemoglobin (Hb A1C) (07/16/2025 8:14 AM EDT) Pathologist [facility] [place] Hemoglobin A1C 5.7 4.5 - 5.7 % [facility] Lot Number [id number] [facility] Expiration Date 01/28/2027 [facility] Blood 07/16/2025 8:14 AM EDT Maria Guadalupe Box MD POINT OF CARE TEST ORDERABLES Final Result [facility]
[address] [place] [id number], * (ABNORMAL) CBC Auto Differential (07/15/2025 10:46 AM EDT) Pathologist [facility] [place] WBC 7.13 3.40 - 10.80 10*3/mm3 07/15/2025 10:48 AM EDT [facility] RBC 4.53 3.77 - 5.28 10*6/mm3 07/15/2025 10:48 AM EDT [facility] Hemoglobin 13.2 12.0 - 15.9 g/dL 07/15/2025 10:[facility] Hematocrit 41.1 34.0 - 46.6 % 07/15/2025 10:48 [facility] MCV 90.7 79.0 - 97.0 fL 07/15/2025 10:48 [facility] MCH 29.1 26.6 - 33.0 pg 07/15/2025 10:48 AM EDT [facility] MCHC 32.1 31.5 - 35.7 g/dL 07/15/2025 10:48 AM [facility] RDW 12.2(L) 12.3 - 15.4 % 07/15/2025 10:48 AM [facility] RDW-SD 41.3 37.0 - 54.0 fl 07/15/2025 10:48 AM [facility] MPV 9.4 6.0 - 12.0 fL 07/15/2025 10:48 AM [facility] Platelets 271 140 - 450 10*3/mm3 07/15/2025 10:48 AM [facility] Neutrophil % 54.9 42.7 - 76.0 % 07/15/2025 10:48 AM [facility] Lymphocyte % 35.5 19.6 - 45.3 % 07/15/2025 10:48 [facility] Monocyte % 6.5 5.0 - 12.0 % 07/15/2025 10:48 [facility] Eosinophil % 2.9 0.3 - 6.2 % 07/15/2025 10:48 AM EDT [facility] Basophil % 0.1 0.0 - 1.5 % 07/15/2025 10:48 [facility] Immature Grans % 0.1 0.0 - 0.5 % 07/15/2025 10:48 AM EDT [facility] Neutrophils, Absolute 3.91 1.70 - 7.00 10*3/mm3 07/15/2025 10:48 AM EDT [facility] Lymphocytes, Absolute 2.53 0.70 - 3.10 10*3/mm3 07/15/2025 10:48 AM EDT [facility] Monocytes, Absolute 0.46 0.10 - 0.90 10*3/mm3 07/15/2025 10:48 AM EDT [facility] Eosinophils, Absolute 0.21 0.00 - 0.40 10*3/mm3 07/15/2025 10:48 AM EDT [facility] Basophils, Absolute 0.01 0.00 - 0.20 10*3/mm3 07/15/2025 10:48 AM EDT [facility] Immature Grans, Absolute 0.01 0.00 - 0.05 10*3/mm3 07/15/2025 10:48 AM EDT [facility] Blood Venipuncture / Unknown 07/15/2025 10:46 AM EDT 07/15/2025 10:46 AM EDT Dhara Delaney NEEDLE PUNCH MACHINE OPERATOR HELPER LAB BLOOD ORDERABLES Final Result [facility]
[address] [place] [address], * Comprehensive Metabolic Panel (07/15/2025 10:46 AM EDT) Glucose 87 65 - 99 mg/dL 07/15/2025 11:31 AM EDT [facility] BUN 13.4 6.0 - 20.0 mg/dL 07/15/2025 11:31 AM EDT [facility] Creatinine 0.83 0.57 - 1.00 mg/dL 07/15/2025 11:31 AM EDT [facility] Sodium 138 136 - 145 mmol/L 07/15/2025 11:31 AM EDT [facility] Potassium 3.6 3.5 - 5.2 mmol/L 07/15/2025 11:31 AM [facility] Comment:Slight hemolysis det ected by analyzer. Result may be falsely elevated. Chloride 102 98 - 107 mmol/L 07/15/2025 11:31 AM [facility] CO2 26.0 22.0 - 29.0 mmol/L 07/15/2025 11:31 AM [facility] Calcium 8.9 8.6 - 10.5 mg/dL 07/15/2025 11:31 AM [facility] Total Protein 6.6 6.0 - 8.5 g/dL 07/15/2025 11:31 AM [facility] Albumin 4.1 3.5 - 5.2 g/dL 07/15/2025 11:31 AM [facility] ALT (SGPT) 25 1 - 33 U/L 07/15/2025 11:31 AM [facility] AST (SGOT) 21 1 - 32 U/L 07/15/2025 11:31 AM [facility] Alkaline Phosphatase 107 39 - 117 U/L 07/15/2025 11:31 AM [facility] Total Bilirubin 0.3 0.0 - 1.2 mg/dL 07/15/2025 11:31 AM [facility] Globulin 2.5 gm/dL 07/15/2025 11:31 AM [facility] Comment:Calculated Result A/G Ratio 1.6 g/dL 07/15/2025 11:31 AM [facility] BUN/Creatinine Ratio 16.1 7.0 - 25.0 07/15/2025 11:31 AM [facility] Anion Gap 10.0 5.0 - 15.0 mmol/L 07/15/2025 11:31 AM [facility] eGFR 86.5 >60.0 mL/min/1.7 3 07/15/2025 11:31 AM [facility] Blood Venipuncture / Unknown 07/15/2025 10:46 AM EDT 07/15/2025 10:46 AM EDT Narrative [facility] - 07/15/2025 11:31 AM EDT GFR [...] Delaney APRN LAB BLOOD ORDERABLES Final Result [facility]
[address] [place] [address], * LABS SCANNED (07/06/2025) Only the most recent of2 resultswithin the time period is included. Stephanie Olivera APRN LAB BLOOD ORDERABLES Final Result from Last 3 Months Insurance PPO Care Teams Beauty Culturist Relationship Specialty Start Date End Date Stephanie Olivera APRN [address] [place] [address] [facility] [place] [address] PCP - General Family Medicine 10/22/24
--- OUTSIDE RECORDS SUMMARY | 2025-08-11 06:43 | XMS_ITS | Continuity of Care Document ---
Author Organization [facility] ANA CRISTINA Mullins [place] Address [address] [facility] [place] [address] Assessment No assessment recorded. Plan of Treatment Reminders Order Date Submit Date Provider Last Modified By Organization Details Last Modified Time Details Appointments DERM VISIT 026 10:10AM ORBERT COLEMAN CASING WRINGER OPERATOR Not available Not available Not available Lab None recorde d. Referral None recorde d. Procedures None recorde d. Surgeries None recorde d. Imaging None recorde d. Medication Orders None recorde d. Patient TargetsNo targets recorded. Patient InstructionsNo instructions recorded. Reason for Referral None Reported. Procedures Surgical History Date Name Laterality Status Provider Name and Address Organization Details Recorded Time 07/29/20 25 DAK - Cryo AK completed JAILYN MARION [address] [place] [address], [id number] 07/29/2025 08:09:16 06/17/20 25 Destruction Premalignant Lesion(s) completed Latoya Alegria [facility] 06/17/2025 10:48:36 Imaging Results None recorded. Procedure Notes None recorded. Medical Equipment None Reported. Allergies No known drug allergies Medications Name Sig Start Date Stop Date Status Note LastModified by Organization Details LastModified Time Effexor 50 mg tablet Take 1 tablet twice a day by oral route. active Not Available Not Available No t Available tamoxifen 20 mg tablet Take 1 tablet every day by oral route. active Not Available Not Available No t Available loratadine active Not Available Not Av ailable Not Available Mounjaro active Not Available Not Avai lable Not Available Vitals None Recorded Social History Question Answer Notes LastModified by Organizat ion Details LastModified Time Tobacco Smoking Status Never Smoker Jose BravoCONOR Lucio [facility] 07/29/2025 07:58:23 Sunscreen Use? Yes Informatio n not available 07/29/2025 Tanning Bed Use No Informati on not available 07/29/2025 What Was The Date Of Your Most Recent Tobacco Screening? 07/29/2025 Information not available 07/29/2025 Sex: Female Functional Status Question Answer Note LastModified by Organization D etails LastModified Time What is your level of alcohol consumption? None Information not available 07/29/2025 Mental Status None recorded. Family History Nothing Reported. Medical History Condition Response Varicose Veins Y Autoimmune disease N Skin Problems N Squamous Cell Carcinoma N Basal Cell Carcinoma N Skin Cancer N Eczema N Melanoma N Other Skin Condition N Acne N Gynecological HistoryNo gynecological history recorded. Obstetrics History GPAL:G 0 P 0 0 0 0 Past Encounters Encounter ID Performer Location Encounter Start Date Encounter Closed Date Diagnosis/Indication Diagnosis SNOMED-CT Code Diagnosis ICD10 Code Diagnosis IMO Codes Diagnosis Note [id number] JAILYN MARION [place] [address] [place] [address] 07/29/2025 07:45:14 07/29/2025 08:24:12 Actinic keratosis [id number] L57.0 [address]01 The nature of the diagnosis was discussed. Will treat with LN2. Wound care with vaseline starting tonight. Apply nightly x 7 days.Pnt just had her skin exam last month. The AK treated on the Right forearm is clear with JAMIN.Did let pnt know the area on the chest today may blister and crust over-pnt's son is getting on Saturday but she still wanted to do tx today. Health Concerns Section Related Observation LastModified by Organization Detai ls LastModified Time None Recorded Concern Status LastModified by Organization Details LastModified Time None Recorded Payers Encounter Date Sequence Insurance Name Policy Number Policy Leahy Covered Member ID Leahy Member ID Guarantor Name 07/29/2025 1 [place] [id number] Elroy Gregory [id number] Martha Gregory Notes Date Note Type Note Provider Name and Address Organization Details Recorded Time 07/29/2025 text/html ROS as noted in the HPI spot of concernlocation: chestduration: 4-5 weekstx: n/areports: pt had radiation and chemo this last year, spots are raised, scaly, and red JAILYN MARION [address] [place], [address], [facility] 07/29/2025 08:10:18 OBGyn Episode No OBEpisode recorded.
--- OUTSIDE RECORDS SUMMARY | 2025-08-11 06:43 | XMS_ITS | Encounter Summary ---
[facility] Organization [facility] Address [address] [place] [id number] Care Team Providers Care Hose Inspector Name Role Phone Joselin Stephanie Tish DAMAGED FREIGHT INSPECTOR Primary Care Provid er Reason for Visit * Reason Comments Med Refill Encounter Details Date Type Department Care Team (Late st Contact Info) Description 08/03/2025 Refill [facility] HEMATOLOGY & ONCOLOGY [address] [facility] [address] [place] [address] Dhara Delaney APRN [address] [facility] [address] [place] [address] Malignant neoplasm of left breast in female, [...] on file documented as of this encounter Miscellaneous Notes * Telephone Encounter - Yeni Cruz MA - 08/03/2025 8:12 AM EDT RX sent & pharmacy rec'd [id number] #30 w/5 RF documented in this encounter Plan of Treatment Upcoming Encounters Date Type Department Care Team (Late st Contact Info) Description 10/15/2025 11:00 AM EST Office Visit [facility] HEMATOLOGY & ONCOLOGY [address] [facility] [address] [place] [address] Dhara Delaney, DAMAGED FREIGHT INSPECTOR [address] [facility] [address] [place] [address] 11/17/2025 1:00 PM EST Office Visit [facility] ENDOCRINOLOGY [address] [place] [address] Maria Guadalupe Escamilla MD [address] [place] [address] 11/18/2025 10:00 AM EST Office [facility] [address] [place] [address] Gissel Blum, DAMAGED FREIGHT INSPECTOR [address] [place] [address] 02/03/2026 10:00 AM EDT Office Visit [facility] ENDOCRINOLOGY [address] [place] [address] Maria Guadalupe Escamilla MD [address] [place] [address] 08/03/2026 9:00 AM EDT Office Visit [facility] GENERAL SURGERY [address] [place] [address] Frandy Menendez MD [address] [facility] [address] [place] [address] documented as of this encounter Visit Diagnoses Diagnosis Malignant neoplasm of left breast in female, estrogen receptor positive, unspecified site of breast documented in this encounter Additional Health Concerns Assessment Noted Time PHQ-2 Depression Total Score: 2 04/07/20 24 2:53 PM EDT documented as of this encounter Care Teams Hose Inspector Relationship Specialty Start Date End Date Stephanie Olivera APRN [address] [facility] [address] [email or web address] [address] [place] [address] PCP - General Family Medicine 10/22/24 documented as of this encounter
--- OUTSIDE RECORDS SUMMARY | 2025-08-11 06:43 | XMS_ITS | Encounter Summary ---
Author Organization [facility] Address [address] [place] [address] Care Team Providers Care Senior Bioinformatics Scientist Name Role Phone Stephanie Olivera APRN Primary [...] Description 10/15/2025 11:00 AM EST Office Visit [facility] HEMATOLOGY & ONCOLOGY [address] [facility] [address] [place] [address] Dhara Delaney APRN [address] [facility] [address] [place] [address] 11/17/2025 1:00 PM EST Office Visit [facility] ENDOCRINOLOGY [address] [place] [address] Maria Guadalupe Escamilla MD [address] [place] [address] 11/18/2025 10:00 AM EST Office Visit [facility] [address] [place] [address] Gissel Blum APRN [address] [place] [address] 02/03/2026 10:00 AM EDT Office Visit [facility] ENDOCRINOLOGY [address] [place] [address] Maria Guadalupe Escamilla MD [address] [facility] [address] [place] [address] 08/03/2026 9:00 AM EDT Office Visit [facility] GENERAL SURGERY [address] [place] [address] Frandy Menendez MD [address] [facility] 202 [place] [address] documented as of this encounter Visit Diagnoses Not on filedocumented in this encounter Additional Health Concerns Assessment Noted Time PHQ-2 Depression Total Score: 2 04/07/20 24 2:53 PM EDT documented as of this encounter Care Teams Senior Bioinformatics Scientist Relationship Specialty Start Date End Date Stephanie Olivera APRN [address] [facility] [address] [place] [address] PCP - General Family Medicine 10/22/24 documented as of this encounter
--- OUTSIDE RECORDS SUMMARY | 2025-08-11 06:43 | XMS_ITS | Continuity of Care Document ---
Author Organization [facility] DERMATOLOGY [facility] Address [address] [place] [address] Assessment Encounter Date Assessment Date Assessment LastModified by Organization Details LastModified Time 06/17/2025 06/17/2025 F/U ANNUALLY FSE Not available 06/17/2025 10:52:55 Plan of Treatment Reminders Order Date Submit Date Provider Last Modified By Organization Details Last Modified Time Details Appointments DERM VISIT 026 10:10AM ROBERT COLEMAN BIN PACKER Not available Not available Not available Lab [...] DAK - Cryo AK completed JAILYN MARION [address] [place], [address], [facility] 07/29/2025 08:09:16 06/17/20 25 Destruction Premalignant Lesion(s) completed Latoya Alegria [facility] 06/17/2025 10:48:36 Imaging Results None recorded. Procedure [...] Time Tobacco Smoking Status Never Smoker Jose Cordon [facility] 07/29/2025 07:58:23 Sunscreen Use? Yes [...] ICD10 Code Diagnosis IMO Codes Diagnosis Note [id number] ROBERT COLEMAN APRN DERMATOLO GY EAST [address] [place] [address] 06/17/2025 10:24:20 06/17/2025 10:53:28 Actinic keratosis 461017557 L57.0 57212 RIGHT FOREARMDIS CUSSED [place] OPTIONS INCLUDING CRYO, 5FU, TOPICALSCR YO X 1RISKS OF CRYO SURGERY DISCUSSED; POST OP CARE INSTRUCTIO NS PROVIDED. VERBAL CONSENT TO TREAT GIVEN BY PATIENT. RECHECK IF PERSISTING Solar lentigo 70018450 L 81.4 1105 RECOMMEND SUN PROTECTIVE CLOTHING AND EQUATE SPORT SUNSCREEN AND CERAVE AM SUNSCREEN LOTION OTC DAILYDISCU SSED RISKS INHERENT TO CHEMICAL SUNSCREENS INCLUDING PHOTOALLER GIC, PHOTOTOXIC , ALLERGIC CONTACT AND IRRITANT CONTACT DERMATITIS .BENIGN APPEARANCE , PT REASSURED & ADVISED TO RTC WITH ANY CHANGES Multiple b enign melanocytic nevi 469912240 D22.9 [id number] HIGH NUMBER MULTIPLE SIMILARBEN IGN APPEARANCE ; PT REASSUREDR ECOMMEND ANNUAL FSE Angioma serpiginosum 494 84214 L81.7 1222 BENIGN APPEARANCE ; PT REASSURED Raised drake orrheic keratosis [id number] 77912 L82.1 [id number] BENIGN APPEARANCE ; PT REASSURED Senile angioma 0337333 D 18.01 197808 BENIGN APPEARANCE ; PT REASSURED Syringoma 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 9 35938 BENIGN APPEARANCE ; PT REASSURED Multiple skin tags 14835 7009 L91.8 [id number] BENIGN APPEARANCE ; PT REASSURED Immunosuppression 391821 05 D84.9 [id number] HERCEPTINH /O BREAST CA, FINISHED CHEMO 03/2025 Health Concerns Section Related Observation LastModified by Organization Detai ls LastModified Time None Recorded Concern Status LastModified by Organization Details LastModified Time None Recorded Payers Encounter Date Sequence Insurance Name Policy Number Policy Leahy Covered Member ID Leahy Member ID Guarantor Name 06/17/2025 1 [facility] (O) [id number] Elroy Gregory [id number] Martha Gregory Notes Date Note Type Note Provider Name and Address Organization Details Recorded Time 06/17/2025 text/html ROS as noted in the HPI NEW PATIENT - PREVIOUSLY SEEN BY [facility] OF BREAST CANCER - S/P CHEMO, IMMUNOTHERAPY 1) FSE- PT DESIRES TO HAVE SPOTS ON ENTIRE BODY EXAMINED TODAY. HAS HAD MOLE ON BACK REMOVED AT [facility] . NO H/O SKIN CA 2) PT C/O RED LESION ON RIGHT FOREARM X6 MONGHTS (-)ITCH/BLEED/PAIN. OTHERS TREATED WITH CRYO IN PAST Denies any other new, changing, or bleeding lesions, or other rashes. Patient feels well today and in a good mood. No family history of melanoma. ROBERT COLEMAN, BIN PACKER [address] [place], [address], [place] [facility] 06/17/2025 13:25:41 OBGyn Episode No OBEpisode recorded.
--- OUTSIDE RECORDS SUMMARY | 2025-08-11 06:43 | XMS_ITS | Encounter Summary ---
Author Organization [facility] Address [address] [place] [address] Care Team Providers Care Sew On Operator Name Role Phone Stephanie Olivera APRN Primary Care Provid er Encounter Details Date Type Department Care Team (Latest Contact Info) Description 07/28/2025 Travel Social History Tobacco Use Types Packs/Day [...] Description 10/15/2025 11:00 AM EST Office Visit [facility] HEMATOLOGY & ONCOLOGY [address] [facility] [address] [place] [address] Dhara Delaney APRN [address] [facility] [address] [place] [address] 11/17/2025 1:00 PM EST Office Visit [facility] ENDOCRINOLOGY [address] [place] [address] Maria Guadalupe Escamilla MD [address] [place] [address] 11/18/2025 10:00 AM EST Office [facility] [address] [place] [address] Gissel Blum APRN [address] [place] [address] 02/03/2026 10:00 AM EDT Office Visit [facility] ENDOCRINOLOGY [address] [place] [address] Maria Guadalupe Escamilla MD [address] [facility] [address] [place] [address] 08/03/2026 9:00 AM EDT Office Visit [facility] GENERAL SURGERY [address] [place] [address] Frandy Menendez MD [address] [facility] [address] [place] [address] documented as of this encounter Visit Diagnoses Not on filedocumented in this encounter Additional Health Concerns Assessment Noted Time PHQ-2 Depression Total Score: 2 04/07/20 24 2:53 PM EDT documented as of this encounter Care Teams Sew On Operator Relationship Specialty Start Date End Date Stephanie Olivera APRN [address] [facility] [address] [place] [address] PCP - General Family Medicine 10/22/24 documented as of this encounter
--- OUTSIDE RECORDS SUMMARY | 2025-08-11 06:43 | XMS_ITS ---
Author Organization 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 Kellogg Left diagnostic mammogram on 06/2025 with BI-RADS 3 Bilateral diagnostic mammogram in December 2025 Routine self breast exams Follow-up with Dr. Kellogg Current Treatment and Therapy Plans OP BREAST [...]
--- OUTSIDE RECORDS SUMMARY | 2025-08-11 06:43 | XMS_ITS | Data Portability ---
Author Organization [facility] Mahin guillory, [facility] CLOS[facility] Address [address] [facility] [address] [place] [address] Assessment Encounter Date Assessment Date Assessment LastModified by Organization Details LastModified Time 06/17/2025 06/17/2025 F/U ANNUALLY FSE Not available 06/17/2025 10:52:55 Plan of Treatment Reminders Order Date Submit Date Provider Last Modified By Organization Details Last Modified Time Details Appointments DERM VISIT 026 10:10AM ROBERT COLEMAN APRN Not available Not available Not available Lab [...] - Cryo AK completed JAILYN MARION [address] [place], [address], [facility] 07/29/2025 08:09:16 06/17/20 25 Destruction Premalignant Lesion(s) completed Latoya Alegria [facility] 06/17/2025 10:48:36 Imaging Results None recorded. [...] Smoking Status Never Smoker Jose Cordon [facility]ail [facility] 07/29/2025 07:58:23 Sunscreen Use? Yes [...] Medical History Condition Response Varicose Veins Y Skin Problems N Autoimmune disease N Squamous Cell Carcinoma N Basal Cell Carcinoma N Skin Cancer N Eczema N Other Skin Condition N Melanoma N Acne N Gynecological HistoryNo gynecological history recorded. Obstetrics History GPAL:G 0 P 0 0 0 0 Past Encounters Encounter ID Performer Location Encounter Start Date Encounter Closed Date Diagnosis/Indication Diagnosis SNOMED-CT Code Diagnosis ICD10 Code Diagnosis IMO Codes Diagnosis Note [id number] ROBERT COLEMAN APRN DERMATDAREK [facility] [address] [place] [address] 06/17/2025 10:24:20 06/17/2025 10:53:28 Actinic keratosis 184801595 L57.0 00799 RIGHT FOREARMDIS CUSSED [place] OPTIONS INCLUDING CRYO, 5FU, TOPICALSCR YO X 1RISKS OF CRYO SURGERY DISCUSSED; POST OP CARE INSTRUCTIO NS PROVIDED. VERBAL CONSENT TO TREAT GIVEN BY PATIENT. RECHECK IF PERSISTING Solar lentigo 90576656 L 81.4 1105 RECOMMEND SUN PROTECTIVE CLOTHING AND EQUATE SPORT SUNSCREEN AND CERAVE AM SUNSCREEN LOTION OTC DAILYDISCU SSED RISKS INHERENT TO CHEMICAL SUNSCREENS INCLUDING PHOTOALLER GIC, PHOTOTOXIC , ALLERGIC CONTACT AND IRRITANT CONTACT DERMATITIS .BENIGN APPEARANCE , PT REASSURED & ADVISED TO RTC WITH ANY CHANGES Multiple b enign melanocytic nevi 020481004 D22.9 [id number] HIGH NUMBER MULTIPLE SIMILARBEN IGN APPEARANCE ; PT REASSUREDR ECOMMEND ANNUAL FSE Angioma serpiginosum 494 32069 L81.7 1222 BENIGN APPEARANCE ; PT REASSURED Raised drake orrheic keratosis 3016679018 38796 L82.4 [id number] BENIGN APPEARANCE ; PT REASSURED Senile angioma 6369964 D 18.01 [id number] BENIGN APPEARANCE ; PT REASSURED 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 9 45707 BENIGN APPEARANCE ; PT REASSURED Multiple skin tags 54652 7009 L91.8 [id number] BENIGN APPEARANCE ; PT REASSURED Immunosuppression 174292 05 D84.9 [id number] HERCEPTINH /O BREAST CA, FINISHED CHEMO 03/2025 [id number] JAILYN MARION [place] [address] [place] [address] 07/29/2025 07:45:14 07/29/2025 08:24:12 Actinic keratosis 624773833 L57.0 93939 The nature of the diagnosis was discussed. [...] by Organization Details LastModified Time None Recorded Advance Directives Directive None Recorded Payers Insurance Date Sequence Insurance Name Policy Number Policy Leahy Covered Member ID Leahy Member ID Guarantor Name 07/29/2025 1 [id number] [id number] Elroy Gregory [id number] Martha Gregory Notes Date Note Type Note Provider Name and Address Organization Details Recorded Time 06/17/2025 text/html ROS as noted in the HPI NEW PATIENT - PREVIOUSLY SEEN BY [facility] OF BREAST CANCER - S/P CHEMO, IMMUNOTHERAPY 1) FSE- PT DESIRES TO HAVE SPOTS ON ENTIRE BODY EXAMINED TODAY. HAS HAD MOLE ON BACK REMOVED AT [facility] . NO H/O SKIN CA 2) PT C/O RED LESION ON RIGHT FOREARM X6 MONGHTS (-)ITCH/BLEED/PAIN. OTHERS TREATED WITH CRYO IN PAST Denies any other new, changing, or bleeding lesions, or other rashes. Patient feels well today and in a good mood. No family history of melanoma. ROBERT COLEMAN, SWING RIDE OPERATOR [address] [place], [address], [facility] 06/17/2025 13:25:41 07/29/2025 text/html ROS as noted in the HPI spot of concernlocation: chestduration: 4-5 weekstx: n/areports: pt had radiation and chemo this last year, spots are raised, scaly, and red JAILYN MARION [address] [place], [address], [facility] 07/29/2025 08:10:18 OBGyn Episode No OBEpisode recorded.
--- OUTSIDE RECORDS SUMMARY | 2025-08-11 06:43 | XMS_ITS | Encounter Summary ---
[facility] Organization [facility] Address [address] [place] [address] Care Team Providers Care Maintenance Fitter Name Role Phone JoselinJessicaah Tish ELDER Primary Care Provid er Reason for Visit * Reason Onset Date Comments Med Refill 07/30/2025 Encounter Details Date Type Department Care Team (Late st Contact Info) Description 07/30/2025 Refill [facility] ENDOCRINOLOGY [address] [facility] [address] [place] [address] Maria Guadalupe Escamilla MD [address] [facility] [address] [place] [address] Social History Tobacco Use Types Packs/Day Years [...] encounter Miscellaneous Notes * Telephone Encounter - Bozena Kidd MA - 07/30/2025 2:45 PM EDT Rx Refill Note Requested Prescriptions Pending Prescriptions Disp Refills Tirzepatide (MOUNJARO) 2.5 MG/0.5ML solution auto-injector 6 mL 0 Sig: Inject 2.5 mg under the skin into the appropriate area as directed 1 (One) Time Per Week. Last office visit with prescribing clinician: 07/16/2025 Last telemedicine visit with prescribing clinician: Visit date not found Next office visit with prescribing clinician: 11/17/2025 Would you like a call back once the refill request has been completed: [] Yes [] No If the office needs to give you a call back, can they leave a voicemail: [] Yes [] No Bozena Kidd MA 07/30/25, 14:45 EDT documented in this encounter Plan of Treatment Upcoming Encounters Date Type Department Care Team (Late st Contact Info) Description 10/15/2025 11:00 AM EST Office Visit [facility] HEMATOLOGY & ONCOLOGY [address] [facility] [address] [place] [address] Dhara Delaney, HOME CARE ASSOCIATE [address] [facility] [address] [place] [address] 11/17/2025 1:00 PM EST Office Visit [facility] ENDOCRINOLOGY [address] [place] [address] Maria Guadalupe Escamilla MD [address] [place] [address] 11/18/2025 10:00 AM EST Office Visit [facility] [address] [place] [address] Gissel Blum, HOME CARE ASSOCIATE [address] [place] [address] 02/03/2026 10:00 AM EDT Office Visit [facility] ENDOCRINOLOGY [address] [facility] [address] [place] [address] Maria Guadalupe Escamilla MD [address] [facility] [address] [place] [address] 08/03/2026 9:00 AM EDT Office Visit [facility] GENERAL SURGERY [address] [place] [address] Frandy Menendez MD [address] [facility] [address] [place] [address] documented as of this encounter Visit Diagnoses Not on filedocumented in this encounter Additional Health Concerns Assessment Noted Time PHQ-2 Depression Total Score: 2 04/07/20 24 2:53 PM EDT documented as of this encounter Care Teams Maintenance Fitter Relationship Specialty Start Date End Date Stephanie Olivera APRN [address] [facility] [address] [place] [address] PCP - General Family Medicine 10/22/24 documented as of this encounter
--- OUTSIDE RECORDS SUMMARY | 2025-08-11 06:43 | XMS_ITS | Encounter Summary ---
[facility] Address [address] [place] [address] Care Team Providers Care Wet Process Miller Head Assistant Name Role Phone Stephanie Olivera APRN Primary Care Provid er Encounter Details Date Type Department Care Team (Late st Contact Info) Description 08/02/2025 Prior Authorization [facility] ENDOCRINOLOGY [address] [facility] [address] [place] [address] Ade Becker Social History Tobacco Use Types Packs/Day Years [...] encounter Miscellaneous Notes * Telephone Encounter - Ade Becker - 08/03/2025 9:43 AM EDTSummary: PA RESPONSE FOR DEXCOM G7 Your PA has been resolved, no additional PA is required. For further inquiries please contact the number on the back of the member prescription card. (Message [phone]) Drug Dexcom G7 Sensor ePA cloud logo Form [employer] Electronic PA Form (2016 NCPDP) * Telephone Encounter - Ade Becker - 08/02/2025 10:14 AM EDT PA SUBMITTED VIA CMM FOR DEXCOM G7 SENSORS documented in this encounter Plan of Treatment Upcoming Encounters Date Type Department Care Team (Late st Contact Info) Description 10/15/2025 11:00 AM EST Office Visit [facility] HEMATOLOGY & ONCOLOGY [address] [facility] [address] [place] [address] Dhara Delaney APRN [address] [facility] [address] [place] [address] 11/17/2025 1:00 PM EST Office Visit [facility] ENDOCRINOLOGY [address] [place] [phone] Maria Guadalupe Escamilla MD [address] [place] [address] 11/18/2025 10:00 AM EST Office Visit [facility] [address] [place] [address] Gissel Blum APRN [address] [place] [address] 02/03/2026 10:00 AM EDT Office Visit [facility] ENDOCRINOLOGY [address] [place] [address] Maria Guadalupe Escamilla MD [address] [place] [address] 08/03/2026 9:00 AM EDT Office Visit [facility] GENERAL SURGERY [address] [place] [address] Frandy Menendez MD [address] [place] [address] documented as of this encounter Visit Diagnoses Not on filedocumented in this encounter Additional Health Concerns Assessment Noted Time PHQ-2 Depression Total Score: 2 04/07/20 24 2:53 PM EDT documented as of this encounter Care Teams Wet Process Miller Head Assistant Relationship Specialty Start Date End Date Stephanie Olivera APRN [address] [facility] [address] [place] [address] PCP - General Family Medicine 10/22/24 documented as of this encounter
--- OUTSIDE RECORDS SUMMARY | 2025-08-11 06:43 | XMS_ITS | Encounter Summary ---
Author Organization [facility] Address [address] [place] [address] Care Team Providers Care Truck Washer Name Role Phone Stephanie Olivera APRN Primary [...] Description 10/15/2025 11:00 AM EST Office Visit [facility] HEMATOLOGY & ONCOLOGY [address] [facility] [address] [place] [address] Dhara Delaney APRN [address] [facility] [address] [place] [address] 11/17/2025 1:00 PM EST Office Visit [facility] ENDOCRINOLOGY [address] [place] [address] Maria Guadalupe Escamilla MD [address] [place] [address] 11/18/2025 10:00 AM EST Office Visit [facility] [address] [place] [address] Gissel Blum APRN [address] [place] [address] 02/03/2026 10:00 AM EDT Office Visit [facility] ENDOCRINOLOGY [address] [place] [address] Maria Guadalupe Escamilla MD [address] [facility] [address] [place] [address] 08/03/2026 9:00 AM EDT Office Visit [facility] GENERAL SURGERY [address] [place] [address] Frandy Menendez MD [address] [facility] [address] [place] [address] documented as of this encounter Visit Diagnoses Not on filedocumented in this encounter Additional Health Concerns Assessment Noted Time PHQ-2 Depression Total Score: 2 04/07/20 24 2:53 PM EDT documented as of this encounter Care Teams Truck Washer Relationship Specialty Start Date End Date Stephanie Olivera APRN [address] [facility] [address] [place] [address] PCP - General Family Medicine 10/22/24 documented as of this encounter
== END 2025-08-11 23:59 | disposition home or self-care (01) ==
LOC: RAD 06:41
PROVIDERS: PCP Nurse Practitioner Family; Visit Provider Nurse Practitioner Family
DX: S83.281A Other tear of lateral meniscus, current injury, right knee, initial encounter (principal); S83.241A Other tear of medial meniscus, current injury, right knee, initial encounter; M94.8X6 Other specified disorders of cartilage, lower leg
CPT/HCPCS: 73721

== ENCOUNTER 2025-10-19 07:44 | Outpatient (CLI) | payer BC, SELFPAY ==
--- OUTSIDE RECORDS SUMMARY | 2024-08-04 04:40 | XMS_ITS | Encounter Summary ---
[facility] [address] [place] [address] Care Team Providers Care Program Project Analyst Name Role Phone Dalila Willoughby Primary Care Provider Reason for Visit * Auth/Cert (Routine) Specialty Diagnoses / Procedures Referred By Contac t Referred To Contact Diagnoses Malignant neoplasm of unspecified site of left female breast Referral ID Status Reason Start Date Expiration Date Visits Re quested Visits Authorized [id number] 1 1 Encounter Details Date Type Department Care Team (Late st Contact Info) Description 08/04/2024 5:40 AM EDT Hospital Encounter [facility] [place] [address] [address] Social History Tobacco Use Types Packs/Day Years Used Date Smoking Tobacco: Never Smokeless Tobacco: Never Alcohol Use Standard Drinks/Week Comments Never 0 (1 standard drink = 0.6 oz pur e alcohol) Abuse Screen Answer Date Recorded Feels Unsafe at Home or Work/School no 04/01/2024 Feels Threatened by Someone no 02/2024 Does Anyone Try to Keep You From Having Contact with Others or Doing Things Outside Your Home? no 04/01/2024 Physical Signs of Abuse Present no 04/01/2024 PHQ-2 Answer Date Recorded Patient Health Questionnaire-9 Score 0 12/03/2024 Comments No Sex and Gender Information Value Date Recorded Sex Assigned at Female 07/09/2025 10:51 AM EDT Legal Sex Female 9:46 AM EDT Gender Identity Not on file Sexual Orientation Not on file documented as of this encounter Plan of Treatment Upcoming Encounters Date Type Department Care Team (Late st Contact Info) Description 11/18/2025 10:00 AM EST Office [facility] [address] [facility] [place] [address] Gissel Blum APRN [address] [place] [address] 11/23/2025 10:00 AM EST Office Visit [facility] [address] [facility] [address] [place] [phone] Gonzalo Nuñez MD [address] [facility] [address] [place], [place] [id number] 12/14/2025 2:45 PM EST Office Visit [facility] ENDOCRIN[facility] [address] [place] [address] Maria Guadalupe Escamilla MD [address] [place] [address] 01/13/2026 11:00 AM EDT Office Visit [facility] HEMATOLOGY & ONCOLOGY [address] [facility] [address] [place] [phone] Rocio Kellogg MD [address] [facility] [address] [place] [address] 01/14/2026 11:00 AM EDT Office Visit [facility] [address] [place] [address] Jose Armando Cisse MD [address] [place] [address] 01/20/2026 10:30 AM EDT Appointment [facility] [address] [facility] [address] [place] [address] 08/03/2026 9:00 AM EDT Office Visit [facility] GENERAL SURGERY [address] [place] [phone] Frandy Menendez MD [address] [place] [address] documented as of this encounter Visit Diagnoses Not on filedocumented in this encounter Additional Health Concerns Assessment Noted Time PHQ-2 Depression Total Score: 2 04/07/20 24 2:53 PM EDT documented as of this encounter Care Teams Program Project Analyst Relationship Specialty Start Date End Date Dalila Willoughby PA [address] [place] [address] PCP - General Physician Inserter 05/07/23 10/21/24 documented as of this encounter
--- OUTSIDE RECORDS SUMMARY | 2024-11-17 14:37 | XMS_ITS | Encounter Summary ---
Author Organization [facility] Address [address] [id number] Care Team Providers Care Laboratory Worker Name Role Phone Stephanie Olivera APRN Primary Care Provid er Reason for Visit * Diagnostic Imaging (Routine) - Closed Specialty Diagnoses / Procedures Referred By Contac t Referred To Contact Radiology Diagnoses Nontoxic multinodular goiter Procedures US Thyroid Maria Guadalupe Escamilla MD [address] [employer] [facility] [address] [place] [address] Phone: tel: fax: Referral ID Status Reason Start Date Expiration Date Visits Re quested Visits Authorized [id number] Closed 11/17/2024 11/17/2025 1 1 Encounter Details Date Type Department Care Team (Late st Contact Info) Description 11/17/2024 2:37 PM EST Hospital Encounter [facility] ENDOCRINOLOGY [address] [place] [phone] Social History Tobacco Use Types Packs/Day Years [...] [facility] [address] [place] [phone] Gissel Blum, CIRCUIT BOARD REPAIR TECHNICIAN [address] [place] [address] 11/23/2025 10:00 AM EST Office Visit [facility] CARDIOLOGY [address] [facility] [address] [place] [phone] Gonzalo Nuñez MD [address]20 [facility] [address] [place] [address] 12/14/2025 2:45 PM EST Office Visit [facility] ENDOCRINOLOGY [address] [place] [phone] Maria Guadalupe Escamilla MD [address] [place] [address] 01/13/2026 11:00 AM EDT Office Visit [facility] HEMATOLOGY & ONCOLOGY [address] [place] [address] Rocio Kellogg MD 1700 [facility] [address] [place] [address] 01/14/2026 11:00 AM EDT Office Visit [facility] NEUROLOGY [address] [place] [address] Jose Armando Cisse MD [address] [place] [address] 01/20/2026 10:30 AM EDT Appointment [facility] 1760 [facility] [address] [place] [address] 08/03/2026 9:00 AM EDT Office Visit [facility] GENERAL SURGERY [address] [place] [address] Frandy Menendez MD 1760 [facility] [address] [place] [address] documented as of this encounter Procedures Procedure Name Priority Date/Time Associated Diagnosis Comments US THYROID Routine 11/17/2024 2:37 PM EST Nontoxic multinodular goiter documented in this encounter Results * US Thyroid (11/17/2024 2:37 PM EST) Narrative SYSTEMGENERATED, DOCUMENTATION - 11/17/2024 2:37 PM EST Please see performing physician's note for result. us Maria Guadalupe Box MD IMG US ORDERABLES Final Result documented in this encounter Visit Diagnoses Not on filedocumented in this encounter Additional Health Concerns Assessment Noted Time PHQ-2 Depression Total Score: 2 04/07/20 24 2:53 PM EDT documented as of this encounter Care Teams Laboratory Worker Relationship Specialty Start Date End Date Stephanie Olivera APRN [address] [facility] [address] [place] [address] PCP - General Family Medicine 10/22/24 documented as of this encounter
--- OUTSIDE RECORDS SUMMARY | 2025-09-10 10:00 | XMS_ITS | Encounter Summary ---
Author Organization [facility] Address [address] [place] [address] Care Team Providers Care Air Tucker Name Role Phone Stephanie Olivera APRN Primary Care Provid er Reason for Visit * Reason Comments Nontoxic multinodular goiter Controlled type 2 diabetes mellitus with out complication Follow up Encounter Details Date Type Department Care Team (Late st Contact Info) Description 09/10/2025 10:00 AM EST Office Visit [facility] ENDOCRINOLOGY [address] [facility] [address] [place] [phone] Maria Guadalupe Escamilla MD [address] [address] Controlled type 2 diabetes mellitus without complication, without long-term current use of insulin (Primary Dx); Nontoxic multinodular goiter Social History Tobacco Use Types Packs/Day Years [...] Sign Reading Time Taken Comments Blood Pressure 110/70 09/10/2025 9:50 AM EST Pulse 84 09/10/2025 9:50 AM EST Temperature - - Respiratory Rate - - Oxygen Saturation 99% 09/10/2025 9:50 AM EST Inhaled Oxygen Concentration - - Weight 108 kg (237 lb 3.2 oz) 09/10/2025 9:50 AM EST Height 165.1 cm (5' 5 ) 09/10/2025 9:50 AM EST Body Mass Index 39.47 09/10/2025 9:50 AM EST documented in this encounter Progress Notes * Maria Guadalupe Escamilla MD - 09/10/2025 10:00 AM EST Images from the original note were not included. Nontoxic multinodular goiter and Controlled type 2 diabetes mellitus without complication (Follow up) Subjective Martha Gregory is a 50 y.o. female. she is being seen for follow-up Thyroid nodules dx in 2020. Patient has a positive FH of metastatic papillary thyroid cancer, she has started with u/s screening in 2020. Ultrasound revealed 3-4 mm small nodules. Yearly u/s reports reviewed. The largest nodule measures 5 mm. Abnormal thyroid function test - took [facility] [employer] thyroid for a year for abnormal free thyroxine index(back in 2022). No change in sx and she stopped it. She has hx of breast cancer, s/p surgery, XRT and on immunotherapy now. Patient presented to the visit after developing hyperglycemia 06/2025. She reported episodes of blurry vision and shaky spells when the glucose drops to 88. She had tested during blurry vision episode and glucose was 200 on several occasions. In the past she has tried metformin and discontinued due to GI side effects. Semaglutide caused severe constipation. She has started Mounjaro in 06/2025 and tolerated it well/ Glucose looks good but she didn't loose any weight. She has constipation. Her joint pains are improved significantly. Medications: Current Outpatient Medications: albuterol sulfate HFA 108 (90 Base) MCG/ACT inhaler, Inhale 2 puffs Every 4 (Four) Hours As Needed for Wheezing or Shortness of Air., Disp: 18 g, Rfl: 0 Continuous Glucose Sensor (Dexcom G7 Sensor) [facility], Use 1 each Every 10 (Ten) Days., Disp: 3 each, Rfl: 11 estradiol (ESTRACE VAGINAL) 0.1 MG/GM vaginal cream, Insert 1 g into the vagina 2 (Two) Times a Week., Disp: 42.5 g, Rfl: 12 ibuprofen (ADVIL,MOTRIN) 800 MG tablet, Take 1 tablet by mouth 3 times a day. (Patient taking differently: Take 1 tablet by mouth 3 (Three) Times a Day As Needed.), Disp: , Rfl: losartan (COZAAR) 25 MG tablet, Take 1 tablet by mouth Daily., Disp: , Rfl: tamoxifen (NOLVADEX) 20 MG chemo tablet, Take 1 tablet by mouth Daily., Disp: 30 tablet, Rfl: 11 venlafaxine XR (EFFEXOR-XR) 150 MG 24 hr capsule, Take 1 capsule by mouth Daily., Disp: 30 capsule,Rfl: 5 Tirzepatide (MOUNJARO) 5 MG/0.5ML solution auto-injector, Inject 5 mg under the skin into the appropriate area as directed 1 (One) Time Per Week., Disp: 6 mL, Rfl: 3 Review of Systems Constitutional: Positive for fatigue and unexpected weight gain. Gastrointestinal: Positive for constipation. Musculoskeletal: Positive for arthralgias, back pain, joint swelling and myalgias. Skin: Positive for rash. Objective Vitals: 09/10/25 0950 BP: 110/70 BP Location: Right arm Patient Position: Sitting Cuff Size: Adult Pulse: 84 SpO2: 99% Weight: 108 kg (237 lb 3.2 oz) Height: 165.1 cm (65 ) Body mass index is 39.47 kg/m??. Physical Exam Vitals reviewed. Constitutional: Appearance: [...] orders placed or performed in visit on 09/10/25 POC Glucose, Blood Collection Time: 09/10/25 9:56 AM Specimen: Blood Result Value Ref Range Glucose 101 70 - 130 mg/dL Lot Number [id number] Expiration Date 03/15/2026 Thyroid ultrasound 11/17/24 Real time high resolution [...] Flow Doppler. It has no artifacts Nodule 3 is located in [...] insulin - Primary Relevant Medications Tirzepatide (MOUNJARO) 5 MG/0.5ML solution auto-injector Other Relevant Orders POC Glucose, Blood (Completed) The nodules are small, 5-6 mm and they are stable compared to previous study. Repeat u/s every 12-18 months New onset diabetes - she has several episode of glucose over 200 which is diagnostic of diabetes. Cont Mounjaro 2.5 mg weekly. She has tried metformin and Ozempic in the past and developed severe diarrhea with the first medication and constipation with Ozempic. CGM downloaded and reviewed: Patient is 99% in range with 1% hypoglycemia. Return in about 3 months (around 12/11/2025). documented in this encounter Plan of Treatment Upcoming Encounters Date Type Department Care Team (Late st Contact Info) Description 11/18/2025 10:00 AM EST Office [facility] [address] [place] [phone] Gissel Blum APRN [address] [place] [address] 11/23/2025 10:00 AM EST Office Visit [facility] CARDIOLOGY [address] [facility] [address] [place] [phone] Gonzalo Nuñez MD [address] [facility] [address] [place] [address] 12/14/2025 2:45 PM EST Office Visit [facility] ENDOCRIN[facility]Y [address] [place] [phone] Maria Guadalupe Escamilla MD [address] [place] [address] 01/13/2026 11:00 AM EDT Office Visit [facility] HEMATOLOGY & ONCOLOGY [address] [facility] [address] [place] [phone] Rocio Kellogg MD [address] [facility] [address] [place] [address] 01/14/2026 11:00 AM EDT Office Visit [facility] NEUROLOG[facility] [address] [place] [phone] Jose Armando Cisse MD [address] [place] [address] 01/20/2026 10:30 AM EDT Appointment [facility] [address] [facility] [address] [place] [address] 08/03/2026 9:00 AM EDT Office Visit [facility] MEDICAL [facility] GENERAL SURGERY [address] [place] [phone] Frandy Menendez MD [address] [facility] [address] [place] [address] documented as of this encounter Procedures Procedure Name Priority Date/Time Associated Diagnosis Comments POCT GLUCOSE, BLD (NON STRIP) Routine 09/10/2025 9:56 AM EST Controlled type 2 diabetes mellitus without complication, without long-term current use of insulin documented in this encounter Results * POC Glucose, Blood (09/10/2025 9:56 AM EST) Glucose 101 70 - 130 mg/dL Lot Number [id number] Expiration Date 03/15/2026 Blood 09/10/2025 9:56 AM EST us Maria Guadalupe Box MD POINT OF CARE TEST ORDERABLES Final Result documented in this encounter Visit Diagnoses Diagnosis Controlled type 2 diabetes mellitus without complication, without long-term current use of insulin- Primary Nontoxic multinodular goiter documented in this encounter Additional Health Concerns Assessment Noted Time PHQ-2 Depression Total Score: 2 04/07/20 24 2:53 PM EDT documented as of this encounter Care Teams Air Tucker Relationship Specialty Start Date End Date Stephanie Olivera APRN [address] [place] [facility] [address] [place] [address] PCP - General Family Medicine 10/22/24 documented as of this encounter
--- OUTSIDE RECORDS SUMMARY | 2025-10-08 13:49 | XMS_ITS | Encounter Summary ---
Author Organization [facility] Address [address] [place] [address] Care Team Providers Care Lead Burner Supervisor Name Role Phone Stephanie Olivera APRN Primary Care Provid er Reason for Referral * MRI/CAT/PET Scan (Emergency) - Closed Specialty Diagnoses / Procedures Referred By Contac t Referred To Contact Radiology Diagnoses Malignant neoplasm of left breast in female, estrogen receptor positive, unspecified site of breast Migraine aura occurring with and without headache Procedures MRI Brain With & Without Contrast MRI Brain With & Without Contrast Rocio Kellogg MD [address] [place] [address] Phone: tel: fax: Referral ID Status Reason Start Date Expiration Date Visits Re quested Visits Authorized [id number] Closed 10/05/2025 01/04/2027 1 1 Reason for Visit * MRI/CAT/PET Scan (Emergency) - Closed Specialty Diagnoses / Procedures Referred By Contac t Referred To Contact Radiology Diagnoses Malignant neoplasm of left breast in female, estrogen receptor positive, unspecified site of breast Migraine aura occurring with and without headache Procedures MRI Brain With & Without Contrast MRI Brain With & Without Contrast Rocio Kellogg MD [address] [place] [address] Phone: tel: fax: Referral ID Status Reason Start Date Expiration Date Visits Re quested Visits Authorized [id number] Closed 10/05/2025 01/04/2027 1 1 Encounter Details Date Type Department Care Team (Late st Contact Info) Description 10/08/2025 1:49 PM EST - 10/08/2025 11:[address] [facility] Hospital Encounter [facility] MRI AT [address] [place] [address] Rocio Kellogg MD [address] [facility] [address] [place] [address] Malignant neoplasm of left breast in female, estrogen receptor positive, unspecified site of breast; Migraine aura occurring with and without headache Discharge Disposition: Home or Self Care Social [...] or Shortness of Air. 18 g 12/04/2024 ALPRAZolam (XANAX) 0.5 MG tabletIndications :Anxiety Take 1 tablet by mouth As Needed for Anxiety (take 1 tablet as needed prior to MRI). 2 tablet 10/06/2025 Continuous Glucose Sensor ([employer] G7 Sensor) miscIndications:C ontrolled type 2 diabetes mellitus without complication, without long-term current use of insulin,Hypoglyce fara Use 1 each Every 10 (Ten) Days. 3 each 11 07/16/2025 estradiol (ESTRACE VAGINAL) 0.1 MG/GM vaginal cream Insert 1 g into the vagina 2 (Two) Times a Week. 42.5 g 12 07/15/2025 ibuprofen (ADVIL,MOTRIN) 800 MG tablet Take 1 tablet by mouth 3 times a day. 11/02/2024 losartan (COZAAR) 25 MG tablet Take 1 tablet by mouth Daily. 11/02/2024 venlafaxine XR (EFFEXOR-XR) 150 MG 24 hr capsuleIndication s:Malignant neoplasm of left breast in female, estrogen receptor positive, unspecified site of breast Take 1 capsule by mouth Daily. 30 capsule 5 07/15/2025 tamoxifen (NOLVADEX) 20 MG chemo tablet Take 1 tablet by mouth Daily. 30 tablet 11 12/03/2024 Tirzepatide (MOUNJARO) 5 MG/0.5ML solution auto-injector Inject 5 mg under the skin into the appropriate area as directed 1 (One) Time Per Week. 6 mL 3 09/10/2025 5 documented as of this encounter Plan of Treatment Upcoming Encounters Date Type Department Care Team (Late st Contact Info) Description 11/18/2025 10:00 AM EST Office Visit [facility] [address] [place] [address] Gissel Blum, JERROD [address] [place] [address] 11/23/2025 10:00 AM EST Office Visit [facility] CARDIOLOGY [address] [place] [phone] Gonzalo Nuñez MD [address] [facility] [address] [place] [address] 12/14/2025 2:45 PM EST Office Visit [facility] ENDOCRINOLOGY [address] [facility] [address] [place] [phone] Maria Guadalupe Escamilla MD [address] [facility] [address] [place] [address] 01/13/2026 11:00 AM EDT Office Visit [facility] HEMATOLOGY & ONCOLOGY [address] [facility] [address] [place] [phone] Rocio Kellogg MD [address] [facility] [address] [place] [address] 01/14/2026 11:00 AM EDT Office Visit [facility] NEUROLOGY [address] [facility] [address] [place] [phone] Jose Armando Cisse MD [address] [facility] [address] [place] [address] 01/20/2026 10:30 AM EDT Appointment [facility] [address] [facility] [address] [place] [address] 08/03/2026 9:00 AM EDT Office Visit [facility] GENERAL SURGERY [address] [place] [phone] Frandy Menendez MD [address] [facility] [address] [place] [address] documented as of this encounter Procedures Procedure Name Priority Date/Time Associated Diagnosis Comments MRI BRAIN W WO CONTRAST STAT 10/08/2025 3:11 PM EST Malignant neoplasm of left breast in female, estrogen receptor positive, unspecified site of breast Migraine aura occurring with and without headache documented in this encounter Results * MRI Brain With & Without Contrast (10/08/2025 3:11 PM EST) Anatomical Region Laterality Modality Head, Neck N/A Magnetic Resonan ce 10/08/2025 3:13 PM EST Impressions 10/08/2025 3:16 PM EST Impression: Normal contrast-enhanced MRI of the brain. Electronically Signed: Mckay Velez MD 10/08/2025 3:16 PM EST Workstation ID: [id number] Narrative 10/08/2025 3:16 PM EST MRI BRAIN W WO CONTRAST Date of Exam: 10/08/2025 2:22 PM EST Indication: migraines/ocular aura's. Comparison: None available. Technique: Routine multiplanar/multisequence sequence images of the brain were obtained before and after the uneventful administration of Vueway. Findings: No acute infarct is present on diffusion weighted sequences. Midline structures appear normal and the craniocervical junction is satisfactory. Harrington-white differentiation appears maintained and there is no evidence of intracranial hemorrhage, mass or mass effect. The ventricles are normal in size and configuration. The orbits are normal. The paranasal sinuses are clear. There is no abnormal brain parenchymal enhancement. Procedure Note Flash Velez MD - 10/08/2025 MRI BRAIN W WO CONTRAST Date of Exam: 10/08/2025 2:22 PM EST Indication: migraines/ocular aura's. Comparison: None available. Technique: Routine multiplanar/multisequence sequence images of the brainwere obtained before and after the uneventful administration of Vueway. Findings: No acute infarct is present on diffusion weighted sequences. Midlinestructures appear normal and the craniocervical junction is satisfactory.Harrington-white differentiation appears maintained and there is no evidence ofintracranial hemorrhage, mass or mass effect. The ventricles are normal in size and configuration. The orbitsare normal. The paranasal sinuses are clear. There is no abnormal brainparenchymal enhancement. IMPRESSION: Impression: Normal contrast-enhanced MRI of the brain. Electronically Signed: Mckay Velez MD 10/08/2025 3:16 PM EST Workstation ID: [id number] Rocio Kellogg MD IM MRI ORDERABLES Final Result documented in this encounter Visit Diagnoses Diagnosis Malignant neoplasm of left breast in female, estrogen receptor positive, unspecified site of breast Migraine aura occurring with and without headache documented in this encounter Administered Medications Inactive Administered Medications - up to 3 most recent administrations Medication Order MAR Action Action Date Dose Rate Site Gadopiclenol (VUEWAY) injection 10 mL 10 mL, Intravenous, Once in Imaging, On Sat10/08/25 at 1457, For 1 dose, Administer undiluted as intravenous bolus at 2 ml/sec. Flush with NS after injection. Given 10/08/2025 2:55 PM EST 10 mL documented in this encounter Additional Health Concerns Assessment Noted Time PHQ-2 Depression Total Score: 2 04/07/20 24 2:53 PM EDT documented as of this encounter Care Teams Lead Burner Supervisor Relationship Specialty Start Date End Date Stephanie Olivera APRN [address] [place] [address] [place] [phone] PCP - General Family Medicine 10/22/24 documented as of this encounter
--- OUTSIDE RECORDS SUMMARY | 2025-10-15 10:55 | XMS_ITS | Encounter Summary ---
[facility] Organization [facility] Address [address] [id number] Care Team Providers Care Neurodiagnostic Technician Name Role Phone Stephanie Olivera APRN Primary Care Provid er Encounter Details Date Type Department Care Team (Late Contact Info) Description 10/15/2025 10:55 AM EST Lab [facility] [address] [place] [address] Malignant neoplasm of left breast in female, estrogen receptor positive, unspecified site of breast; Nontoxic multinodular goiter Social History Tobacco Use [...] Encounters Date Type Department Care Team (Late Contact Info) Description 11/18/2025 10:00 AM EST Office [facility] [address] [place] [address] Gissel Blum, JERROD [address] [place] [address] 11/23/2025 10:00 AM EST Office Visit [facility] CARDIOLOGY [address] [facility] [address] [place] [address] Gonzalo Nuñez MD [address] [facility] [address] [place] [address] 12/14/2025 2:45 PM EST Office Visit [facility] ENDOCRINOLOGY [address] [place] [phone] Maria Guadalupe Escamilla MD [address] [place] [address] 01/13/2026 11:00 AM EDT Office Visit [facility] HEMATOLOGY & ONCOLOGY [address] [facility] [address] [place] [address] Rocio Kellogg MD [address]00 [facility] [address] [place] [address] 01/14/2026 11:00 AM EDT Office Visit [facility] NEUROLOGY [address] [place] [phone] Jose Armando Cisse MD [address] [place] [address] 01/20/2026 10:30 AM EDT Appointment [facility] [address] [facility] [address] [place] [address] 08/03/2026 9:00 AM EDT Office Visit [facility] GENERAL SURGERY [address] [place] [address] Frandy Menendez MD [address] [facility] [address] [place] [address] documented as of this encounter Procedures Procedure Name Priority Date/Time Associated Diagnosis Comments CBC WITH AUTO DIFFERENTIAL Routine 10/15/2025 10:56 AM EST Malignant neoplasm of left breast in female, estrogen receptor positive, unspecified site of breast CBC AND DIFFERENTIAL Routine 10/15/2025 10:56 AM EST Malignant neoplasm of left breast in female, estrogen receptor positive, unspecified site of breast TSH Routine 10/15/2025 10:56 AM EST Nontoxic multinodular goiter T4, FREE Routine 10/15/2025 10:56 AM EST Nontoxic multinodular goiter COMPREHENSIVE METABOLIC PANEL Routine 10/15/2025 10:56 AM EST Malignant neoplasm of left breast in female, estrogen receptor positive, unspecified site of breast documented in this encounter Results * (ABNORMAL) CBC Auto Differential (10/15/2025 10:56 AM EST) WBC 6.82 3.40 - 10.80 10*3/mm3 10/15/2025 11:03 AM EST [facility] RBC 4.47 3.77 - 5.28 10*6/mm3 10/15/2025 11:03 AM EST [facility] Hemoglobin 13.2 12.0 - 15.9 g/dL 10/15/2025 11:03 AM [facility] Hematocrit 40.9 34.0 - 46.6 % 10/15/2025 11:03 AM [facility] MCV 91.5 79.0 - 97.0 fL 10/15/2025 11:03 AM [facility] MCH 29.5 26.6 - 33.0 pg 10/15/2025 11:03 AM [facility] MCHC 32.3 31.5 - 35.7 g/dL 10/15/2025 11:03 AM [facility] RDW 12.2(L) 12.3 - 15.4 % 10/15/2025 11:03 AM [facility] RDW-SD 41.9 37.0 - 54.0 fl 10/15/2025 11:03 AM [facility] MPV 9.5 6.0 - 12.0 fL 10/15/2025 11:03 AM [facility] Platelets 234 140 - 450 10*3/mm3 10/15/2025 11:03 AM [facility] Neutrophil % 57.2 42.7 - 76.0 % 10/15/2025 11:03 AM [facility] Lymphocyte % 34.6 19.6 - 45.3 % 10/15/2025 11:03 AM [facility] Monocyte % 5.0 5.0 - 12.0 % 10/15/2025 11:03 AM [facility] Eosinophil % 2.8 0.3 - 6.2 % 10/15/2025 11:03 AM [facility] Basophil % 0.3 0.0 - 1.5 % 10/15/2025 11:03 AM [facility] Immature Grans % 0.1 0.0 - 0.5 % 10/15/2025 11:03 AM [facility] Neutrophils, Absolute 3.90 1.70 - 7.00 10*3/mm3 10/15/2025 11:03 AM [facility] Lymphocytes, Absolute 2.36 0.70 - 3.10 10*3/mm3 10/15/2025 11:03 AM [facility] Monocytes, Absolute 0.34 0.10 - 0.90 10*3/mm3 10/15/2025 11:03 AM [facility] Eosinophils, Absolute 0.19 0.00 - 0.40 10*3/mm3 10/15/2025 11:03 AM EST [facility] Basophils, Absolute 0.02 0.00 - 0.20 10*3/mm3 10/15/2025 11:03 AM EST [facility] Immature Grans, Absolute 0.01 0.00 - 0.05 10*3/mm3 10/15/2025 11:03 AM EST [facility] Blood Venipuncture / Unknown 10/15/2025 10:56 AM EST 10/15/2025 10:56 AM EST Rocio Kellogg MD LAB BLOOD ORDERABLES Final Resul t [facility]
[address] [place] [address], * T4, Free (10/15/2025 10:56 AM EST) Free T4 0.93 0.92 - 1.68 ng/dL 10/15/2025 11:55 AM EST [facility] Blood Venipuncture / Unknown 10/15/2025 10:56 AM EST 10/15/2025 10:56 AM EST Maria Guadalupe Box MD LAB BLOOD ORDERABLES Final Res ult [facility]
[address] [place] [address], * TSH (10/15/2025 10:56 AM EST) TSH 2.130 0.270 - 4.200 uIU/mL 10/15/2025 11:55 AM EST [facility] Blood Venipuncture / Unknown 10/15/2025 10:56 AM EST 10/15/2025 10:56 AM EST Maria Guadalupe Box MD LAB BLOOD ORDERABLES Final Res ult [facility]
[address] [place] [address], * Comprehensive Metabolic Panel (10/15/2025 10:56 AM EST) Glucose 96 65 - 99 mg/dL 10/15/2025 11:55 AM [facility] BUN 14.0 6.0 - 20.0 mg/dL 10/15/2025 11:55 AM [facility] Creatinine 0.93 0.57 - 1.00 mg/dL 10/15/2025 11:55 AM [facility] Sodium 140 136 - 145 mmol/L 10/15/2025 11:55 AM [facility] Potassium 3.8 3.5 - 5.2 mmol/L 10/15/2025 11:55 AM [facility] Chloride 104 98 - 107 mmol/L 10/15/2025 11:55 AM [facility] CO2 25.4 22.0 - 29.0 mmol/L 10/15/2025 11:55 AM [facility] Calcium 9.1 8.6 - 10.5 mg/dL 10/15/2025 11:55 AM [facility] Total Protein 6.6 6.0 - 8.5 g/dL 10/15/2025 11:55 AM [facility] Albumin 3.9 3.5 - 5.2 g/dL 10/15/2025 11:55 AM [facility] ALT (SGPT) 23 1 - 33 U/L 10/15/2025 11:55 AM [facility] AST (SGOT) 22 1 - 32 U/L 10/15/2025 11:55 AM [facility] Alkaline Phosphatase 94 39 - 117 U/L 10/15/2025 11:55 AM [facility] Total Bilirubin 0.3 0.0 - 1.2 mg/dL 10/15/2025 11:55 AM [facility] Globulin 2.7 gm/dL 10/15/2025 11:55 AM EST [facility] Comment:Calculated Result A/G Ratio 1.4 g/dL 10/15/2025 11:55 AM EST [facility] BUN/Creatinine Ratio 15.1 7.0 - 25.0 10/15/2025 11:55 AM EST [facility] Anion Gap 10.6 5.0 - 15.0 mmol/L 10/15/2025 11:55 AM EST [facility] eGFR 75.0 >60.0 mL/min/1.7 3 10/15/2025 11:55 AM EST [facility] Blood Venipuncture / Unknown 10/15/2025 10:56 AM EST 10/15/2025 10:56 AM EST [facility] - 10/15/2025 11:55 AM EST GFR Categories in Chronic Kidney Disease (CKD) [...] does not include race as a factor us Rocio Kellogg MD LAB BLOOD ORDERABLES Final Resul t [facility]
[address] [place] [address], documented in this encounter Visit Diagnoses Diagnosis Malignant neoplasm of left breast in female, estrogen receptor positive, unspecified site of breast Nontoxic multinodular goiter documented in this encounter Additional Health Concerns Assessment Noted Time PHQ-2 Depression Total Score: 2 04/07/20 24 2:53 PM EDT documented as of this encounter Care Teams Neurodiagnostic Technician Relationship Specialty Start Date End Date Stephanie Olivera APRN [facility]0 [facility] [address] [place] [address] PCP - General Family Medicine 10/22/24 documented as of this encounter
--- OUTSIDE RECORDS SUMMARY | 2025-10-15 11:00 | XMS_ITS | Encounter Summary ---
Author Organization [facility] Address [address] [place] [address] Care Team Providers Care Salesperson Household Appliances Name Role Phone Stephanie Olivera APRN Primary Care Provid er Reason for Referral * Consultation (Routine) - Authorized Specialty Diagnoses / Procedures Referred By Cristina t Referred To Contact Neurology Diagnoses Malignant neoplasm of left breast in female, estrogen receptor positive, unspecified site of breast Ocular migraine Procedures [place] OFFICE/OUTPATIENT NEW MODERATE MDM 45 MINUTES Dhara Delaney APRN [address] [place] [address] Phone: tel: fax: Jose Armando Cisse MD [address] [facility] [address] [place] [address] Phone: tel: fax: Referral ID Status Reason Start Date Expiration Date Visits Requested Visits Authorized [id number] Authorized Specialty Services Required 01/14/2027 [address] Cisse or first available provider for ocular migraines * Consultation (Routine) - Authorized Specialty Diagnoses / Procedures Referred By Contmain t Referred To Contact Cardiology Diagnoses Malignant neoplasm of left breast in female, estrogen receptor positive, unspecified site of breast Heart palpitations Procedures [place] OFFICE/OUTPATIENT NEW MODERATE MDM 45 MINUTES Dhara Delaney APRN [address] [facility] [address] [place] [address] Phone: tel: fax: Gonzalo Nuñez MD [address] [facility] [address] [place] [address] Phone: tel: fax: Referral ID Status Reason Start Date Expiration Date Visits Requested Visits Authorized [id number] Authorized Specialty Services Required 01/14/2027 1 1 Encounter Details Date Type Department Care Team (Late st Contact Info) Description 10/15/2025 11:00 AM EST Office Visit [facility] HEMATOLOGY & ONCOLOGY [address] [facility] [address] [place] [address] Dhara Delaney APRN [address] [facility] [address] [place] [address] Malignant neoplasm of left breast in female, estrogen receptor positive, unspecified site of breast (Primary Dx); Heart palpitations; Ocular migraine Social History Tobacco Use Types Packs/Day Years Used Date Smoking Tobacco: Never Smokeless Tobacco: Never Alcohol Use Standard Drinks/Week Comments Never 0 (1 standard drink = 0.6 oz pur e alcohol) Abuse Screen Answer Date Recorded Feels Unsafe at Home or Work/School no 04/01/2024 Feels Threatened by Someone no 060 02/2024 Does Anyone Try to Keep You [...] Sign Reading Time Taken Comments Blood Pressure 129/81 10/15/2025 11:01 AM EST Pulse 107 10/15/2025 11:01 AM EST Temperature 36.3 C (97.3 F) 10/15/2025 11:01 AM EST Respiratory Rate 18 10/15/2025 11:01 AM EST Oxygen Saturation 100% 10/15/2025 11:01 AM EST Inhaled Oxygen Concentration - - Weight 105 kg (232 lb 6.4 oz) 10/15/2025 11:01 A M EST Height 165.1 cm (5' 5 ) 10/15/2025 11:01 AM EST Body Mass Index 38.67 10/15/2025 11:01 AM EST documented in this encounter Progress Notes * Dhara Delaney, MARKETING BUDGET ANALYST - 10/15/2025 11:00 AM EST PROBLEM LIST: pT1cN0(i+)M0 ER positive (100%, 3+) [place] positive (>95%, 3+) HER2 positive (2+, positive [...] for follow-up. She continues on tamoxifen. She had a MRI of brain recently due to increasing headaches and ocular migraines. MRI was normal. She is having ocular migraines 2-3 times a month. The episodes last 10-20 minutes. She states the ocular migraines actually started during chemotherapy. She describes her headaches as nagging. The headaches improve with ibuprofen or tylenol. She is concerned about heart racing/palpitations with most physical activity. She does not associate the heart racing with anxiety generally. She does have some mild shortness of breath with the episodes. When she checks her heart rate during an episode it shows her heart rate above 150. Her oxygensaturation stays above 90%. She denies any chest pain. She states these episodes started during chemotherapy but seem to be occurring more frequently now. Since increasing her Effexor she does think her hot flashes and anxiety are slightly better. She reports her peripheral neuropathy in her hands and feet continue to improve. The neuropathy is intermittent and less frequent. Objective BP 129/81 Pulse 107 Temp 97.3 ??F (36.3 ??C) (Temporal) Resp 18 Ht 165.1 cm (65 ) Wt 105 kg (232 lb 6.4 oz) SpO2 100% BMI 38.67 kg/m?? Vitals: 10/15/25 1101 PainSc: 0-No pain Comment: no new pain ECOG score: 0 General: well appearing female in no acute distress Neuro: alert and oriented HEENT: sclera anicteric, oropharynx clear Lymphatics: no cervical, supraclavicular or axillary lymphadenopathy Cardiovascular: regular rate and rhythm Lungs: clear bilaterally Skin: no rashes, lesions, bruising, or petechiae Psych: mood and affect appropriate RECENT LABS: Lab Results Component Value Date WBC 6.82 10/15/2025 HGB 13.2 10/15/2025 HCT 40.9 10/15/2025 MCV 91.5 10/15/2025 PLT 234 10/15/2025 Lab Results Component Value Date GLUCOSE 87 07/15/2025 BUN 13.4 07/15/2025 CREATININE 0.83 07/15/2025 BCR 16.1 07/15/2025 K 3.6 07/15/2025 CO2 26.0 07/15/2025 CALCIUM 8.9 07/15/2025 ALBUMIN 4.1 07/15/2025 AST 21 07/15/2025 ALT 25 07/15/2025 ASSESSMENT AND PLAN: Martha Gregory is a 50 y.o. 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 Tamoxifen was started 12/03/2024. She does have some generalized joint pain related to the tamoxifen.We will plan to continue the tamoxifen for minimum of 5 years. Left diagnostic mammogram 07/22/2025 BI RADS category 3. Order has previously been placed for bilateral diagnostic mammogram due December 2025. Patient given breast imaging services scheduling phone number to call and schedule appointment. Hot flashes/anxiety: Symptoms slightly improved with increase of Effexor. Continue Effexor 150 mg daily. Urinary symptoms: Continue vaginal estrogen cream twice a week. Heart racing/palpitations: She has had heart racing symptoms that started during chemotherapy. Patient expresses more frequent episodes of heart racing and palpitations with no chest pain. Referral to cardio oncology for evaluation. Ocular migraines: She is having more frequent ocular migraines 2-3 times a month. She reports thesestarted during chemotherapy. Recent MRI brain 10/08/2025 was normal. Referral placed to neurology. ICE COMPRESS Study: Neuropathy improved to grade 1. Thyroid nodules: follows with endocrinology. Diabetes: Being managed by endocrinology. Chronic venous insufficiency: followed by vascular surgeon Dr. Bang Barkley at [facility]. Follow-up in 3 months with labs. I spent 40 minutes caring for Martha on this date of service. This time includes time spent by me in the following activities: preparing for the visit, reviewing tests, performing a medically appropriate examination and/or evaluation, counseling and educating the patient/family/caregiver, referring and communicating with other health managed care specialist, documenting information in the medical record, independently interpreting results and communicating that information with the patient/family/caregiver, ordering medications, ordering test(s), and obtaining a separately obtained history Dhara Delaney APRN [facility] Hematology and Oncology 10/15/2025 CC: documented in this encounter Plan of Treatment Upcoming Encounters Date Type Department Care Team (Late st Contact Info) Description 11/18/2025 10:00 AM EST Office Visit [facility] [address] [place] [address] Gissel Blum APRN [address] [place] [address] 11/23/2025 10:00 AM EST Office Visit [facility] [address] [facility] [address] [place] [address] Gonzalo Nuñez MD [address] [place] [address] 12/14/2025 2:45 PM EST Office Visit [facility] END[facility]CRINOLOGY [address] [place] [address] Maria Guadalupe Escamilla MD [address] [place] [address] 01/13/2026 11:00 AM EDT Office Visit [facility] HEMATOLOGY & ONCOLOGY [address] [facility] [address] [place] [phone] Rocio Kellogg MD [address] [facility] [address] [place] [address] 01/14/2026 11:00 AM EDT Office Visit [facility] NE[facility] [address] [facility] [address] [place] [address] Jose Armando Cisse MD [address] [facility] [address] [place] [address] 01/20/2026 10:30 AM EDT Appointment [facility] [address] [facility] [address] [place] [address] 08/03/2026 9:00 AM EDT Office Visit [facility] GENERAL SURGERY [address] [place] [address] Frandy Menendez MD 1760 [facility] [address] [place] [address] Scheduled Orders Name Type Priority Associated Diagnoses Orde r Schedule CBC & Differential Lab Panel Routine Malignant neoplasm of left breast in female, estrogen receptor positive, unspecified site of breast Expected: 01/06/2026 (Approximate), Expires: 10/15/2026 Comprehensive Metabolic Panel Lab Routine Malignant neoplasm of left breast in female, estrogen receptor positive, unspecified site of breast Expected: 01/06/2026 (Approximate), Expires: 10/16/2026 Scheduled Referrals Name Type Priority Associated Diagnoses Orde r Schedule Ambulatory Referral to Cardiology for Other, CardioOncology Program - [place], [place] Only; palpitations started with chemotherapy Outpatient Referral Routine Malignant neoplasm of left breast in female, estrogen receptor positive, unspecified site of breast Heart palpitations Ordered: 10/15/2025 Ambulatory Referral to Neurology Outpatient Referral Routine Malignant neoplasm of left breast in female, estrogen receptor positive, unspecified site of breast Ocular migraine Ordered: 10/15/2025 documented as of this encounter Visit Diagnoses Diagnosis Malignant neoplasm of left breast in female, estrogen receptor positive, unspecified site of breast- Primary Heart palpitations Palpitations Ocular migraine Variants of migraine, not elsewhere classified, without mention of intractable migraine without mention of status migrainosus documented in this encounter Additional Health Concerns Assessment Noted Time PHQ-2 Depression Total Score: 2 04/07/20 24 2:53 PM EDT documented as of this encounter Care Teams Salesperson Household Appliances Relationship Specialty Start Date End Date Stephanie Olivera APRN [facility] [address] [place] [address] PCP - General Family Medicine 10/22/24 documented as of this encounter
--- OUTSIDE RECORDS SUMMARY | 2025-10-19 07:47 | XMS_ITS | Encounter Summary ---
Author Organization [facility] Address [address] [place] [address] Care Team Providers Care Management Recruiter Name Role Phone Stephanie Olivera APRN Primary Care Provid er Encounter Details Date Type Department Care Team (Latest Contact Info) Description 10/08/2025 Travel Social History Tobacco Use Types Packs/Day [...] [facility] [address] [place] [address] Gissel Blum APRN [address] [place] [address] 11/23/2025 10:00 AM EST Office Visit [facility] CARDIOLOGY [address] [facility] [address] [place] [address] Gonzalo Nuñez MD [address] [facility] [address] [place] [address] 12/14/2025 2:45 PM EST Office Visit [facility] ENDOCRINOLOGY [address] [place] [phone] Maria Guadalupe Escamilla MD [address] [place] [address] 01/13/2026 11:00 AM EDT Office Visit [facility] HEMATOLOGY & ONCOLOGY [address] [facility] [address] [place] [address] Rocio Kellogg MD [address] [facility] [address] [place] [address] 01/14/2026 11:00 AM EDT [facility] [address] [place] [address] Jose Armando Cisse MD [address] [place] [address] 01/20/2026 10:30 AM EDT Appointment [facility] [address] [facility] [address] [place] [address] 08/03/2026 9:00 AM EDT Office Visit [facility] GENERAL SURGERY [address] [place] [phone] Frandy Menendez MD [address]60 [facility] [address] [place] [address] documented as of this encounter Visit Diagnoses Not on filedocumented in this encounter Additional Health Concerns Assessment Noted Time PHQ-2 Depression Total Score: 2 04/07/20 24 2:53 PM EDT documented as of this encounter Care Teams Management Recruiter Relationship Specialty Start Date End Date Stephanie Olivera APRN [address] [facility] [address] [place] [address] PCP - General Family Medicine 10/22/24 documented as of this encounter
--- OUTSIDE RECORDS SUMMARY | 2025-10-19 07:47 | XMS_ITS | Data Portability ---
Author Organization [facility] Mahin guillory, [facility] [place] [facility] Address [address] [place] [address] Assessment Encounter Date Assessment Date Assessment LastModified by Organization Details LastModified Time 06/17/2025 06/17/2025 F/U ANNUALLY FSE [email or web address] Not available 06/17/2025 10:52:55 Plan of Treatment [...] - Cryo AK completed JAILYN MARION [address] [place], [address], [facility] 07/29/2025 08:09:16 06/17/20 25 Destruction Premalignant Lesion(s) completed Latoya [facility] 06/17/2025 10:48:36 Imaging Results None recorded. Procedure [...] Smoking Status Never Smoker Jose Cordon Gail [facility] 07/29/2025 07:58:23 Sunscreen Use? Yes Informatio n [...] History Nothing Reported. Medical History Condition Response Squamous Cell Carcinoma N Acne N Skin Problems N Other Skin Condition N Varicose Veins Y Autoimmune disease N Eczema N Melanoma N Basal Cell Carcinoma N Skin Cancer N Gynecological HistoryNo gynecological history recorded. Obstetrics History GPAL:G 0 P 0 0 0 0 Past Encounters Encounter ID Performer Location Encounter Start Date Encounter Closed Date Diagnosis/Indication Diagnosis SNOMED-CT Code Diagnosis ICD10 Code Diagnosis IMO Codes Diagnosis Note [id number] ROBERT COLEMAN APRN [facility] [address] [place] [address] 06/17/2025 10:24:20 06/17/2025 10:53:28 Actinic keratosis 300804367 L57.0 07612 RIGHT FOREARMDIS CUSSED TX OPTIONS INCLUDING CRYO, 5FU, TOPICALSCR YO X 1RISKS OF CRYO SURGERY DISCUSSED; POST OP CARE INSTRUCTIO NS PROVIDED. VERBAL CONSENT TO TREAT GIVEN BY PATIENT. RECHECK IF PERSISTING Solar lentigo 87477346 L 81.4 1105 RECOMMEND SUN PROTECTIVE CLOTHING AND EQUATE SPORT SUNSCREEN AND CERAVE AM SUNSCREEN LOTION OTC DAILYDISCU SSED RISKS INHERENT TO CHEMICAL SUNSCREENS INCLUDING PHOTOALLER GIC, PHOTOTOXIC , ALLERGIC CONTACT AND IRRITANT CONTACT DERMATITIS .BENIGN APPEARANCE , PT REASSURED & ADVISED TO RTC WITH ANY CHANGES Multiple b enign melanocytic nevi 317646262 D22.9 [id number] HIGH NUMBER MULTIPLE SIMILARBEN IGN APPEARANCE ; PT REASSUREDR ECOMMEND ANNUAL FSE Angioma serpiginosum 494 11948 L81.7 1222 BENIGN APPEARANCE ; PT REASSURED Raised drake orrheic keratosis [id number] 24496 L82.0 [id number] BENIGN APPEARANCE ; PT REASSURED Senile angioma 4895421 D 18.01 452237 BENIGN APPEARANCE ; PT REASSURED 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 9 04935 BENIGN APPEARANCE ; PT REASSURED Multiple skin tags 88554 7009 L91.8 10371359 BENIGN APPEARANCE ; PT REASSURED Immunosuppression 269397 05 D84.9 [id number] HERCEPTINH /O BREAST CA, FINISHED CHEMO 03/2025 [id number] JAILYN MARION [address] [address] [place] [address] 07/29/2025 07:45:14 07/29/2025 08:24:12 Actinic keratosis 191893192 L57.0 53281 The nature of the diagnosis was discussed. [...] ID Guarantor Name 07/29/2025 1 [place] [id number] Elroy Gregory [id number] Martha Gregory Notes Date Note Type Note Provider Name and Address Organization Details Recorded Time 06/17/2025 text/html ROS as noted in the HPI NEW PATIENT - PREVIOUSLY SEEN BY [facility] OF BREAST [facility] - S/P CHEMO, IMMUNOTHERAPY 1) FSE- PT DESIRES TO HAVE SPOTS ON ENTIRE BODY EXAMINED TODAY. HAS HAD MOLE ON BACK REMOVED AT [facility] . NO H/O SKIN CA 2) PT C/O RED LESION ON RIGHT FOREARM X6 MONGHTS (-)ITCH/BLEED/PAIN. OTHERS TREATED WITH CRYO IN PAST Denies any other new, changing, or bleeding lesions, or other rashes. Patient feels well today and in a good mood. No family history of melanoma. ROBERT COLEMAN, WASH HELPER [address] [place], [address], [facility] 06/17/2025 13:25:41 07/29/2025 text/html ROS as noted in the HPI spot of concernlocation: chestduration: 4-5 weekstx: n/areports: pt had radiation and chemo this last year, spots are raised, scaly, and red JAILYN MARION [address] [place], [address], [facility] 07/29/2025 08:10:18 OBGyn Episode No OBEpisode recorded.
--- OUTSIDE RECORDS SUMMARY | 2025-10-19 07:47 | XMS_ITS | Encounter Summary ---
Author Organization [facility] Address [address] [phone] Care Team Providers Care Sourcing Consultant Name Role Phone Stephanie Olivera APRN Primary Care Provid er Reason for Visit * Reason Onset Date Comments Med Refill 10/06/2025 Encounter Details Date Type Department Care Team (Late st Contact Info) Description 10/06/2025 Refill [facility] HEMATOLOGY & ONCOLOGY [address] [phone] Rocio Kellogg MD [address] [place] [address] Anxiety (Primary Dx) Social History Tobacco Use Types [...] [facility] [address] [facility] [address] Gissel Blum APRN [address] [place] [address] 11/23/2025 10:00 AM EST Office Visit [facility] CARDIOLOGY [address] [facility] [address] [place] [address] Gonzalo Nuñez MD [address]20 [facility] [address] [place], [place] [phone] 12/14/2025 2:45 PM EST Office Visit [facility] ENDOCRINOLOGY [address] [place] [address] Maria Guadalupe Escamilla MD [address] [place] [address] 01/13/2026 11:00 AM EDT Office Visit [facility] HEMATOLOGY & ONCOLOGY [address] [facility] [address] [place] [address] Rocio Kellogg MD [address] [facility] [address] [place] [address] 01/14/2026 11:00 AM EDT Office Visit [facility] NEUROLOGY [address] [place] [address] Jose Armando Cisse MD [address] [place] [address] 01/20/2026 10:30 AM EDT Appointment [facility] BREAST CENTER [address] [facility] [address] [place], [place] [phone] 08/03/2026 9:00 AM EDT Office Visit [facility] GENERAL SURGERY [address] [place] [address] Frandy Menendez MD [address] [place] [address] documented as of this encounter Visit Diagnoses Diagnosis Anxiety- Primary Anxiety state, unspecified documented in this encounter Additional Health Concerns Assessment Noted Time PHQ-2 Depression Total Score: 2 04/07/20 24 2:53 PM EDT documented as of this encounter Care Teams Sourcing Consultant Relationship Specialty Start Date End Date Stephanie Olivera APRN [address] [facility] [address] [place] [address] PCP - General Family Medicine 10/22/24 documented as of this encounter
--- OUTSIDE RECORDS SUMMARY | 2025-10-19 07:47 | XMS_ITS | Continuity of Care Document ---
Author Organization [facility] ANA CRISTINA uMllins [place] Address [address] [place] [address] Assessment No assessment recorded. Plan of Treatment Reminders Order Date Submit Date Provider Last Modified By Organization Details Last Modified Time Details Appointments DERM VISIT 026 10:10AM ROBERT COLEMAN [facility] Not available Not available Not available Lab [...] DAK - Cryo AK completed JAILYN MARION [address] [place] [address], [phone] 07/29/2025 08:09:16 06/17/20 25 Destruction Premalignant Lesion(s) completed Latoya [facility]legria [facility] 06/17/2025 10:48:36 Imaging Results None [...] Smoking Status Never Smoker Jose BravoCONOR Lucio [facility] 07/29/2025 07:58:23 Sunscreen Use? Yes Informatio [...] Response Varicose Veins Y Autoimmune disease N Melanoma N Skin Cancer N Squamous Cell Carcinoma N Acne N Skin Problems N Other Skin Condition N Eczema N Basal Cell Carcinoma N Gynecological HistoryNo gynecological history recorded. Obstetrics History GPAL:G 0 P 0 0 0 0 Past Encounters Encounter ID Performer Location Encounter Start Date Encounter Closed Date Diagnosis/Indication Diagnosis SNOMED-CT Code Diagnosis ICD10 Code Diagnosis IMO Codes Diagnosis Note [id number] JAILYN MAR[address] [place] [address] 07/29/2025 07:45:14 07/29/2025 08:24:12 Actinic keratosis [id number] L57.0 84525 The nature of the diagnosis was discussed. [...] ID Guarantor Name 07/29/2025 1 [place] [id number] Elroy Gregory [id number] Martha Gregory Notes Date Note Type Note Provider Name and Address Organization Details Recorded Time 07/29/2025 text/html ROS as noted in the HPI spot of concernlocation: chestduration: 4-5 weekstx: n/areports: pt had radiation and chemo this last year, spots are raised, scaly, and red JAILYN MARION [address] [place], [address], [facility] 07/29/2025 08:10:18 OBGyn Episode No OBEpisode recorded.
--- OUTSIDE RECORDS SUMMARY | 2025-10-19 07:47 | XMS_ITS | Encounter Summary ---
Author Organization [facility] Address [address] [place] [address] Care Team Providers Care Pvc Loader Name Role Phone Stephanie Olivera APRN Primary Care Provid er Encounter Details Date Type Department Care Team (Latest Contact Info) Description 10/15/2025 Travel Social History Tobacco Use Types Packs/Day [...] [facility] [address] [place] [address] Gissel Blum APRN [address] [place] [address] 11/23/2025 10:00 AM EST Office Visit [facility] CARDIOLOGY [address] [facility] [address] [place] [address] Gonzalo Nuñez MD [address] [facility] [address] [place] [address] 12/14/2025 2:45 PM EST Office Visit [facility] ENDOCRINOLOGY [address] [place] [address] Maria Guadalupe Escamilla MD [address] [place] [address] 01/13/2026 11:00 AM EDT Office Visit [facility] HEMATOLOGY & ONCOLOGY [address] [facility] [address] [place] [address] Rocio Kellogg MD [address] [facility] [address] [place] [address] 01/14/2026 11:00 AM EDT Office Visit [facility] NEUROLOGY [address] [place] [address] Jose Armando Cisse MD [address] [place] [address] 01/20/2026 10:30 AM EDT Appointment [facility] BREAST CENTER [address] [facility] [address] [place] [address] 08/03/2026 9:00 AM EDT Office Visit [facility] GENERAL SURGERY [address] [place] [address] Frandy Menendez MD [address]60 [facility] [address] [place] [address] documented as of this encounter Visit Diagnoses Not on filedocumented in this encounter Additional Health Concerns Assessment Noted Time PHQ-2 Depression Total Score: 2 04/07/20 24 2:53 PM EDT documented as of this encounter Care Teams Pvc Loader Relationship Specialty Start Date End Date Stephanie Olivera APRN [address] [facility] [address] [place] [address] PCP - General Family Medicine 10/22/24 documented as of this encounter
--- OUTSIDE RECORDS SUMMARY | 2025-10-19 07:47 | XMS_ITS | Encounter Summary ---
Author Organization [facility] Address [address] [place] [address] Care Team Providers Care Physical Education Professor Name Role Phone Stephanie Olivera APRN Primary Care Provid er Encounter Details Date Type Department Care Team (Latest Contact Info) Description 09/10/2025 Travel Social History Tobacco Use Types Packs/Day [...] [facility] [address] [place] [address] Gissel Blum APRN [address] [place] [address] 11/23/2025 10:00 AM EST Office Visit [facility] CARDIOLOGY [address] [facility] [address] [place] [address] Gonzalo Nuñez MD [address]20 [facility] [address] [place] [address] 12/14/2025 2:45 PM EST Office Visit [facility] ENDOCRINOLOGY [address] [place] [address] Maria Guadalupe Escamilla MD [address] [place] [address] 01/13/2026 11:00 AM EDT Office Visit [facility] HEMATOLOGY & ONCOLOGY [address] [facility] [address] [place] [address] Rocio Kellogg MD [address] [facility] [address] [place] [address] 01/14/2026 11:00 AM EDT Office Visit [facility] NEUROLOGY [address] [place] [address] Jose Armando Cisse MD [address] [place] [address] 01/20/2026 10:30 AM EDT Appointment [facility] BREAST CENTER [address] [facility] [address] [place] [address] 08/03/2026 9:00 AM EDT Office Visit [facility] GENERAL SURGERY [address] [place] [address] Frandy Menendez MD [address] [facility] [address] [place] [address] documented as of this encounter Visit Diagnoses Not on filedocumented in this encounter Additional Health Concerns Assessment Noted Time PHQ-2 Depression Total Score: 2 04/07/20 24 2:53 PM EDT documented as of this encounter Care Teams Physical Education Professor Relationship Specialty Start Date End Date Stephanie Olivera APRN [address] [facility] [address] [place] [address] PCP - General Family Medicine 10/22/24 documented as of this encounter
--- OUTSIDE RECORDS SUMMARY | 2025-10-19 07:47 | XMS_ITS | Encounter Summary ---
Author Organization [facility] Address [address] [phone] Care Team Providers Care Manager Zone Name Role Phone Stephanie Olivera APRN Primary Care Provid er Reason for Visit * Reason Onset Date Comments Med Refill 10/18/2025 Encounter Details Date Type Department Care Team (Late st Contact Info) Description 10/18/2025 Refill [facility] ENDOCRINOLOGY [address] [place] [address] Maria Guadalupe Escamilla MD [address] [place] [address] Social History Tobacco Use Types Packs/Day [...] encounter Miscellaneous Notes * Telephone Encounter - Angus Kirby PA-C - 10/18/2025 11:56 AM EST Sent in higher dose. documented in this encounter Plan of Treatment Upcoming Encounters Date Type Department Care Team (Late st Contact Info) Description 11/18/2025 10:00 AM EST Office Visit [facility] [address] [place] [address] Gissel Blum, VICE PRESIDENT [employer] [address] [place] [address] 11/23/2025 10:00 AM EST Office Visit [facility] CARDIOLOGY [address] [facility] [address] [place] [address] Gonzalo Nuñez MD [address]20 [facility] [address] [place] [address] 12/14/2025 2:45 PM EST Office Visit [facility] ENDOCRINOLOGY [address] [place] [address] Maria Guadalupe Escamilla MD [address] [place] [address] 01/13/2026 11:00 AM EDT Office Visit [facility] HEMATOLOGY & ONCOLOGY [address] [facility] [address] [place] [address] Rocio Kellogg MD [address] [facility] [address] [place] [address] 01/14/2026 11:00 AM EDT Office Visit [facility] NEUROLOGY [address] [place] [address] Jose Armando Cisse MD [address] [place] [address] 01/20/2026 10:30 AM EDT Appointment [facility] 1760 [facility] [address] [place] [address] 08/03/2026 9:00 AM EDT Office Visit [facility] GENERAL SURGERY [address] [place] [address] Frandy Menendez MD 1760 [facility] [address] [place] [address] documented as of this encounter Visit Diagnoses Not on filedocumented in this encounter Additional Health Concerns Assessment Noted Time PHQ-2 Depression Total Score: 2 04/07/20 24 2:53 PM EDT documented as of this encounter Care Teams Manager Zone Relationship Specialty Start Date End Date Stephanie Olivera APRN [address] [facility] [address] [place] [address] PCP - General Family Medicine 10/22/24 documented as of this encounter
--- OUTSIDE RECORDS SUMMARY | 2025-10-19 07:47 | XMS_ITS | Clinical Summary ---
Author Organization [facility] Address [address] [place] [address] Care Team Providers Care Business Center Attendant Name Role Phone Stephanie Olivera APRN Primary Care Provid er Allergies Active Allergy Reactions Criticality Noted Date Comments Lisinopril Cough High 01/02/2024 Rosuvastatin Myalgia High 01/02/2024 Medications losartan (COZAAR) 25 MG tablet Take 1 tablet by mouth Daily. 5 Active ibuprofen (ADVIL,MOTRIN) 800 MG tablet Take 1 tablet by mouth 3 times a day. 5 Active albuterol sulfate HFA 108 (90 Base) MCG/ACT inhalerIndicati ons:Malignant neoplasm of left breast in female, estrogen receptor positive, unspecified site of breast,Upper respiratory tract infection, unspecified type Inhale 2 puffs Every 4 (Four) Hours As Needed for Wheezing or Shortness of Air. 18 g 5 Active venlafaxine XR (EFFEXOR-XR) 150 MG 24 hr capsuleIndicati ons:Malignant neoplasm of left breast in female, estrogen receptor positive, unspecified site of breast Take 1 capsule by mouth Daily. 30 capsule 5 5 Active estradiol (ESTRACE VAGINAL) 0.1 MG/GM vaginal cream Insert 1 g into the vagina 2 (Two) Times a Week. 42.5 g 12 5 Active Continuous Glucose Sensor (Dexcom G7 Sensor) miscIndications :Controlled type 2 diabetes mellitus without complication, without long-term current use of insulin,Hypogly cemia Use 1 each Every 10 (Ten) Days. 3 each 11 5 Active ALPRAZolam (XANAX) 0.5 MG tabletIndicatio ns:Anxiety Take 1 tablet by mouth As Needed for Anxiety (take 1 tablet as needed prior to MRI). 2 tablet 5 Active tamoxifen (NOLVADEX) 20 MG chemo tablet Take 1 tablet by mouth Daily. 30 tablet 11 5 Active Tirzepatide (Mounjaro) 7.5 MG/0.5ML solution auto-injectorIn dications:Contr olled type 2 diabetes mellitus without complication, without long-term current use of insulin Inject 7.5 mg under the skin into the appropriate area as directed 1 (One) Time Per Week. 6 mL 5 Active tamoxifen (NOLVADEX) 20 MG chemo tablet Take 1 tablet by mouth Daily. 30 tablet 11 5 025 Discontin ued(Reord er) Tirzepatide (MOUNJARO) 5 MG/0.5ML solution auto-injector Inject 5 mg under the skin into the appropriate area as directed 1 (One) Time Per Week. 6 mL 3 5 025 Discontin ued(Dose adjustmen t) Active Problems Problem Noted Date Diagnosed Date Nontoxic multinodular goiter 07/16/2025 Port-A-Cath in place 04/15/2024 Malignant neoplasm of left b reast in female, estrogen receptor positive 04/01/2024 Cancer Staging:Pathologic stage from 03/27/2024: ypT1, ypN0(sn), cM0, G2, ER+, WA+, HER2+ - Signed by Frandy Menendez MD on 07/28/2025 Clinical:Stage IA(cT1, cN0, cM0, G2, ER+, WA+, HER2+) - Signed by Frandy Menendez MD on 07/28/2025 Assessment & Plan (07/28/2025 9:37 AM EDT): Cancer Staging ypT1, ypN0(sn), cM0, G2, ER+, WA+, HER2+ Stage IA (cT1, cN0, cM0, G2, ER+, WA+, HER2+) Patient is status post left breast lumpectomy and sentinel for biopsy on 03/27/2024 She completed TCH and radiation On tamoxifen and following up with Dr. Kellogg Left diagnostic mammogram on 06/2025 with BI-RADS 3 Bilateral diagnostic mammogram in December 2025 Routine self breast exams Follow-up with Dr. Kellogg Encounters Date Type Department Care Team Description 10/18/[address] [facility] ENDOCRINOLOGY [address] [place] [address] Maria Guadalupe Escamilla MD 10/15/2025 11:00 AM EST Office Visit [facility] HEMATOLOGY & ONCOLOGY [address] [facility] [address] [place] [address] Dhara Delaney, SQL SERVER CONSULTANT Malignant neoplasm of left breast in female, estrogen receptor positive, unspecified site of breast (Primary Dx); Heart palpitations; Ocular migraine 10/15/2025 10:55 AM EST Lab [facility] ONCOL[facility]Y [facility] [address] [place] [address] Malignant neoplasm of left breast in female, estrogen receptor positive, unspecified site of breast; Nontoxic multinodular goiter 10/15/2025 Travel 10/08/2025 1:49 PM EST - 10/08/2025 11:59 PM EST Hospital Encounter [facility] MRI AT [address] [place] [address] Rocio Kellogg MD Malignant neoplasm of left breast in female, estrogen receptor positive, unspecified site of breast; Migraine aura occurring with and without headache Discharge Disposition: Home or Self Care 10/08/2025 Travel 10/06/[address] [facility] HEMATOLOGY & ONCOLOGY [address] [facility] [address] [place] [address] Rocio Kellogg MD Anxiety (Primary Dx) 10/06/[address] [facility] HEMATOLOGY & ONCOLOGY [address] [facility] [address] [place] [address] Rocio Kellogg MD 09/17/[address] [facility] H[facility]ATOLOG[facility] & ONCOLOGY [address] [facility] [address] [place] [address] Dhara Delaney APRN 09/10/2025 10:00 AM EST Office Visit [facility] ENDOCRINOLOGY [address] [place] [address] Maria Guadalupe Escamilla MD Controlled type 2 diabetes mellitus without complication, without long-term current use of insulin (Primary Dx); Nontoxic multinodular goiter 09/10/2025 Travel 08/03/[address] [facility]ATOLOGY & ONCOLOGY [address] [facility] [address] [place] [address] Dhara Delaney, SQL SERVER CONSULTANT Malignant neoplasm of left breast in female, estrogen receptor positive, unspecified site of breast 08/02/[address] [facility] END[facility]CR[facility] [address] [place] [address] Ade Becker 07/30/[address] [facility] ENDOCRINOLOGY [address] [place] [address] Maria Guadalupe Escamilla MD 07/28/2025 9:00 AM EDT Office Visit [facility] GENERAL SURGERY [address] [facility] [address] [place] [address] Frandy Menendez MD Malignant neoplasm of overlapping sites of left breast in female, estrogen receptor positive (Primary Dx) 07/28/2025 Travel 07/22/2025 9:00 AM EDT - 07/22/2025 11:59 PM EDT Hospital Encounter [facility] [address] [facility] [address] [place] [address] Frandy Menendez MD Malignant neoplasm of overlapping sites of left female breast, unspecified estrogen receptor status Discharge Disposition: Home or Self Care 07/22/2025 Travel from Last 3 Months Immunizations Immunization [...] Mass Index 38.67 10/15/2025 11:01 AM EST Plan of Treatment Upcoming Encounters Date Type Department Care Team (Late st Contact Info) Description 11/18/2025 10:00 AM EST Office [facility] [address] [place] [address] Gissel Blum APRN [address] [place] [address] 11/23/2025 10:00 AM EST Office Visit [facility] CARDIOLOGY [address] [facility] [address] [place] [address] Gonzalo Nuñez MD [address] [facility] [address] [place], [place] [address] 12/14/2025 2:45 PM EST Office Visit [facility] ENDOCRINOLOG[facility] [address] [place] [address] Maria Guadalupe Escamilla MD [address] [place] [address] 01/13/2026 11:00 AM EDT Office Visit [facility] H[facility]ATOLOG[facility] & ONCOLOGY [address] [facility] [address] [place] [address] Rocio Kellogg MD [address] [facility] [place] [address] 01/14/2026 11:00 AM EDT Office Visit [facility] NEUROLOGY [address] [place] [address] Jose Armando Cisse MD [address] [place] [address] 01/20/2026 10:30 AM EDT Appointment [facility] [address] [facility] [address] [place] [address] 08/03/2026 9:00 AM EDT Office Visit [facility] GENERAL SURGERY [address] [place] [address] Frandy Menendez MD [address] [place] [address] Health Maintenance Due Date Last Done Comments [...] Associated Diagnosis Comments CBC AND DIFFERENTIAL Routine 10/15/2025 10:56 AM EST Malignant neoplasm of left breast in female, estrogen receptor positive, unspecified site of breast CBC WITH AUTO DIFFERENTIAL Routine 10/15/2025 10:56 AM EST Malignant neoplasm of left breast in female, estrogen receptor positive, unspecified site of breast T4, FREE Routine 10/15/2025 10:56 AM EST Nontoxic multinodular goiter TSH Routine 10/15/2025 10:56 AM EST Nontoxic multinodular goiter COMPREHENSIVE METABOLIC PANEL Routine 10/15/2025 10:56 AM EST Malignant neoplasm of left breast in female, estrogen receptor positive, unspecified site of breast MRI BRAIN W WO CONTRAST STAT 10/08/2025 3:11 PM EST Malignant neoplasm of left breast in female, estrogen receptor positive, unspecified site of breast Migraine aura occurring with and without headache POCT GLUCOSE, BLD (NON STRIP) Routine 09/10/2025 9:56 AM EST Controlled type 2 diabetes mellitus without complication, without long-term current use of insulin MAMMO DIAGNOSTIC DIGITAL TOMOSYNTHESIS LEFT W CAD Routine 07/22/2025 10:52 AM EDT Malignant neoplasm of overlapping sites of left female breast, unspecified estrogen receptor status POCT GLYCOSYLATED HEMOGLOBIN (HGB A1C) Routine 07/16/2025 8:14 AM EDT Controlled type 2 diabetes mellitus without complication, without long-term current use of insulin from Last 3 Months or Most Recently Relevant to Health Maintenance Results * (ABNORMAL) CBC Auto Differential (10/15/2025 10:56 AM EST) WBC 6.82 3.40 - 10.80 10*3/mm3 10/15/2025 11:03 AM EST [facility] RBC 4.47 3.77 - 5.28 10*6/mm3 10/15/2025 11:03 AM EST [facility] Hemoglobin 13.2 12.0 - 15.9 g/dL 10/15/2025 11:03 AM EST [facility] Hematocrit 40.9 34.0 - 46.6 % 10/15/2025 11:03 AM [facility] MCV 91.5 79.0 - 97.0 fL 10/15/2025 11:03 AM [facility] MCH 29.5 26.6 - 33.0 pg 10/15/2025 11:03 AM [facility] MCHC 32.3 31.5 - 35.7 g/dL 10/15/2025 11:03 AM [facility] RDW 12.2(L) 12.3 - 15.4 % 10/15/2025 11:03 AM [facility] RDW-SD 41.9 37.0 - 54.0 fl 10/15/2025 11:03 AM [facility] MPV 9.5 6.0 - 12.0 fL 10/15/2025 11:03 AM [facility] Platelets 234 140 - 450 10*3/mm3 10/15/2025 11:03 AM [facility] Neutrophil % 57.2 42.7 - 76.0 % 10/15/2025 11:03 AM [facility] Lymphocyte % 34.6 19.6 - 45.3 % 10/15/2025 11:03 AM [facility] Monocyte % 5.0 5.0 - 12.0 % 10/15/2025 11:03 AM [facility] Eosinophil % 2.8 0.3 - 6.2 % 10/15/2025 11:03 AM [facility] Basophil % 0.3 0.0 - 1.5 % 10/15/2025 11:03 AM [facility] Immature Grans % 0.1 0.0 - 0.5 % 10/15/2025 11:03 AM [facility] Neutrophils, Absolute 3.90 1.70 - 7.00 10*3/mm3 10/15/2025 11:03 AM [facility] Lymphocytes, Absolute 2.36 0.70 - 3.10 10*3/mm3 10/15/2025 11:03 AM EST [facility] Monocytes, Absolute 0.34 0.10 - 0.90 10*3/mm3 10/15/2025 11:03 AM EST [facility] Eosinophils, Absolute 0.19 0.00 - 0.40 10*3/mm3 10/15/2025 11:03 AM EST [facility] Basophils, Absolute 0.02 0.00 - 0.20 10*3/mm3 10/15/2025 11:03 AM EST [facility] Immature Grans, Absolute 0.01 0.00 - 0.05 10*3/mm3 10/15/2025 11:03 AM EST [facility] Blood Venipuncture / Unknown 10/15/2025 10:56 AM EST 10/15/2025 10:56 AM EST Rocio Kellogg MD LAB BLOOD ORDERABLES Final Resul t Performing Organization Address City/[facility]/ZIP Co de Phone Number [facility]
[address] [place] [address], * TSH (10/15/2025 10:56 AM EST) Pathologist [facility] TSH 2.130 0.270 - 4.200 uIU/mL 10/15/2025 11:55 AM EST [facility] Blood Venipuncture / Unknown 10/15/2025 10:56 AM EST 10/15/2025 10:56 AM EST Maria Guadalupe Box MD LAB BLOOD ORDERABLES Final Res ult [facility]
[address] [place] [address], * T4, Free (10/15/2025 10:56 AM EST) Pathologist [facility] Free T4 0.93 0.92 - 1.68 ng/dL 10/15/2025 11:55 AM [facility] Blood Venipuncture / Unknown 10/15/2025 10:56 AM EST 10/15/2025 10:56 AM EST us Maria Guadalupe Box MD LAB BLOOD ORDERABLES Final Res ult [facility]
[address] [place] [address], * Comprehensive Metabolic Panel (10/15/2025 10:56 AM EST) Glucose 96 65 - 99 mg/dL 10/15/2025 11:55 AM [facility] BUN 14.0 6.0 - 20.0 mg/dL 10/15/2025 11:55 AM [facility] Creatinine 0.93 0.57 - 1.00 mg/dL 10/15/2025 11:55 AM [facility] Sodium 140 136 - 145 mmol/L 10/15/2025 11:55 AM [facility] Potassium 3.8 3.5 - 5.2 mmol/L 10/15/2025 11:55 AM [facility] Chloride 104 98 - 107 mmol/L 10/15/2025 11:55 AM [facility] CO2 25.4 22.0 - 29.0 mmol/L 10/15/2025 11:55 AM [facility] Calcium 9.1 8.6 - 10.5 mg/dL 10/15/2025 11:55 AM [facility] Total Protein 6.6 6.0 - 8.5 g/dL 10/15/2025 11:55 AM [facility] Albumin 3.9 3.5 - 5.2 g/dL 10/15/2025 11:55 AM [facility] ALT (SGPT) 23 1 - 33 U/L 10/15/2025 11:55 AM [facility] AST (SGOT) 22 1 - 32 U/L 10/15/2025 11:55 AM EST [facility] Alkaline Phosphatase 94 39 - 117 U/L 10/15/2025 11:55 AM EST [facility] Total Bilirubin 0.3 0.0 - 1.2 mg/dL 10/15/2025 11:55 AM EST [facility] Globulin 2.7 gm/dL 10/15/2025 11:55 AM EST [facility] Comment:Calculated Result A/G Ratio 1.4 g/dL 10/15/2025 11:55 AM EST [facility] BUN/Creatinine Ratio 15.1 7.0 - 25.0 10/15/2025 11:55 AM EST [facility] Anion Gap 10.6 5.0 - 15.0 mmol/L 10/15/2025 11:55 AM EST [facility] eGFR 75.0 >60.0 mL/min/1.7 3 10/15/2025 11:55 AM EST [facility] Blood Venipuncture / Unknown 10/15/2025 10:56 AM EST 10/15/2025 10:56 AM EST [facility] - 10/15/2025 11:55 AM EST GFR [...] MD LAB BLOOD ORDERABLES Final Resul t [facility]
[address] [place] [address], * MRI Brain With & Without Contrast (10/08/2025 3:11 PM EST) Anatomical Region Laterality Modality Head, Neck N/A Magnetic Resonan ce 10/08/2025 3:13 PM EST Impressions 10/08/2025 3:16 PM EST Impression: Normal contrast-enhanced MRI of the brain. Electronically Signed: Mckay Velez MD 10/08/2025 3:16 PM EST Workstation ID: [id number] Narrative 10/08/2025 3:16 PM EST MRI BRAIN [...] MD 10/08/2025 3:16 PM EST Workstation ID: [id number] Rocio Kellogg MD IM MRI ORDERABLES Final Result * POC Glucose, Blood (09/10/2025 9:56 AM EST) Glucose 101 70 - 130 mg/dL Lot Number [id number] Expiration Date 03/15/2026 Blood 09/10/2025 9:56 AM EST Maria Guadalupe Box MD POINT OF CARE TEST ORDERABLES Final Result * Mammo Diagnostic Digital Tomosynthesis Left With [...] MAMMOGRAPHY ORDERABLE S Final Result * POC Glycosylated Hemoglobin (Hb A1C) (07/16/2025 8:14 AM EDT) Hemoglobin A1C 5.7 4.5 - 5.7 % [facility] Lot Number [id number] [facility] Expiration Date 01/28/2027 [facility] Blood 07/16/2025 8:14 AM EDT us Maria Guadalupe Box MD POINT OF CARE TEST ORDERABLES Final Result [facility]
[address] [place] [address], from Last 3 Months or Most Recently Relevant to Health Maintenance Insurance [facility] PPO Care Teams Business Center Attendant Relationship Specialty Start Date End Date Stephanie Olivera APRN [address] [facility] [address] [facility] [address] PCP - General Family Medicine 12/26/24
--- OUTSIDE RECORDS SUMMARY | 2025-10-19 07:47 | XMS_ITS | Encounter Summary ---
Author Organization [facility] Address [address] [phone] Care Team Providers Care Top Edge Beveler Name Role Phone Stephanie Olivera APRN Primary Care Provid er Reason for Visit * Reason Comments Med Refill Encounter Details Date Type Department Care Team (Late st Contact Info) Description 09/17/2025 Refill [facility] HEMATOLOGY & ONCOLOGY [address] [facility] [address] [place] [phone] Dhara Delaney APRN [address] [facility] [address] [place] [phone] Social History Tobacco Use Types Packs/Day Years [...] Telephone Encounter - Yeni Cruz MA - 09/17/2025 8:09 AM EST RX sent & pharmacy rec'd [id number] #30 w/ RF documented in this encounter Plan of Treatment Upcoming Encounters Date Type Department Care Team (Late st Contact Info) Description 11/18/2025 10:00 AM EST Office Visit [facility] [address] [place] [address] Gissel Blum, SOCIAL PROBLEMS SPECIALIST [address] [place] [address] 11/23/2025 10:00 AM EST Office Visit [facility] CARDIOLOGY [address] [facility] [address] [place] [address] Gonzalo Nuñez MD [address] [facility] [address] [place] [address] 12/14/2025 2:45 PM EST Office Visit [facility] ENDOCRINOLOGY [address] [place] [address] Maria Guadalupe Escamilla MD [address] [place] [address] 01/13/2026 11:00 AM EDT Office Visit [facility] HEMATOLOGY & ONCOLOGY [address] [facility] [address] [place] [address] Rocio Kellogg MD [address] [facility] [address] [place] [address] 01/14/2026 11:00 AM EDT Office Visit [facility] NEUROLOGY [address] [place] [address] Jose Armando Cisse MD [address] [facility] [address] [place] [address] 01/20/2026 10:30 AM EDT Appointment [facility] [address] [facility] [address] [place] [address] 08/03/2026 9:00 AM EDT Office Visit [facility] GENERAL SURGERY [address] [place] [phone] Frandy Menendez MD [address] [facility] [address] [place] [address] documented as of this encounter Visit Diagnoses Not on filedocumented in this encounter Additional Health Concerns Assessment Noted Time PHQ-2 Depression Total Score: 2 04/07/20 24 2:53 PM EDT documented as of this encounter Care Teams Top Edge Beveler Relationship Specialty Start Date End Date Stephanie Olivera APRN [address] [facility] [address] [place] [address] PCP - General Family Medicine 10/22/24 documented as of this encounter
--- OUTSIDE RECORDS SUMMARY | 2025-10-19 07:47 | XMS_ITS ---
Author Organization [facility] Address [address] [place] [address] Care Team Providers Care Bill Of Materials Clerk Name Role Phone Stephanie Olivera APRN Primary Care Provid er Active Problems Problem Noted Date Diagnosed Date Nontoxic multinodular goiter 07/16/2025 Port-A-Cath in place 04/15/2024 Malignant neoplasm of left b reast in female, estrogen receptor positive 04/01/2024 Cancer Staging:Pathologic stage from 03/27/2024: ypT1, ypN0(sn), cM0, G2, ER+, FL+, HER2+ - Signed by Frandy Menendez MD on 07/28/2025 Clinical:Stage IA(cT1, cN0, cM0, G2, ER+, FL+, HER2+) - Signed by Frandy Menendez MD on 07/28/2025 Assessment & Plan (07/28/2025 9:37 AM EDT): Cancer Staging ypT1, ypN0(sn), cM0, G2, ER+, FL+, HER2+ Stage IA (cT1, cN0, cM0, G2, ER+, FL+, HER2+) Patient is status post left breast [...]
--- OUTSIDE RECORDS SUMMARY | 2025-10-19 07:48 | XMS_ITS | Encounter Summary ---
[facility] Organization [facility] Address [address] [phone] Care Team Providers Care Unmanned Equipment Operator Name Role Phone Stephanie Olivera APRN Primary Care Provid er Encounter Details Date Type Department Care Team (Late st Contact Info) Description 10/06/2025 Telephone [facility] [address] [facility] [address] [place] [address] Rocio Kellogg MD [address] [facility] [address] [place] [address] Social History Tobacco Use Types Packs/Day Years [...] encounter Miscellaneous Notes * Telephone Encounter - Aminata Tellez RN - 10/06/2025 9:42 AM EST Message sent to patient. Dr. Kellogg sending script for Xanax to take prior to scan * Telephone Encounter - Wes Lowe RegSched Rep - 10/06/2025 9:08 AM EST Called and spoke to patient regarding MRI being scheduled Monday 10/08 she has struggled with claustrophobia in a previous MRI. Is there any medication we can send in for her? documented in this encounter Plan of Treatment Upcoming Encounters Date Type Department Care Team (Late st Contact Info) Description 11/18/2025 10:00 AM EST Office [facility] [address] [place] [address] Gissel Blum APRN [address] [place] [address] 11/23/2025 10:00 AM EST Office Visit [facility] [address] [facility] [address] [place] [address] Gonzalo Nuñez MD [address]20 [facility] [address] [place] [address] 12/14/2025 2:45 PM EST Office Visit [facility] [address] [place] [address] Maria Guadalupe Escamilla MD [address] [place] [address] 01/13/2026 11:00 AM EDT Office Visit [facility] [address] [facility] [address] [place] [address] Rocio Kellogg MD [address] [facility] [address] [place] [address] 01/14/2026 11:00 AM EDT Office Visit [facility] NEUROLOGY [address] [place] [address] Jose Armando Cisse MD [address] [facility] [address] [place] [address] 01/20/2026 10:30 AM EDT Appointment [facility] [address] [facility] [address] [place] [address] 08/03/2026 9:00 AM EDT Office Visit [facility] MEDICAL [facility] GENERAL SURGERY [address] [place] [address] Frandy Menendez MD 1760 [facility] [address] [place] [address] documented as of this encounter Visit Diagnoses Not on filedocumented in this encounter Additional Health Concerns Assessment Noted Time PHQ-2 Depression Total Score: 2 04/07/20 24 2:53 PM EDT documented as of this encounter Care Teams Unmanned Equipment Operator Relationship Specialty Start Date End Date Stephanie Olivera APRN [address] [facility] [address] [place] [address] PCP - General Family Medicine 10/22/24 documented as of this encounter
[2025-10-19 08:49] LABS: Cholesterol 227 mg/dl (140-200); HDL Cholesterol 56 mg/dl (40-60); Triglycerides 212 mg/dl (30-150)
== END 2025-10-19 23:59 | disposition home or self-care (01) ==
LOC: LAB 07:45
PROVIDERS: PCP Nurse Practitioner Family; Visit Provider Internal Medicine Endocrinology, Diabetes & Metabolism
DX: E04.2 Nontoxic multinodular goiter (principal)
CPT/HCPCS: 36415; 80061